=== PATIENT | female | born 1945 | race Caucasian/White ===

== ENCOUNTER 2016-11-30 01:09 | Inpatient (IN) | payer MEDICARE ==
[2016-11-30] MEDS ORDERED: NS 0.9% 1000 ML* 1,000 ML IV ONE (01:23)
[2016-11-30] MEDS ORDERED: Meclizine TAB* 12.5 MG PO ONE (01:23)
[2016-11-30 01:50] LABS: Hematocrit 42 % (35-47); Mean Corpuscular HGB Conc 34 g/dl (31-36); Mean Corpuscular Hemoglobin 33 pg (27-31); Mean Corpuscular Volume 96 fL (80-97); Mean Platelet Volume 8 um3 (7.4-10.4); Red Blood Count 4.32 10^6/ul (4.0-5.4); Red Cell Distribution Width 13 % (10.5-15); White Blood Count 13.7 10^3/ul (3.5-10.8)
[2016-11-30 01:53] LABS: Add Diff/Slide Review? Slide Review Added; Comments Flag Yes
[2016-11-30 02:03] LABS: ALT 15 U/L (7-52); AST 22 U/L (13-39); Albumin 3.8 g/dL (3.2-5.2); Alkaline Phosphatase 90 U/L (34-104); Anion Gap 4 mmol/L (2-11); BUN/Creatinine Ratio 29.1 (8-20); Blood Urea Nitrogen 30 mg/dL (6-24); C Reactive Protein 312.91 mg/L (< 5.00); CO2 Carbon Dioxide 37 mmol/L (22-32); Calcium 10.2 mg/dL (8.6-10.3); Chloride 96 mmol/L (101-111); Creatine Kinase 258 U/L (10-223); EGFR African American 67.6 (>60); EGFR Non-African American 52.5 (>60); Globulin 3.4 g/dL (2-4); Glucose 124 mg/dL (70-100); Potassium 3.6 mmol/L (3.5-5.0); Sodium 137 mmol/L (133-145); Total Protein 7.2 g/dL (6.4-8.9)
[2016-11-30 02:07] LABS: Troponin I 0.05 ng/mL (<0.04)
[2016-11-30 02:16] LABS: Acetaminophen < 15 mcg/mL
--- NOTE | 2016-11-30 03:31 | ED ---
Vinicius Miller Anna, scribed for Lily Wyatt MD on 11/30/16 at 0127 . Adult Trauma - HPI Summary HPI Summary: Patient is a 71 y/o female BIBA to [facility] after sudden onset of a fall in her apartment today. Her son saw her yesterday but was not able to reach her today so called EMS. She was found on the floor with drawers and cords on top of her. She does not remember falling. She has noticed slurred speech and has pain throughout her body. Denies weakness, acute injuries or acute back pain. No Hx CVA. Hx is significant for previous falls. - History of Current Complaint Stated Complaint: AMS Hx Obtained From: Patient, EMS Mechanism of Injury: Fall - Additional Pertinent History Primary Care Physician: WHIT - Allergy/Home Medications Allergies/Adverse Reactions: Allergies Allergy/AdvReac Type Severity Reaction Status Date / Time Bupropion [From Wellbutrin] Allergy Altered Verified 11/30/16 01:18 Mental Status Iodine Allergy KHOURY SKIN Verified 11/30/16 01:18 decongestants Allergy Intermediate hyperactivi Uncoded 11/30/16 01:18 ty anesthesia Allergy states Uncoded 11/30/16 01:18 becomes violentlyl ill with vomiting. ENVIRONMENTAL Allergy GI Upset Uncoded 11/30/16 01:18 PMH/Surg Hx/FS Hx/Imm Hx Endocrine/Hematology History: Reports: Hx Thyroid Disease - HASHIMOTOS Cardiovascular History: Reports: Hx Hypercholesterolemia, Hx Hypertension, Other Cardiovascular Problems/Disorders - LBBB- BENIGN GI History: Reports: Hx Gastroesophageal Reflux Disease, Hx Hiatal Hernia, Other GI Disorders - DIVERTICULITIS Musculoskeletal History: Reports: Hx Arthritis - BACK, HIPS, Other Musculoskeletal History - DDD, S/P CERVICAL FUSION, CERVICAL SPINAL STENOSIS Sensory History: Reports: Hx Cataracts - LILY, Hx Contacts or Glasses - GLASSES Denies: Hx Hearing Aid Opthamlomology History: Reports: Hx Cataracts - LILY, Hx Contacts or Glasses - GLASSES Psychiatric History: Reports: Hx Anxiety - R/T TMJ - Cancer History Cancer Type, Location and Year: skin ca nose Hx Chemotherapy: No Hx Radiation Therapy: No - Surgical History Surgery Procedure, Year, and Place: SPINAL FUSION, 1999, [place] 1999 RIGHT ANKLE AND FIBULA, [place]. 2001 RIGHT FIBULA SURGERY. TUBAL LIGATION 1974, [place] BILAT CATARACT 2014 [facility] [place] Hx Anesthesia Reactions: Yes - AGITATION - Family History Known Family History: Positive: Hypertension, Other - GERD - Social History Occupation: Retired Lives: Alone Alcohol Use: None Hx Substance Use: No Substance Use Type: Reports: None Hx Tobacco Use: Yes Smoking Status (MU): Heavy Every Day Tobacco Smoker Type: Cigarettes Amount Used/How Often: 3/4 PACK A DAY Length of Time of Smoking/Using Tobacco: 50 YRS Have You Smoked in the Last Year: Yes Review of Systems Constitutional: Negative Eyes: Negative ENT: Negative Cardiovascular: Negative Respiratory: Negative Gastrointestinal: Negative Genitourinary: Negative Positive: Myalgia Skin: Negative Positive: Syncope, Slurred Speech Psychological: Normal All Other Systems Reviewed And Are Negative: Yes Physical Exam Triage Information Reviewed: Yes Vital Signs On Initial Exam: Temp Pulse Resp BP Pulse Ox 98.9 F 109 20 167/48 95 11/30/16 01:10 11/30/16 01:10 11/30/16 01:10 11/30/16 01:10 11/30/16 01:10 Vital Signs Reviewed: Yes Appearance: Positive: Well-Appearing, No Pain Distress Skin: Positive: Warm, Skin Color Reflects Adequate Perfusion, Dry Eyes: Positive: EOMI, ARLEEN ENT: Positive: Pharynx normal, TMs normal Neck: Positive: Supple, Nontender Respiratory/Lung Sounds: Positive: Clear to Auscultation, Breath Sounds Present. Negative: Rales, Rhonchi, Wheezes Cardiovascular: Positive: RRR, Other - no gallops. Negative: Murmur, Rub Abdomen Description: Positive: Nontender, Soft, Other: - no rebound. Negative: Distended, Guarding Bowel Sounds: Positive: Present Musculoskeletal: Positive: Strength/ROM Intact. Negative: Edema Left, Edema Right Neurological: Positive: Normal, Sensory/Motor Intact, Alert, Oriented to Person Place, Time, CN Intact II-III - II-XII, Other - NIH Stroke Scale 0, slurred speech, Horizontal Nystagmus Psychiatric: Positive: Affect/Mood Appropriate Diagnostics - Vital Signs Vital Signs Temp Pulse Resp BP Pulse Ox 11/30/16 02:35 106 22 136/89 93 11/30/16 02:14 106 23 91 11/30/16 01:36 107 22 96 11/30/16 01:10 98.9 F 109 20 167/48 95 - Laboratory Lab Results: Lab Results 11/30/16 11/30/16 11/30/16 Range/Units 01:25 01:25 01:25 WBC 13.7 H (3.5-10.8) 10^3/ul RBC 4.32 (4.0-5.4) 10^6/ul Hgb 14.0 (12.0-16.0) g/dl Hct 42 (35-47) % MCV 96 (80-97) fL MCH 33 H (27-31) pg MCHC 34 (31-36) g/dl RDW 13 (10.5-15) % Plt Count 426 (150-450) 10^3/ul MPV 8 (7.4-10.4) um3 Neut % (Auto) 74.8 (38-83) % Lymph % (Auto) 6.8 L (25-47) % [place] % (Auto) 17.8 H (1-9) % Eos % (Auto) 0 (0-6) % Baso % (Auto) 0.6 (0-2) % Absolute Neuts (auto) 10.2 H (1.5-7.7) 10^3/ul Absolute Lymphs (auto) 0.9 L (1.0-4.8) 10^3/ul Absolute Monos (auto) 2.4 H (0-0.8) 10^3/ul Absolute Eos (auto) 0 (0-0.6) 10^3/ul Absolute Basos (auto) 0.1 (0-0.2) 10^3/ul Absolute Nucleated RBC 0 10^3/ul Nucleated RBC % 0 INR (Anticoag Therapy) 0.95 (0.89-1.11) Sodium 137 (133-145) mmol/L Potassium 3.6 (3.5-5.0) mmol/L Chloride 96 L (101-111) mmol/L Carbon Dioxide 37 H (22-32) mmol/L Anion Gap 4 (2-11) mmol/L BUN 30 H (6-24) mg/dL Creatinine 1.03 H (0.51-0.95) mg/dL Est GFR ( Amer) 67.6 (>60) Est GFR (Non-Af Amer) 52.5 (>60) BUN/Creatinine Ratio 29.1 H (8-20) Glucose 124 H (70-100) mg/dL Lactic Acid (0.5-2.0) mmol/L Calcium 10.2 (8.6-10.3) mg/dL Total Bilirubin 0.60 (0.2-1.0) mg/dL AST 22 (13-39) U/L ALT 15 (7-52) U/L Alkaline Phosphatase 90 (34-104) U/L Total Creatine Kinase 258 H (10-223) U/L Troponin I 0.05 H* (<0.04) ng/mL C-Reactive Protein 312.91 H (< 5.00) mg/L Total Protein 7.2 (6.4-8.9) g/dL Albumin 3.8 (3.2-5.2) g/dL Globulin 3.4 (2-4) g/dL Albumin/Globulin Ratio 1.1 (1-3) Acetaminophen < 15 mcg/mL 11/30/16 Range/Units 01:25 WBC (3.5-10.8) 10^3/ul RBC (4.0-5.4) 10^6/ul Hgb (12.0-16.0) g/dl Hct (35-47) % MCV (80-97) fL MCH (27-31) pg MCHC (31-36) g/dl RDW (10.5-15) % Plt Count (150-450) 10^3/ul MPV (7.4-10.4) um3 Neut % (Auto) (38-83) % Lymph % (Auto) (25-47) % [place] % (Auto) (1-9) % Eos % (Auto) (0-6) % Baso % (Auto) (0-2) % Absolute Neuts (auto) (1.5-7.7) 10^3/ul Absolute Lymphs (auto) (1.0-4.8) 10^3/ul Absolute Monos (auto) (0-0.8) 10^3/ul Absolute Eos (auto) (0-0.6) 10^3/ul Absolute Basos (auto) (0-0.2) 10^3/ul Absolute Nucleated RBC 10^3/ul Nucleated RBC % INR (Anticoag Therapy) (0.89-1.11) Sodium (133-145) mmol/L Potassium (3.5-5.0) mmol/L Chloride (101-111) mmol/L Carbon Dioxide (22-32) mmol/L Anion Gap (2-11) mmol/L BUN (6-24) mg/dL Creatinine (0.51-0.95) mg/dL Est GFR ( Amer) (>60) Est GFR (Non-Af Amer) (>60) BUN/Creatinine Ratio (8-20) Glucose (70-100) mg/dL Lactic Acid 1.3 (0.5-2.0) mmol/L Calcium (8.6-10.3) mg/dL Total Bilirubin (0.2-1.0) mg/dL AST (13-39) U/L ALT (7-52) U/L Alkaline Phosphatase (34-104) U/L Total Creatine Kinase (10-223) U/L Troponin I (<0.04) ng/mL C-Reactive Protein (< 5.00) mg/L Total Protein (6.4-8.9) g/dL Albumin (3.2-5.2) g/dL Globulin (2-4) g/dL Albumin/Globulin Ratio (1-3) Acetaminophen mcg/mL Result Diagrams: 11/30/16 01:25 11/30/16 01:25 Lab Statement: Any lab studies that have been ordered have been reviewed, and results considered in the medical decision making process. - Radiology CXR Xray Interpretation: No Acute Changes Radiology Interpretation Completed By: ED Physician - CT Head CT CT Interpretation: No Acute Changes CT Interpretation Completed By: Radiologist C-Spine CT CT Interpretation: No Acute Changes CT Interpretation Completed By: Radiologist - Impression: No acute fracture identified. Slight anterolisthesis of C3 on C4 likely chronic. Post fusion changes of C4-C6. - EKG 1:01 Cardiac Rate: Tachycardia - 107 bpm EKG Rhythm: Sinus Tachycardia EKG Interpretation: LBBB, unchanged from 11/09/2016 Adult Trauma Course/Dx - Course Course Of Treatment: 71 yo female with recent falls after ambien use. Comes in today after being found down on the ground when son couldn't get a hold of her. On exam she has lateral nystagmus and slurred speech but her nih scale is negative (except for the slurred speech)labs are good except for a wbc and elevated crp (we are awaiting a urine ) ct head and neck are negative. pt was unable to lift herself in bed due to weakness. Pt is to be seen and admitted by Dr. Pete - Diagnoses Provider Diagnoses: Fall, Altered mental status - Physician Notifications Discussed Care Of Patient With: Dr. Pete (hospitalist) at 3:15. Agrees to admit patient. Discharge - Discharge Plan Condition: Stable Disposition: ADMITTED TO [facility] Referrals: Avtar Swenson MD [Primary Care Provider] - NIH Scale - NIH Scale Level of Consciousness: Alert/Keenly Responsive Ask Patient the Month and His/Her Age: Both Correct Ask Pt to Open/Close Eyes and Sulfate Drier Machine Operator/Release Non-Paretic Hand: Both Correctly Visual Field Testing: No Visual Loss Facial Paresis-Pt to Smile & Close Eyes or Grimace Symmetry: Normal/Symmetrical Motor Function - Right Arm: No Drift-Holds 10 Seconds Motor Function - Left Arm: No Drift-Holds 10 Seconds Motor Function - Right Leg: No Drift-Holds 10 Seconds Motor Function - Left Leg: No Drift-Holds 10 Seconds Limb Ataxia-Must be out of Proportion to Weakness Present: Absent Sensory (Use Pinprick to Test Arms/Legs/Trunk/Face): Normal Best Language (Describe Picture, Name Items): No Aphasia Dysarthria (Read Several Words): Slurs Some Words Extinction and Inattention: No Abnormality The documentation as recorded by the Vinicius mcdonald Anna accurately reflects the service I personally performed and the decisions made by me, Lily Wyatt MD.
[2016-11-30 04:15] LABS: Urine Bacteria Absent (Absent); Urine Bilirubin Negative (Negative); Urine Glucose Negative (Negative); Urine Nitrite Negative (Negative)
[2016-11-30 04:33] LABS: Benzodiazepine Urine Screen None Detected (None Detect)
[2016-11-30] MEDS: Heparin VIAL(*) 5000 UNITS/ML VIAL (FIVE THOUSAND) SUBCUT SCH ×3 (05:51→22:04)
[2016-11-30] MEDS: NS 0.9% 1000 ML* 1,000 ML IV SCH ×2 (05:52→16:34)
--- NOTE | 2016-11-30 07:53 | RAD ---
Indication: Loss of consciousness, vertigo. CT of the brain with and without IV contrast. Ventricular structures are midline. No midline shift is noted. The extraction spaces are unremarkable. Motion artifact degrades the images. There is no evidence of intracranial mass or hemorrhage. Periventricular lucency is present consistent with chronic ischemic White change. The bony calvaria including mastoid air cells and paranasal sinuses are otherwise unremarkable. Overall no changes noted since 10/25/2016. IMPRESSION: No intracranial mass or hemorrhage is noted. Periventricular lucency consistent with chronic ischemic White matter change is noted.
--- NOTE | 2016-11-30 07:58 | RAD ---
Indication: Fall, shortness of breath. Single view of the chest is reviewed. No mediastinal shift is noted. Heart is of normal size and configuration. Lung cobb demonstrate no pleural fluid, pneumonia or pneumothorax. Comparison is made with previous exams dated 10/27/2016. IMPRESSION: No active cardiopulmonary disease is identified.
--- NOTE | 2016-11-30 09:08 | RAD ---
Indication: Neck injury. Vertigo and loss of consciousness. CT of the cervical spine was obtained in the axial plane. Sagittal and coronal reconstructed images were obtained. The skull base demonstrates no evidence of fracture. Mastoid air cells are unremarkable. The C1 ring is intact with no evidence of fracture. At C2-3, no disc protrusion is noted. No central or foraminal stenosis is noted. At C3-4, there is grade 1 spondylolisthesis likely due to facet arthropathy. There has been fusion of C4-5 and C5-6. This may contribute to the anterolisthesis. Spinal canal appears to be intact. No fracture is noted. At C4-5, there is fusion noted. No fracture is noted. No central or foraminal stenosis is noted. At C5-6, there is fusion. No central or foraminal stenosis is noted. Bone graft appears in place. At C6-7, degenerative disc disease with spondylytic ridge flattens the thecal sac. No foraminal stenosis is noted. At C7-T1, the disc space appears unremarkable. IMPRESSION: No fracture of the cervical spine is noted. Grade 1 spondylolisthesis of C3 on 4 likely secondary to fusion of C4 through C6. Degenerative disc disease at C6-7 is noted.
--- NOTE | 2016-11-30 09:49 | HP ---
HISTORY AND PHYSICAL: DATE OF ADMISSION: 11/30/16 CHIEF COMPLAINT: Altered mental status. HISTORY OF PRESENT ILLNESS: The patient is a 70-year-old woman who was discharged from [facility] late October and presents back after apparently being dizzy and falling and being found on the floor by her nephew. Unfortunately, nephew is not available for any history and the patient is quite confused. For example when asked about her falling and being on the floor initially she said she did, but then said she was not even there. She admits she is slurred in her speech, but cannot give me much more information. She denies any pain, shortness of breath, or any other symptoms. However, she does appear quite disoriented. PAST MEDICAL HISTORY: Significant for basal cell carcinoma, left bundle branch block, hiatal hernia, hypertension, GERD, hypothyroidism, Ángel's arthritis , Sjogren's, tobacco abuse, lung nodule, and left lower lobe emphysema, T12 compression fracture, pleural effusion, and she also fell at home prior to her last visit to the ER, which was thought to be secondary to medications. PAST SURGICAL HISTORY: Includes a cervical fusion December 1999 in [place] , right ankle and fibula fracture July 2002, bilateral cataract surgery. MEDICATIONS: Her medications currently are unknown, we are trying to get them from the PCP. It is unclear if anymore changes were made after the last time of discharge. ALLERGIES: She has an allergy/adverse reaction to WELLBUTRIN causes altered mental status, IODINE burned skin, DECONGESTANTS, hyperactivity. FAMILY HISTORY: Father with a history of melanoma; mother CVA. SOCIAL HISTORY: Smoking a pack of cigarettes a day for the past 50 years. Occasional alcohol use. Denies recreational drug use. Lives alone. It is her nephew, Brenden Mccollum, is her healthcare proxy. His cellphone is [phone]. REVIEW OF SYSTEMS: Unable to obtain because of patient's confusion. PHYSICAL EXAMINATION GENERAL: A pleasant woman lying in bed, in no acute distress. VITAL SIGNS: Temperature 98.2 degrees, heart rate 101 beats per minute, respiratory rate 19 breaths per minute, pulse ox 98%, blood pressure 136/89. HEENT: Normocephalic, atraumatic. Pupils are equal, round and reactive to light. Moist mucous membranes. NECK: Supple. No JVD, bruits, palpable thyroid or lymphadenopathy. CHEST: Clear to auscultation and percussion bilaterally. CARDIOVASCULAR: S1, S2 appreciated. ABDOMEN: Positive bowel sounds in all 4 quadrants . Soft, nontender, and nondistended. EXTREMITIES: No cyanosis, clubbing, or edema. +2 peripheral pulses bilaterally. NEUROLOGIC: Alert and oriented x1. Moves all extremities. 5/5 motor strength bilaterally but she does have some slurred speech. SKIN: No distinct rashes or abnormalities. LABORATORY DATA: White count is 13.7, hemoglobin 14.0, hematocrit 42, platelets 426. Sodium 137, potassium 3.6, chloride 96, CO2 37, BUN 30, creatinine 1.03, glucose 124, troponin 0.05. CRP 312.91. INR is 0.95. Urinalysis only has +3 rbc's. Toxicology is positive for opiates and cannabinoids. Her brain CT is pending. Preliminary shows no acute intracranial mass or hemorrhage. Cervical spine CT is also pending,No evidence of fracture. Chest x-ray shows no acute infiltrates. EKG shows sinus tachycardia with left bundle branch block pattern. ASSESSMENT AND PLAN: 1. Altered mental status. I think it is most likely secondary to medications. She does have opiates on board. There is a question of history of alcohol use, although I do not have an alcohol level at this point. We will admit her, do neurological checks q.4. I will get an MRI of her brain, I will get an echocardiogram as well. I will consider neuro consult if she does not clear up. At this point, I do not see any evidence of infectious process, although I am concerned about her CRP is so high for unexplained reason. 2. Hypertension. Right now, it appears to be borderline control, but we do not have a list of her medications. We will await that. 3. Hypothyroidism. We will also start on Synthroid once we get the proper dosage. 4. Leukocytosis. She had an elevated white count last time. Again that was an unclear etiology as well. 5. DVT prophylaxis. Heparin subcu. 6. The patient is a full code. TIME SPENT: Over 75 minutes was spent on this H and P and more than 40 minutes was spent in direct [id number] contact with the patient in evaluation, physical exam, counseling, and coordination of care. CC: Dr. Swenson* [id number]/[facility] #: [id number] [facility]
--- NOTE | 2016-11-30 10:12 | PN ---
Subjective Date of Service: 11/30/16 Interval History: patient was evaluated at the bedside found to be obtunded and very confused. She was given narcan 0.2 mg at the bedside and the patient awoke within 1 minute and was A+O x3. She reports she started having hallucinations last week, her nephew reports he saw her 4 days ago and she seemed "doped up" and reported she was "seeing things". Her son who lives in [facility] stayed with her over the weekend (I was not able to reach him as he is currently traveling to [place]). The patient was able to tell me her son was visiting and left tuesday. The pt reports at her baseline she has "lots of back pain" and feels that she cannot live without the pain medication. She reports she takes it 3-4 times a day. Currently she is not in pain. She denies any recent upper resp illness, fever or chills. reports she had loose stool yesterday and per nursing staff had loose stool today. Denies abd pain, CP or SOB. Denies vision changes Objective Active Medications: Heparin Sodium (Porcine) (Heparin Vial(*)) 5,000 units SUBCUT Q8HR [facility] Last Admin: 11/30/16 05:51 Dose: 5,000 units Sodium Chloride (Ns 0.9% 1000 Ml*) 1,000 mls @ 125 mls/hr IV PER RATE [facility] Last Admin: 11/30/16 05:52 Dose: 125 mls/hr Vital Signs 11/30/16 11/30/16 11/30/16 05:00 06:11 06:12 Temperature 98.2 F Pulse Rate 102 101 Respiratory 20 20 20 Rate Blood Pressure 146/69 146/72 (mmHg) O2 Sat by Pulse 93 92 Oximetry 11/30/16 11/30/16 07:27 08:00 Temperature 100.4 F Pulse Rate 106 Respiratory 16 16 Rate Blood Pressure 146/66 (mmHg) O2 Sat by Pulse 80 Oximetry Oxygen Devices in Use Now: Nasal Cannula Appearance: A+O x3 in NAD Eyes: No Scleral Icterus, PERRLA Ears/Nose/Mouth/Throat: NL Teeth, Lips, Gums, Mucous Membranes Moist Neck: NL Appearance and Movements; NL JVP Respiratory: Symmetrical Chest Expansion and Respiratory Effort, Clear to Auscultation Cardiovascular: NL Sounds; No Murmurs; No JVD, RRR, No Edema Abdominal: NL Sounds; No Tenderness; No Distention Lymphatic: No Cervical Adenopathy Extremities: No Edema Skin: No Rash or Ulcers, No Nodules or Sclerosis Neurological: Alert and Oriented x 3, NL Sensation, NL Muscle Strength and Tone , - - no pronator drift, EOMs intact. full ROM in all Ext. Lines/Tubes/Other Access: Clean, Dry and Intact Peripheral IV Result Diagrams: 11/30/16 01:25 11/30/16 01:25 Additional Lab and Data: Lab Results 11/30/16 11/30/16 11/30/16 Range/Units 01:25 01:25 01:25 WBC 13.7 H (3.5-10.8) 10^3/ul RBC 4.32 (4.0-5.4) 10^6/ul Hgb 14.0 (12.0-16.0) g/dl Hct 42 (35-47) % MCV 96 (80-97) fL MCH 33 H (27-31) pg MCHC 34 (31-36) g/dl RDW 13 (10.5-15) % Plt Count 426 (150-450) 10^3/ul MPV 8 (7.4-10.4) um3 Neut % (Auto) 74.8 (38-83) % Lymph % (Auto) 6.8 L (25-47) % [place] % (Auto) 17.8 H (1-9) % Eos % (Auto) 0 (0-6) % Baso % (Auto) 0.6 (0-2) % Absolute Neuts (auto) 10.2 H (1.5-7.7) 10^3/ul Absolute Lymphs (auto) 0.9 L (1.0-4.8) 10^3/ul Absolute Monos (auto) 2.4 H (0-0.8) 10^3/ul Absolute Eos (auto) 0 (0-0.6) 10^3/ul Absolute Basos (auto) 0.1 (0-0.2) 10^3/ul Absolute Nucleated RBC 0 10^3/ul Nucleated RBC % 0 INR (Anticoag Therapy) 0.95 (0.89-1.11) Sodium 137 (133-145) mmol/L Potassium 3.6 (3.5-5.0) mmol/L Chloride 96 L (101-111) mmol/L Carbon Dioxide 37 H (22-32) mmol/L Anion Gap 4 (2-11) mmol/L BUN 30 H (6-24) mg/dL Creatinine 1.03 H (0.51-0.95) mg/dL Est GFR ( Amer) 67.6 (>60) Est GFR (Non-Af Amer) 52.5 (>60) BUN/Creatinine Ratio 29.1 H (8-20) Glucose 124 H (70-100) mg/dL Lactic Acid (0.5-2.0) mmol/L Calcium 10.2 (8.6-10.3) mg/dL Total Bilirubin 0.60 (0.2-1.0) mg/dL AST 22 (13-39) U/L ALT 15 (7-52) U/L Alkaline Phosphatase 90 (34-104) U/L Total Creatine Kinase 258 H (10-223) U/L Troponin I 0.05 H* (<0.04) ng/mL C-Reactive Protein 312.91 H (< 5.00) mg/L Total Protein 7.2 (6.4-8.9) g/dL Albumin 3.8 (3.2-5.2) g/dL Globulin 3.4 (2-4) g/dL Albumin/Globulin Ratio 1.1 (1-3) Acetaminophen < 15 mcg/mL 11/30/16 Range/Units 01:25 WBC (3.5-10.8) 10^3/ul RBC (4.0-5.4) 10^6/ul Hgb (12.0-16.0) g/dl Hct (35-47) % MCV (80-97) fL MCH (27-31) pg MCHC (31-36) g/dl RDW (10.5-15) % Plt Count (150-450) 10^3/ul MPV (7.4-10.4) um3 Neut % (Auto) (38-83) % Lymph % (Auto) (25-47) % [place] % (Auto) (1-9) % Eos % (Auto) (0-6) % Baso % (Auto) (0-2) % Absolute Neuts (auto) (1.5-7.7) 10^3/ul Absolute Lymphs (auto) (1.0-4.8) 10^3/ul Absolute Monos (auto) (0-0.8) 10^3/ul Absolute Eos (auto) (0-0.6) 10^3/ul Absolute Basos (auto) (0-0.2) 10^3/ul Absolute Nucleated RBC 10^3/ul Nucleated RBC % INR (Anticoag Therapy) (0.89-1.11) Sodium (133-145) mmol/L Potassium (3.5-5.0) mmol/L Chloride (101-111) mmol/L Carbon Dioxide (22-32) mmol/L Anion Gap (2-11) mmol/L BUN (6-24) mg/dL Creatinine (0.51-0.95) mg/dL Est GFR ( Amer) (>60) Est GFR (Non-Af Amer) (>60) BUN/Creatinine Ratio (8-20) Glucose (70-100) mg/dL Lactic Acid 1.3 (0.5-2.0) mmol/L Calcium (8.6-10.3) mg/dL Total Bilirubin (0.2-1.0) mg/dL AST (13-39) U/L ALT (7-52) U/L Alkaline Phosphatase (34-104) U/L Total Creatine Kinase (10-223) U/L Troponin I (<0.04) ng/mL C-Reactive Protein (< 5.00) mg/L Total Protein (6.4-8.9) g/dL Albumin (3.2-5.2) g/dL Globulin (2-4) g/dL Albumin/Globulin Ratio (1-3) Acetaminophen mcg/mL Assess/Plan/Problems-Billing Assessment: Ms. Willoughby is a 71 yo female with a PMH of LLLB, HTN, hypothyroidism , tobacco abuse who was hospitalized at [facility] 10/25-10/30/16 for syncopal episode and T12 compression fx where she was DC'd to [facility] for rehab. Patient now returning after being found down at home on 11/29 - Patient Problems (1) Altered mental status Comment: - suspect narcotic/polypharmacy overdose, now A+O x3 after given narcan 0.2 mg. it is of concern that the pt is on Ambien, gabapentin, flexeril and norco. - CT brain negative. ammonia normal. CRP 312? no obvious signs of infection. Recheck labs in am, continue to monitor. - PT/OT (2) HTN (hypertension) Comment: Normotensive at this time. continue home medications losartan and cardizem (3) Rhabdomyolysis Comment: - Last seen 1 days prior to being found. - mildly elevated CPK. Hold statin. - continue IVFs - recheck in am (4) Tobacco abuse Comment: - nicotine replacement - smoking cessation (5) Hypothyroid Comment: check TSH, continue synthroid (6) DVT prophylaxis Comment: HSQ (7) Full code status Status and Disposition: inpatient with Altered mental status thought to be secondary to polypharmacy opioid overdose.
[2016-11-30] MEDS: cefTRIAXone VIAL(*) 1,000 MG in NS 0.9% 50 ML* 50 ML IVPB SCH (12:22)
[2016-11-30 13:17] LABS: FIO2 4
[2016-11-30 13:20] LABS: PCO2 Arterial 44 mmHg (35-45)
[2016-11-30] MEDS ORDERED: Naloxone* 0.4 MG/ML 1 ML VIAL IV PUSH ONE (13:24)
[2016-11-30] MEDS ORDERED: Naloxone* 0.4 MG/ML 1 ML VIAL ONE (13:29)
--- NOTE | 2016-11-30 16:14 | ECHO ---
Patient: MARK DEL TORO Rec#: [id number] : 1945 Date: 11/30/2016 Age: 71y Height: 167 cm / 65.7 in Weight: 72 kg / 158.7 lbs Sex: F BSA: 1.81 Room#: 436 Admit Date#: 11/30/2016 Type: Inpatient Referring: Indra Pete MD Reading: Felipe Watters MD Piano Refinisher: Ramy Melgar RDCS Transthoracic Echocardiogram Indication: Syncope BP: 146/72 HR: 94 Rhythm: A-Fib Findings History: HLD,HTN,LBBB,GERD Technical Comments: The study is technically difficult. The study is technically limited due to patient body habitus. The study is technically limited due to the patient's history of COPD. The study is technically limited due to the patient's smoking history. Left Ventricle: The left ventricle is not well visualized. The left ventricular chamber size is normal. There is mildly decreased left ventricular systolic function. The estimated ejection fraction is 45-50%. There is a left ventricular septal wall motion abnormality observed, possibly due to the presence of a left bundle branch block. The assessment of diastolic function is non-diagnostic. Left Atrium: The left atrium is not well visualized. The left atrial chamber size is normal. Right Ventricle: The right ventricular chamber size and systolic function are within normal limits. The right ventricular cavity size is normal. Right Atrium: The right atrium is not well visualized. The right atrial cavity size is normal. Aortic Valve: The aortic valve structure is not well visualized. There is no evidence of aortic regurgitation. There is no evidence of aortic stenosis. Mitral Valve: The mitral valve structure is not well visualized. The mitral valve leaflets are mildly thickened. There is no evidence of mitral regurgitation. There is no evidence of mitral stenosis. Tricuspid Valve: The tricuspid valve structure is not well visualized. There is no evidence of tricuspid valve regurgitation. Pulmonic Valve: The pulmonic valve structure is not well visualized. Pericardium: There is no pericardial effusion. Aorta: The aortic arch is not well visualized. There is no dilation of the aortic root. Pulmonary Artery: The main pulmonary artery is not well visualized. Venous: The inferior vena cava appears normal. There is a greater than 50% respiratory change in the inferior vena cava dimension. Conclusions The study is technically difficult. The images are not of an acceptable quality for reliable interpretation. Limited comments can be made. No accurate valve assessment is possible. In limited views the is some segmental wall motion abnormality involving the upper interventricular septum and anterior wall which could be due to a conduction abnormality. Measurements Name Value Normal Range RVIDd (AP) 2D 2.4 cm (0.9 - 2.6) RVDdMajor (2D) 2.8 cm (2.2 - 4.4) RAd ISD 4CH 3.6 cm (3.4 - 4.9) RA (A4C)W 3.2 cm (2.9 - 4.6) IVSd (2D) 1.1 cm (0.6 - 1) LVPWd (2D) 1.2 cm (0.6 - 1) LVIDd (2D) 4.4 cm (3.6 - 5.4) LVIDs (2D) 3.2 cm - Aortic Annulus 1.9 cm (1.4 - 2.6) Ao root diameter (2D) 24 cm (2.1 - 3.5) Ascending Ao 2.4 cm (2.1 - 3.4) LA dimension (AP) 2D 2.9 cm (2.3 - 3.8) LAd ISD 4CH 5.1 cm (2.9 - 5.3) LA ISD 4CH W 2.9 cm (2.5 - 4.5) Name Value Normal Range LA ESV SP 4CH (A/L) 36 ml - LA ESV SP 2CH (A/L) 31 ml - LA ESV BP (A/L) 37 ml - LA ESV BP (A/L) index 20.18 ml/m2 - LA ESV SP 4CH (MOD) 32 ml - LA ESV SP 2CH (MOD) 27 ml - Name Value Normal Range MV E-wave Vmax 1.14 m/sec - MV deceleration time 95 msec - MV A-wave Vmax 1.16 m/sec - MV E:A ratio 0.98 ratio - Name Value Normal Range LVOT Vmax 0.71 m/sec - Name Value Normal Range IVC diameter 0.92 cm - Name Value Normal Range PV Vmax 0.8 m/sec -
[2016-11-30 17:12] LABS: TSH (Thyroid Stimulating Horm) 1.18 mcIU/mL (0.34-5.60)
[2016-11-30] MEDS: Cholecalciferol TAB* 1000 UNITS PO SCH (18:31)
[2016-11-30] MEDS: Atorvastatin* 20 MG TAB PO SCH (18:31)
[2016-11-30] MEDS ORDERED: NS 0.9% 1000 ML* 1,000 ML IV SCH (19:14)
[2016-11-30] MEDS ORDERED: HYDROcodone/ACETAMIN 5-325 MG* 1 TAB PO PRN (19:14)
[2016-11-30] MEDS: celeCOXIB CAP* 100 MG PO SCH (20:02)
[2016-11-30] MEDS: Lidocaine Patch REMOVE* 1 NOTE MISC PATCH OFF SCH (21:10)
[2016-11-30] MEDS: Docusate CAP* 100 MG PO SCH (21:10)
--- NOTE | 2016-11-30 22:10 | RAD ---
HISTORY: Altered mental status COMPARISONS: CT of the brain dated 11/30/16 TECHNIQUE: The following sequences were obtained of the head: Sagittal T1-weighted images, axial T2-weighted images, axial FLAIR images, axial susceptibility weighted images, axial T1-weighted images. Additionally, axial diffusion-weighted images were obtained with calculated apparent diffusion coefficients.. FINDINGS: HEMORRHAGE/INFARCT: There is no hemorrhage or acute infarct. MASSES/SHIFT: There is no mass or shift. EXTRA-AXIAL SPACES/MENINGES: There are no extra-axial fluid collections. SULCI AND VENTRICLES: There are mild symmetric involutional changes of the ventricles and sulci. CEREBRUM: There are diffuse periventricular and subcortical white matter T2 bright foci. More confluent foci are seen at the right greater than left basal ganglia. There is no corresponding finding on the DWI imaging. This appearance is most consistent with chronic microvascular disease. The oliver-white matter differentiation is otherwise adequately maintained. BRAINSTEM: There are no focal parenchymal abnormalities. CEREBELLUM: There are no focal parenchymal abnormalities. The cerebellar tonsils are normal in size and position. SELLA: The sella is normal. PINEAL: The pineal region is clear. CP ANGLE/TEMPORAL BONES: The labyrinthine structures are grossly normal. VESSELS: Normal flow-voids are noted within the visualized vertebral vasculature. DIFFUSION ABNORMALITIES: There are no diffusion abnormalities. PARANASAL SINUSES/MASTOIDS: The paranasal sinuses are clear. ORBITS: The orbits are unremarkable. BONES AND SOFT TISSUE: No bone or soft tissue abnormalities are noted. IMPRESSION: 1. NO MRI EVIDENCE OF ACUTE TERRITORIAL INFARCTION. 2. FINDINGS ARE MOST CONSISTENT WITH CHRONIC MICROVASCULAR DISEASE AND RIGHT GREATER THAN LEFT CHRONIC LACUNAR INFARCTIONS. DEMYELINATING DISEASE COULD HAVE THIS APPEARANCE BUT IS CONSIDERED LESS LIKELY.
[2016-12-01 05:45] LABS: Hematocrit 35 % (35-47); Hemoglobin 11.6 g/dl (12.0-16.0); Mean Corpuscular HGB Conc 33 g/dl (31-36); Mean Corpuscular Hemoglobin 32 pg (27-31); Mean Corpuscular Volume 96 fL (80-97); Mean Platelet Volume 8 um3 (7.4-10.4); Red Blood Count 3.66 10^6/ul (4.0-5.4); Red Cell Distribution Width 13 % (10.5-15); White Blood Count 11.6 10^3/ul (3.5-10.8)
[2016-12-01 05:53] LABS: Add Diff/Slide Review? Slide Review Added; Comments Flag Yes
[2016-12-01] MEDS: Heparin VIAL(*) 5000 UNITS/ML VIAL (FIVE THOUSAND) SUBCUT SCH ×3 (06:04→22:07)
[2016-12-01] MEDS: Levothyroxine TAB* 25 MCG TAB PO SCH (06:04)
[2016-12-01 06:05] LABS: BUN/Creatinine Ratio 21.2 (8-20); C Reactive Protein 151.73 mg/L (< 5.00); Calcium 7.7 mg/dL (8.6-10.3); EGFR African American 112.9 (>60); EGFR Non-African American 87.8 (>60); Potassium 2.8 mmol/L (3.5-5.0)
[2016-12-01] MEDS: Docusate CAP* 100 MG PO SCH (07:40)
[2016-12-01] MEDS: Famotidine TAB* 20 MG PO SCH (08:58)
[2016-12-01] MEDS: Losartan TAB* 25 MG PO SCH (08:59)
[2016-12-01] MEDS: Diltiazem CD CAP* 240 MG PO SCH (08:59)
[2016-12-01] MEDS: Lidocaine PATCH 5%* 1 PATCH TRANSDERM SCH (08:59)
[2016-12-01] MEDS: Sertraline* 100 MG TAB PO SCH (08:59)
[2016-12-01] MEDS: celeCOXIB CAP* 100 MG PO SCH ×2 (08:59→20:20)
[2016-12-01] MEDS ORDERED: Potassium Chlor TAB* 20 MEQ TAB.ER PO ONE ×3 (09:09→15:00)
[2016-12-01 09:26] LABS: Magnesium 2.1 mg/dL (1.9-2.7)
[2016-12-01] MEDS ORDERED: KCL 20 MEQ/100 ML IVPREMIX* 20 MEQ/100 ML BAG IV SCH (10:00)
--- NOTE | 2016-12-01 10:33 | RAD ---
INDICATION: Hypoxia. COMPARISON: Comparison is made with a prior study from [facility] 2017. TECHNIQUE: AP and lateral views of the chest were obtained. FINDINGS: The heart is within normal limits in size. Mediastinal and hilar contours appear within normal limits. The lungs are slightly hyperinflated and clear. No pleural effusion is seen. IMPRESSION: NO EVIDENCE FOR ACTIVE CARDIOPULMONARY DISEASE.
--- NOTE | 2016-12-01 11:30 | PN ---
Subjective Date of Service: 12/01/16 Interval History: . patient reports she was confused this morning not knowing where she was but now states she feels much clearer. Per son he confirms she is "almost back to her baseline". Patient doesnt remember the events at her house and doesnt remember coming to the hospital. Today she denies fever or chills. no cough, SOB or CP. No abdominal pain, no nausea. she does report decreased appetite. she reports diarrhea, she reports this weekend she took " a lot of laxative" due to constipation and stated having loose stools on tuesday. Denies back pain this morning. Objective Active Medications: Acetaminophen/Hydrocodone Bitart ([place] 5-325 Tab*) 1 tab PO Q6H PRN PRN Reason: PAIN SCALE 6-10 Atorvastatin Calcium (Lipitor*) 20 mg PO QPM [facility] Last Admin: 11/30/16 18:31 Dose: 20 mg Celecoxib (Celebrex Cap*) 100 mg PO BID [facility] Last Admin: 12/01/16 08:59 Dose: 100 mg Cholecalciferol (Vitamin D Tab*) 1,000 units PO QPM [facility] Last Admin: 11/30/16 18:31 Dose: 1,000 units Diltiazem HCl (Cardizem Cd Cap*) 240 mg PO QAM [facility] Last Admin: 12/01/16 08:59 Dose: 240 mg Famotidine (Pepcid Tab*) 40 mg PO DAILY [facility] Last Admin: 12/01/16 08:58 Dose: 40 mg Heparin Sodium (Porcine) (Heparin Vial(*)) 5,000 units SUBCUT Q8HR [facility] Last Admin: 12/01/16 06:04 Dose: 5,000 units Ceftriaxone Sodium 1,000 mg/ (Sodium Chloride) 50 mls @ 200 mls/hr IVPB Q24H [facility] Last Admin: 11/30/16 12:22 Dose: 200 mls/hr Levothyroxine Sodium (Synthroid Tab*) 37.5 mcg PO 0600 [facility] Last Admin: 12/01/16 06:04 Dose: 37.5 mcg Lidocaine (Lidoderm 5% Patch*) 1 patch TRANSDERM DAILY [facility] Last Admin: 12/01/16 08:59 Dose: 1 patch Losartan Potassium (Cozaar Tab*) 50 mg PO DAILY [facility] Last Admin: 12/01/16 08:59 Dose: 50 mg Pharmacy Profile Note (Lidocaine Patch Remove*) 1 note PATCH OFF 2100 [facility] Last Admin: 11/30/16 21:10 Dose: Not Given Potassium Chloride (Klor Con Er Tab*) 20 meq PO ONCE ONE Stop: 12/01/16 15:01 Sertraline HCl (Zoloft*) 100 mg PO DAILY [facility] Last Admin: 12/01/16 08:59 Dose: 100 mg Vital Signs 11/30/16 11/30/16 11/30/16 11:48 15:28 16:00 Temperature 100.2 F 97.2 F Pulse Rate 89 90 Respiratory 18 17 Rate Blood Pressure 110/63 134/68 (mmHg) O2 Sat by Pulse 97 97 97 Oximetry 11/30/16 11/30/16 11/30/16 19:46 20:00 23:34 Temperature 98.3 F 99.0 F Pulse Rate 99 94 Respiratory 18 16 16 Rate Blood Pressure 136/65 137/58 (mmHg) O2 Sat by Pulse 100 94 Oximetry 12/01/16 12/01/16 12/01/16 03:50 04:31 07:39 Temperature 98.5 F 100.5 F Pulse Rate 86 85 Respiratory 16 16 Rate Blood Pressure 140/60 140/54 (mmHg) O2 Sat by Pulse 90 92 94 Oximetry 12/01/16 12/01/16 07:45 11:10 Temperature 99.0 F Pulse Rate 96 Respiratory 16 16 Rate Blood Pressure 147/64 (mmHg) O2 Sat by Pulse 94 94 Oximetry Oxygen Devices in Use Now: None Appearance: 70 yo female sitting up in bed in NAD A+Ox3. Eyes: No Scleral Icterus, PERRLA Ears/Nose/Mouth/Throat: NL Teeth, Lips, Gums, Clear Oropharnyx, Mucous Membranes Moist Neck: NL Appearance and Movements; NL JVP Respiratory: Symmetrical Chest Expansion and Respiratory Effort, Clear to Auscultation Cardiovascular: NL Sounds; No Murmurs; No JVD, RRR, No Edema Abdominal: NL Sounds; No Tenderness; No Distention Lymphatic: No Cervical Adenopathy Extremities: No Edema, No Clubbing, Cyanosis Skin: No Rash or Ulcers, No Nodules or Sclerosis Neurological: Alert and Oriented x 3, NL Sensation, NL Muscle Strength and Tone Lines/Tubes/Other Access: Clean, Dry and Intact Peripheral IV Nutrition: Taking PO's Result Diagrams: 12/01/16 05:16 12/01/16 05:16 Additional Lab and Data: Lab Results 11/30/16 11/30/16 11/30/16 Range/Units 01:25 01:25 01:25 WBC 13.7 H (3.5-10.8) 10^3/ul RBC 4.32 (4.0-5.4) 10^6/ul Hgb 14.0 (12.0-16.0) g/dl Hct 42 (35-47) % MCV 96 (80-97) fL MCH 33 H (27-31) pg MCHC 34 (31-36) g/dl RDW 13 (10.5-15) % Plt Count 426 (150-450) 10^3/ul MPV 8 (7.4-10.4) um3 Neut % (Auto) 74.8 (38-83) % Lymph % (Auto) 6.8 L (25-47) % [place] % (Auto) 17.8 H (1-9) % Eos % (Auto) 0 (0-6) % Baso % (Auto) 0.6 (0-2) % Absolute Neuts (auto) 10.2 H (1.5-7.7) 10^3/ul Absolute Lymphs (auto) 0.9 L (1.0-4.8) 10^3/ul Absolute Monos (auto) 2.4 H (0-0.8) 10^3/ul Absolute Eos (auto) 0 (0-0.6) 10^3/ul Absolute Basos (auto) 0.1 (0-0.2) 10^3/ul Absolute Nucleated RBC 0 10^3/ul Nucleated RBC % 0 INR (Anticoag Therapy) 0.95 (0.89-1.11) Sodium 137 (133-145) mmol/L Potassium 3.6 (3.5-5.0) mmol/L Chloride 96 L (101-111) mmol/L Carbon Dioxide 37 H (22-32) mmol/L Anion Gap 4 (2-11) mmol/L BUN 30 H (6-24) mg/dL Creatinine 1.03 H (0.51-0.95) mg/dL Est GFR ( Amer) 67.6 (>60) Est GFR (Non-Af Amer) 52.5 (>60) BUN/Creatinine Ratio 29.1 H (8-20) Glucose 124 H (70-100) mg/dL Lactic Acid (0.5-2.0) mmol/L Calcium 10.2 (8.6-10.3) mg/dL Total Bilirubin 0.60 (0.2-1.0) mg/dL AST 22 (13-39) U/L ALT 15 (7-52) U/L Alkaline Phosphatase 90 (34-104) U/L Total Creatine Kinase 258 H (10-223) U/L Troponin I 0.05 H* (<0.04) ng/mL C-Reactive Protein 312.91 H (< 5.00) mg/L Total Protein 7.2 (6.4-8.9) g/dL Albumin 3.8 (3.2-5.2) g/dL Globulin 3.4 (2-4) g/dL Albumin/Globulin Ratio 1.1 (1-3) Acetaminophen < 15 mcg/mL 11/30/16 Range/Units 01:25 WBC (3.5-10.8) 10^3/ul RBC (4.0-5.4) 10^6/ul Hgb (12.0-16.0) g/dl Hct (35-47) % MCV (80-97) fL MCH (27-31) pg MCHC (31-36) g/dl RDW (10.5-15) % Plt Count (150-450) 10^3/ul MPV (7.4-10.4) um3 Neut % (Auto) (38-83) % Lymph % (Auto) (25-47) % [place] % (Auto) (1-9) % Eos % (Auto) (0-6) % Baso % (Auto) (0-2) % Absolute Neuts (auto) (1.5-7.7) 10^3/ul Absolute Lymphs (auto) (1.0-4.8) 10^3/ul Absolute Monos (auto) (0-0.8) 10^3/ul Absolute Eos (auto) (0-0.6) 10^3/ul Absolute Basos (auto) (0-0.2) 10^3/ul Absolute Nucleated RBC 10^3/ul Nucleated RBC % INR (Anticoag Therapy) (0.89-1.11) Sodium (133-145) mmol/L Potassium (3.5-5.0) mmol/L Chloride (101-111) mmol/L Carbon Dioxide (22-32) mmol/L Anion Gap (2-11) mmol/L BUN (6-24) mg/dL Creatinine (0.51-0.95) mg/dL Est GFR ( Amer) (>60) Est GFR (Non-Af Amer) (>60) BUN/Creatinine Ratio (8-20) Glucose (70-100) mg/dL Lactic Acid 1.3 (0.5-2.0) mmol/L Calcium (8.6-10.3) mg/dL Total Bilirubin (0.2-1.0) mg/dL AST (13-39) U/L ALT (7-52) U/L Alkaline Phosphatase (34-104) U/L Total Creatine Kinase (10-223) U/L Troponin I (<0.04) ng/mL C-Reactive Protein (< 5.00) mg/L Total Protein (6.4-8.9) g/dL Albumin (3.2-5.2) g/dL Globulin (2-4) g/dL Albumin/Globulin Ratio (1-3) Acetaminophen mcg/mL Assess/Plan/Problems-Billing Assessment: Ms. Willoughby is a 71 yo female with a PMH of LLLB, HTN, hypothyroidism , tobacco abuse who was hospitalized at [facility] 10/25-10/30/16 for syncopal episode and T12 compression fx where she was DC'd to [facility] for rehab. Patient now returning after being found down at home on 11/29 - Patient Problems (1) Altered mental status Comment: - suspect narcotic/polypharmacy overdose, was given narcan 0.2 mg yesterday with good effect. A+Ox3 since yesterday but is still noted to be confused with intermittent confusion suspected to be delirium. it is of concern that the pt is on Ambien, gabapentin, flexeril and norco. I suggest we DC her ambien, per patient she is no longer taking flexeril, son plans to bring in all her home medications today. - CT brain and MRI negative. Reviewed the MRI with Dr. Berry, neurologist, (side -consult) who states there is no acute infarct and only showing chronic lacunar infarctions. Dr. Berry does not think she has demyelinating disease. ammonia normal. CRP down 150, no obvious signs of infection. Recheck labs in am, continue to monitor. - PT/OT (2) HTN (hypertension) Comment: Normotensive at this time. continue home medications losartan and cardizem (3) Rhabdomyolysis Comment: - resolved (4) Tobacco abuse Comment: - nicotine replacement - smoking cessation (5) Hypothyroid Comment: TSH WNLs, continue synthroid (6) DVT prophylaxis Comment: HSQ (7) Full code status Status and Disposition: inpatient with Altered mental status thought to be secondary to polypharmacy opioid overdose.
[2016-12-01] MEDS: cefTRIAXone VIAL(*) 1,000 MG in NS 0.9% 50 ML* 50 ML IVPB SCH (12:28)
[2016-12-01] MEDS ORDERED: Al Hydrox/Mg Hydrox/Simet LIQ* 30 ML UDC PO ONE (13:47)
[2016-12-01] MEDS ORDERED: Lidocaine 2% VISCOUS* 15 ML UDC PO ONE (13:47)
[2016-12-01] MEDS ORDERED: Omeprazole CAP* 20 MG PO ONE (15:46)
[2016-12-01] MEDS: Atorvastatin* 20 MG TAB PO SCH (18:34)
[2016-12-01] MEDS: Cholecalciferol TAB* 1000 UNITS PO SCH (18:34)
[2016-12-01] MEDS: Lidocaine Patch REMOVE* 1 NOTE MISC PATCH OFF SCH (20:19)
[2016-12-02 06:22] LABS: Hematocrit 37 % (35-47); Hemoglobin 12.7 g/dl (12.0-16.0); Mean Corpuscular HGB Conc 34 g/dl (31-36); Mean Corpuscular Hemoglobin 33 pg (27-31); Mean Corpuscular Volume 94 fL (80-97); Mean Platelet Volume 8 um3 (7.4-10.4); Red Blood Count 3.92 10^6/ul (4.0-5.4); Red Cell Distribution Width 13 % (10.5-15); White Blood Count 14.1 10^3/ul (3.5-10.8)
[2016-12-02] MEDS: Levothyroxine TAB* 25 MCG TAB PO SCH (06:23)
[2016-12-02] MEDS: Heparin VIAL(*) 5000 UNITS/ML VIAL (FIVE THOUSAND) SUBCUT SCH ×3 (06:25→22:33)
[2016-12-02 06:30] LABS: Add Diff/Slide Review? Slide Review Added; Comments Flag Yes
[2016-12-02 06:48] LABS: BUN/Creatinine Ratio 9.4 (8-20); C Reactive Protein 79.88 mg/L (< 5.00); Calcium 8.4 mg/dL (8.6-10.3); EGFR African American 145.4 (>60); EGFR Non-African American 113.1 (>60); Potassium 2.9 mmol/L (3.5-5.0)
[2016-12-02] MEDS: Ascorbic Acid TAB* 500 MG PO SCH (09:23)
[2016-12-02] MEDS: Losartan TAB* 25 MG PO SCH (09:23)
[2016-12-02] MEDS: Lidocaine PATCH 5%* 1 PATCH TRANSDERM SCH (09:23)
[2016-12-02] MEDS: Famotidine TAB* 20 MG PO SCH (09:24)
[2016-12-02] MEDS: Sertraline* 100 MG TAB PO SCH (09:24)
[2016-12-02] MEDS: Cyanocobalamin TAB* 500 MCG PO SCH (09:24)
[2016-12-02] MEDS: Diltiazem CD CAP* 240 MG PO SCH (09:24)
[2016-12-02] MEDS: celeCOXIB CAP* 100 MG PO SCH ×2 (09:24→22:31)
[2016-12-02] MEDS ORDERED: Potassium Chlor TAB* 20 MEQ TAB.ER PO ONE ×2 (12:57→17:00)
[2016-12-02] MEDS ORDERED: KCL 20 MEQ/100 ML IVPREMIX* 20 MEQ/100 ML BAG IV SCH (13:00)
[2016-12-02 13:22] LABS: Magnesium 1.5 mg/dL (1.9-2.7)
[2016-12-02] MEDS: KCL 20 MEQ/100 ML IVPREMIX* 20 MEQ/100 ML BAG IV SCH ×2 (13:43→17:20)
--- NOTE | 2016-12-02 16:05 | PN ---
Subjective Date of Service: 12/02/16 Interval History: patient reports she feels much better today and almost feels that she could go home but is having "very loose stools every hour". Pt reports she feels that her diarrhea has worsened today. No blood noted in stools. Mild nausea, no vomiting. No abdominal pain. Little appetite. No fevers or chills. Denies any more confusion. Reports she has no back pain off the narcotics. Reports overall she feels much better and reports she feels stable ambulating with walker. Denies numbness, tingling or weakness. No difficulty urinating. Biggest c/o is diarrhea, otherwise she feels that she could go home. Objective Active Medications: Acetaminophen/Hydrocodone Bitart ([place] 5-325 Tab*) 1 tab PO Q6H PRN PRN Reason: PAIN SCALE 6-10 Ascorbic Acid (Vitamin C Tab*) 1,000 mg PO DAILY [facility] Last Admin: 12/02/16 09:23 Dose: 1,000 mg Atorvastatin Calcium (Lipitor*) 20 mg PO QPM [facility] Last Admin: 12/01/16 18:34 Dose: 20 mg Celecoxib (Celebrex Cap*) 100 mg PO BID [facility] Last Admin: 12/02/16 09:24 Dose: 100 mg Cholecalciferol (Vitamin D Tab*) 1,000 units PO QPM [facility] Last Admin: 12/01/16 18:34 Dose: 1,000 units Cyanocobalamin (Vitamin B12 Tab*) 500 mcg PO DAILY [facility] Last Admin: 12/02/16 09:24 Dose: 500 mcg Diltiazem HCl (Cardizem Cd Cap*) 240 mg PO QAM [facility] Last Admin: 12/02/16 09:24 Dose: 240 mg Famotidine (Pepcid Tab*) 40 mg PO DAILY [facility] Last Admin: 12/02/16 09:24 Dose: 40 mg Heparin Sodium (Porcine) (Heparin Vial(*)) 5,000 units SUBCUT Q8HR [facility] Last Admin: 12/02/16 13:43 Dose: 5,000 units Potassium Chloride (Potassium Chloride 20 Meq/100 Ml Ivpremix*) 20 meq in 100 mls @ 50 mls/hr IV Q2H [facility] Stop: 12/02/16 16:59 Last Admin: 12/02/16 13:43 Dose: 50 mls/hr Levothyroxine Sodium (Synthroid Tab*) 37.5 mcg PO 0600 [facility] Last Admin: 12/02/16 06:23 Dose: 37.5 mcg Lidocaine (Lidoderm 5% Patch*) 1 patch TRANSDERM DAILY [facility] Last Admin: 12/02/16 09:23 Dose: 1 patch Losartan Potassium (Cozaar Tab*) 50 mg PO DAILY [facility] Last Admin: 12/02/16 09:23 Dose: 50 mg Pharmacy Profile Note (Lidocaine Patch Remove*) 1 note PATCH OFF 2100 [facility] Last Admin: 12/01/16 20:19 Dose: 1 note Potassium Chloride (Klor Con Er Tab*) 20 meq PO ONCE ONE Stop: 12/02/16 17:01 Sertraline HCl (Zoloft*) 100 mg PO DAILY [facility] Last Admin: 12/02/16 09:24 Dose: 100 mg Vital Signs 12/01/16 12/01/16 12/01/16 16:00 19:41 20:00 Temperature 97.8 F Pulse Rate 84 Respiratory 18 16 Rate Blood Pressure 170/67 (mmHg) O2 Sat by Pulse 93 92 Oximetry 12/02/16 12/02/16 12/02/16 00:00 03:40 08:00 Temperature 98.8 F 98.7 F Pulse Rate 96 87 Respiratory 20 20 18 Rate Blood Pressure 151/73 151/77 (mmHg) O2 Sat by Pulse 90 95 Oximetry 12/02/16 12/02/16 08:02 11:59 Temperature 99.2 F 97.3 F Pulse Rate 87 86 Respiratory 16 16 Rate Blood Pressure 177/82 162/76 (mmHg) O2 Sat by Pulse 97 96 Oximetry Oxygen Devices in Use Now: None Appearance: 71 yo female laying in bed A+O x3 in NAD, appropriate Eyes: No Scleral Icterus, PERRLA Ears/Nose/Mouth/Throat: NL Teeth, Lips, Gums, Mucous Membranes Moist Neck: NL Appearance and Movements; NL JVP Respiratory: Symmetrical Chest Expansion and Respiratory Effort, Clear to Auscultation Cardiovascular: NL Sounds; No Murmurs; No JVD, RRR, No Edema Abdominal: NL Sounds; No Tenderness; No Distention Extremities: No Edema, No Clubbing, Cyanosis Skin: No Rash or Ulcers, No Nodules or Sclerosis Neurological: Alert and Oriented x 3, NL Sensation, NL Muscle Strength and Tone Lines/Tubes/Other Access: Clean, Dry and Intact Peripheral IV Nutrition: Taking PO's Result Diagrams: 12/02/16 05:33 12/02/16 05:33 Additional Lab and Data: Lab Results 11/30/16 11/30/16 11/30/16 Range/Units 01:25 01:25 01:25 WBC 13.7 H (3.5-10.8) 10^3/ul RBC 4.32 (4.0-5.4) 10^6/ul Hgb 14.0 (12.0-16.0) g/dl Hct 42 (35-47) % MCV 96 (80-97) fL MCH 33 H (27-31) pg MCHC 34 (31-36) g/dl RDW 13 (10.5-15) % Plt Count 426 (150-450) 10^3/ul MPV 8 (7.4-10.4) um3 Neut % (Auto) 74.8 (38-83) % Lymph % (Auto) 6.8 L (25-47) % [place] % (Auto) 17.8 H (1-9) % Eos % (Auto) 0 (0-6) % Baso % (Auto) 0.6 (0-2) % Absolute Neuts (auto) 10.2 H (1.5-7.7) 10^3/ul Absolute Lymphs (auto) 0.9 L (1.0-4.8) 10^3/ul Absolute Monos (auto) 2.4 H (0-0.8) 10^3/ul Absolute Eos (auto) 0 (0-0.6) 10^3/ul Absolute Basos (auto) 0.1 (0-0.2) 10^3/ul Absolute Nucleated RBC 0 10^3/ul Nucleated RBC % 0 INR (Anticoag Therapy) 0.95 (0.89-1.11) Sodium 137 (133-145) mmol/L Potassium 3.6 (3.5-5.0) mmol/L Chloride 96 L (101-111) mmol/L Carbon Dioxide 37 H (22-32) mmol/L Anion Gap 4 (2-11) mmol/L BUN 30 H (6-24) mg/dL Creatinine 1.03 H (0.51-0.95) mg/dL Est GFR ( Amer) 67.6 (>60) Est GFR (Non-Af Amer) 52.5 (>60) BUN/Creatinine Ratio 29.1 H (8-20) Glucose 124 H (70-100) mg/dL Lactic Acid (0.5-2.0) mmol/L Calcium 10.2 (8.6-10.3) mg/dL Total Bilirubin 0.60 (0.2-1.0) mg/dL AST 22 (13-39) U/L ALT 15 (7-52) U/L Alkaline Phosphatase 90 (34-104) U/L Total Creatine Kinase 258 H (10-223) U/L Troponin I 0.05 H* (<0.04) ng/mL C-Reactive Protein 312.91 H (< 5.00) mg/L Total Protein 7.2 (6.4-8.9) g/dL Albumin 3.8 (3.2-5.2) g/dL Globulin 3.4 (2-4) g/dL Albumin/Globulin Ratio 1.1 (1-3) Acetaminophen < 15 mcg/mL 11/30/16 Range/Units 01:25 WBC (3.5-10.8) 10^3/ul RBC (4.0-5.4) 10^6/ul Hgb (12.0-16.0) g/dl Hct (35-47) % MCV (80-97) fL MCH (27-31) pg MCHC (31-36) g/dl RDW (10.5-15) % Plt Count (150-450) 10^3/ul MPV (7.4-10.4) um3 Neut % (Auto) (38-83) % Lymph % (Auto) (25-47) % [place] % (Auto) (1-9) % Eos % (Auto) (0-6) % Baso % (Auto) (0-2) % Absolute Neuts (auto) (1.5-7.7) 10^3/ul Absolute Lymphs (auto) (1.0-4.8) 10^3/ul Absolute Monos (auto) (0-0.8) 10^3/ul Absolute Eos (auto) (0-0.6) 10^3/ul Absolute Basos (auto) (0-0.2) 10^3/ul Absolute Nucleated RBC 10^3/ul Nucleated RBC % INR (Anticoag Therapy) (0.89-1.11) Sodium (133-145) mmol/L Potassium (3.5-5.0) mmol/L Chloride (101-111) mmol/L Carbon Dioxide (22-32) mmol/L Anion Gap (2-11) mmol/L BUN (6-24) mg/dL Creatinine (0.51-0.95) mg/dL Est GFR ( Amer) (>60) Est GFR (Non-Af Amer) (>60) BUN/Creatinine Ratio (8-20) Glucose (70-100) mg/dL Lactic Acid 1.3 (0.5-2.0) mmol/L Calcium (8.6-10.3) mg/dL Total Bilirubin (0.2-1.0) mg/dL AST (13-39) U/L ALT (7-52) U/L Alkaline Phosphatase (34-104) U/L Total Creatine Kinase (10-223) U/L Troponin I (<0.04) ng/mL C-Reactive Protein (< 5.00) mg/L Total Protein (6.4-8.9) g/dL Albumin (3.2-5.2) g/dL Globulin (2-4) g/dL Albumin/Globulin Ratio (1-3) Acetaminophen mcg/mL Microbiology and Other Data: Microbiology 12/02/16 00:17 Legionella Urinary Antigen - Final Urine Negative Legionella Streptococcus pneumoniae Ag Screen - Final Negative S. pneumo Antigen Assess/Plan/Problems-Billing Assessment: Ms. Willoughby is a 71 yo female with a PMH of LLLB, HTN, hypothyroidism , tobacco abuse who was hospitalized at [facility] 10/25-10/30/16 for syncopal episode and T12 compression fx where she was DC'd to [facility] for rehab. Patient now returning after being found down at home on 11/29 - Patient Problems (1) Altered mental status Comment: - suspect narcotic/polypharmacy overdose, was given narcan 0.2 mg with good effect on 11/30. A+Ox3 since - Did have some Delirium which has seemed to have resolved. it is of concern that the pt is on Ambien, Trazodone, gabapentin, flexeril and norco. Pt currently not in any back pain from recent T12 fx and is refusing norco, gabapentin as well as trazodone and ambien for sleeping. - CT brain and MRI negative. Reviewed the MRI with Dr. Berry, neurologist, (side -consult) who states there is no acute infarct and only showing chronic lacunar infarctions. Dr. Berry does not think she has demyelinating disease. ammonia normal. CRP down trendiing, no obvious signs of infection. Recheck labs in am - PT/OT (2) Diarrhea Comment: - pt reports she was constipated 4-5 days ago and took a laxative, the next day she has had loose stools since, worse today. No abdominal pain or vomiting but reports nausea/decrease appetite. - send stool studies/cx (3) HTN (hypertension) Comment: continue home medications losartan and cardizem (4) Rhabdomyolysis Comment: - resolved (5) Tobacco abuse Comment: - nicotine replacement - smoking cessation (6) Hypothyroid Comment: TSH WNLs, continue synthroid (7) DVT prophylaxis Comment: HSQ (8) Full code status Status and Disposition: inpatient with Altered mental status thought to be secondary to polypharmacy opioid overdose.
[2016-12-02] MEDS ORDERED: Magnesium Sulfate IV* 3 GM in NS 0.9% 100 ML* 100 ML IVPB ONE (16:06)
[2016-12-02] MEDS: Cholecalciferol TAB* 1000 UNITS PO SCH (17:19)
[2016-12-02] MEDS: NS 0.9% 1000 ML* 1,000 ML IV SCH (17:20)
[2016-12-02] MEDS: Atorvastatin* 20 MG TAB PO SCH (17:20)
[2016-12-02] MEDS ORDERED: Melatonin (NF) ** ENTER STRENGTH IN LABEL DIRECTIONS PO SCH (21:00)
[2016-12-02] MEDS: Lactobacillus Acidophilu (GG)* 1 CAP CAP PO SCH (22:31)
[2016-12-02] MEDS: Lidocaine Patch REMOVE* 1 NOTE MISC PATCH OFF SCH (22:32)
[2016-12-02] MEDS ORDERED: Magnesium Sulfate 3 GM IV IVPB ONE ×2 (23:00)
[2016-12-03] MEDS: Heparin VIAL(*) 5000 UNITS/ML VIAL (FIVE THOUSAND) SUBCUT SCH ×2 (05:33→13:35)
[2016-12-03] MEDS: Levothyroxine TAB* 25 MCG TAB PO SCH (05:34)
[2016-12-03] MEDS: NS 0.9% 1000 ML* 1,000 ML IV SCH (05:37)
[2016-12-03 06:38] LABS: Hematocrit 37 % (35-47); Hemoglobin 12.7 g/dl (12.0-16.0); Mean Corpuscular HGB Conc 34 g/dl (31-36); Mean Corpuscular Hemoglobin 32 pg (27-31); Mean Corpuscular Volume 93 fL (80-97); Mean Platelet Volume 8 um3 (7.4-10.4); Red Blood Count 3.98 10^6/ul (4.0-5.4); Red Cell Distribution Width 13 % (10.5-15); White Blood Count 15.5 10^3/ul (3.5-10.8)
[2016-12-03 06:42] LABS: Add Diff/Slide Review? Slide Review Added; Comments Flag Yes
[2016-12-03 06:48] LABS: BUN/Creatinine Ratio 5.8 (8-20); Calcium 8.3 mg/dL (8.6-10.3); EGFR African American 148.7 (>60); EGFR Non-African American 115.6 (>60)
[2016-12-03 07:44] LABS: Eosinophils % 2 % (0-6); Immature Granulocytes 5 % (0-9); Metamyelocytes % 3 % (0-2); Myelocytes % 2 % (0-1); Neutrophil % 65 % (38-83)
[2016-12-03 07:45] LABS: Hypochromasia 1+
[2016-12-03 07:51] VITALS: BP 152/78
[2016-12-03] MEDS: Diltiazem CD CAP* 240 MG PO SCH (09:18)
[2016-12-03] MEDS: Sertraline* 100 MG TAB PO SCH (09:18)
[2016-12-03] MEDS: celeCOXIB CAP* 100 MG PO SCH (09:18)
[2016-12-03] MEDS: Famotidine TAB* 20 MG PO SCH (09:19)
[2016-12-03] MEDS: Lactobacillus Acidophilu (GG)* 1 CAP CAP PO SCH (09:19)
[2016-12-03] MEDS: Losartan TAB* 25 MG PO SCH (09:19)
[2016-12-03] MEDS: Cyanocobalamin TAB* 500 MCG PO SCH (09:20)
[2016-12-03] MEDS: Lidocaine PATCH 5%* 1 PATCH TRANSDERM SCH (09:20)
[2016-12-03] MEDS: Ascorbic Acid TAB* 500 MG PO SCH (09:20)
[2016-12-03 12:59] LABS: Magnesium 1.7 mg/dL (1.9-2.7)
[2016-12-03] MEDS ORDERED: Potassium Chlor TAB* 20 MEQ TAB.ER PO ONE (13:03)
[2016-12-03] MEDS ORDERED: Magnesium Sulfate 2 GM IV* 2 GM/50 ML BAG IVPB ONE (13:05)
--- NOTE | 2016-12-03 13:08 | DCNOTE ---
Subjective Date of Service: 12/03/16 Interval History: patient reports she feels that she is at her baseline except she has "very mild diarrhea much better than yesterday". She would like to go home. Denies any abdominal pain, tolerating PO well, no nausea. No fevers or chills. Patient denies back pain and reports she was having no pain. She wants to stop hr narcotics and at this time hold her Gabapentin. She would like to continue her trazadone as she has difficulty sleeping. Objective Active Medications: Acetaminophen/Hydrocodone Bitart ([place] 5-325 Tab*) 1 tab PO Q6H PRN PRN Reason: PAIN SCALE 6-10 Ascorbic Acid (Vitamin C Tab*) 1,000 mg PO DAILY [facility] Last Admin: 12/03/16 09:20 Dose: 1,000 mg Atorvastatin Calcium (Lipitor*) 20 mg PO QPM [facility] Last Admin: 12/02/16 17:20 Dose: 20 mg Celecoxib (Celebrex Cap*) 100 mg PO BID [facility] Last Admin: 12/03/16 09:18 Dose: 100 mg Cholecalciferol (Vitamin D Tab*) 1,000 units PO QPM [facility] Last Admin: 12/02/16 17:19 Dose: 1,000 units Cyanocobalamin (Vitamin B12 Tab*) 500 mcg PO DAILY [facility] Last Admin: 12/03/16 09:20 Dose: 500 mcg Diltiazem HCl (Cardizem Cd Cap*) 240 mg PO QAM [facility] Last Admin: 12/03/16 09:18 Dose: 240 mg Famotidine (Pepcid Tab*) 40 mg PO DAILY [facility] Last Admin: 12/03/16 09:19 Dose: 40 mg Heparin Sodium (Porcine) (Heparin Vial(*)) 5,000 units SUBCUT Q8HR [facility] Last Admin: 12/03/16 05:33 Dose: 5,000 units Sodium Chloride (Ns 0.9% 1000 Ml*) 1,000 mls @ 100 mls/hr IV PER RATE [facility] Last Admin: 12/03/16 05:37 Dose: 100 mls/hr Magnesium Sulfate (Magnesium Sulfate 2 Gm Iv*) 2 gm in 50 mls @ 50 mls/hr IVPB ONCE ONE Stop: 12/03/16 14:04 Lactobacillus Rhamnosus (Culturelle*) 1 cap PO BID [facility] Last Admin: 12/03/16 09:19 Dose: 1 cap Levothyroxine Sodium (Synthroid Tab*) 37.5 mcg PO 0600 [facility] Last Admin: 12/03/16 05:34 Dose: 37.5 mcg Lidocaine (Lidoderm 5% Patch*) 1 patch TRANSDERM DAILY [facility] Last Admin: 12/03/16 09:20 Dose: Not Given Losartan Potassium (Cozaar Tab*) 50 mg PO DAILY [facility] Last Admin: 12/03/16 09:19 Dose: 50 mg Melatonin (Melatonin (Nf)) 1 tab PO BEDTIME [facility] Last Admin: 12/02/16 22:32 Dose: Not Given Pharmacy Profile Note (Lidocaine Patch Remove*) 1 note PATCH OFF 2100 [facility] Last Admin: 12/02/16 22:32 Dose: Not Given Sertraline HCl (Zoloft*) 100 mg PO DAILY [facility] Last Admin: 12/03/16 09:18 Dose: 100 mg Vital Signs 12/02/16 12/02/16 12/02/16 15:40 17:28 19:32 Temperature 98.5 F Pulse Rate 89 Respiratory 18 18 Rate Blood Pressure 156/79 (mmHg) O2 Sat by Pulse 97 95 Oximetry 12/02/16 12/03/16 12/03/16 23:50 00:00 03:16 Temperature 98.8 F 97.9 F Pulse Rate 89 86 Respiratory 20 20 Rate Blood Pressure 145/77 153/77 (mmHg) O2 Sat by Pulse 96 95 95 Oximetry 12/03/16 12/03/16 12/03/16 03:37 07:35 07:45 Temperature 97.6 F 98.8 F Pulse Rate 85 87 Respiratory 20 16 16 Rate Blood Pressure 157/73 152/78 (mmHg) O2 Sat by Pulse 95 96 Oximetry Oxygen Devices in Use Now: None Appearance: 71 yo female A+Ox3 sitting up in bed in NAD Eyes: No Scleral Icterus, PERRLA Ears/Nose/Mouth/Throat: NL Teeth, Lips, Gums, Mucous Membranes Moist Neck: NL Appearance and Movements; NL JVP Respiratory: Symmetrical Chest Expansion and Respiratory Effort, Clear to Auscultation Result Diagrams: 12/03/16 06:24 12/03/16 06:24 Additional Lab and Data: Lab Results 11/30/16 11/30/16 11/30/16 Range/Units 01:25 01:25 01:25 WBC 13.7 H (3.5-10.8) 10^3/ul RBC 4.32 (4.0-5.4) 10^6/ul Hgb 14.0 (12.0-16.0) g/dl Hct 42 (35-47) % MCV 96 (80-97) fL MCH 33 H (27-31) pg MCHC 34 (31-36) g/dl RDW 13 (10.5-15) % Plt Count 426 (150-450) 10^3/ul MPV 8 (7.4-10.4) um3 Neut % (Auto) 74.8 (38-83) % Lymph % (Auto) 6.8 L (25-47) % [place] % (Auto) 17.8 H (1-9) % Eos % (Auto) 0 (0-6) % Baso % (Auto) 0.6 (0-2) % Absolute Neuts (auto) 10.2 H (1.5-7.7) 10^3/ul Absolute Lymphs (auto) 0.9 L (1.0-4.8) 10^3/ul Absolute Monos (auto) 2.4 H (0-0.8) 10^3/ul Absolute Eos (auto) 0 (0-0.6) 10^3/ul Absolute Basos (auto) 0.1 (0-0.2) 10^3/ul Absolute Nucleated RBC 0 10^3/ul Nucleated RBC % 0 INR (Anticoag Therapy) 0.95 (0.89-1.11) Sodium 137 (133-145) mmol/L Potassium 3.6 (3.5-5.0) mmol/L Chloride 96 L (101-111) mmol/L Carbon Dioxide 37 H (22-32) mmol/L Anion Gap 4 (2-11) mmol/L BUN 30 H (6-24) mg/dL Creatinine 1.03 H (0.51-0.95) mg/dL Est GFR ( Amer) 67.6 (>60) Est GFR (Non-Af Amer) 52.5 (>60) BUN/Creatinine Ratio 29.1 H (8-20) Glucose 124 H (70-100) mg/dL Lactic Acid (0.5-2.0) mmol/L Calcium 10.2 (8.6-10.3) mg/dL Total Bilirubin 0.60 (0.2-1.0) mg/dL AST 22 (13-39) U/L ALT 15 (7-52) U/L Alkaline Phosphatase 90 (34-104) U/L Total Creatine Kinase 258 H (10-223) U/L Troponin I 0.05 H* (<0.04) ng/mL C-Reactive Protein 312.91 H (< 5.00) mg/L Total Protein 7.2 (6.4-8.9) g/dL Albumin 3.8 (3.2-5.2) g/dL Globulin 3.4 (2-4) g/dL Albumin/Globulin Ratio 1.1 (1-3) Acetaminophen < 15 mcg/mL 11/30/16 Range/Units 01:25 WBC (3.5-10.8) 10^3/ul RBC (4.0-5.4) 10^6/ul Hgb (12.0-16.0) g/dl Hct (35-47) % MCV (80-97) fL MCH (27-31) pg MCHC (31-36) g/dl RDW (10.5-15) % Plt Count (150-450) 10^3/ul MPV (7.4-10.4) um3 Neut % (Auto) (38-83) % Lymph % (Auto) (25-47) % [place] % (Auto) (1-9) % Eos % (Auto) (0-6) % Baso % (Auto) (0-2) % Absolute Neuts (auto) (1.5-7.7) 10^3/ul Absolute Lymphs (auto) (1.0-4.8) 10^3/ul Absolute Monos (auto) (0-0.8) 10^3/ul Absolute Eos (auto) (0-0.6) 10^3/ul Absolute Basos (auto) (0-0.2) 10^3/ul Absolute Nucleated RBC 10^3/ul Nucleated RBC % INR (Anticoag Therapy) (0.89-1.11) Sodium (133-145) mmol/L Potassium (3.5-5.0) mmol/L Chloride (101-111) mmol/L Carbon Dioxide (22-32) mmol/L Anion Gap (2-11) mmol/L BUN (6-24) mg/dL Creatinine (0.51-0.95) mg/dL Est GFR ( Amer) (>60) Est GFR (Non-Af Amer) (>60) BUN/Creatinine Ratio (8-20) Glucose (70-100) mg/dL Lactic Acid 1.3 (0.5-2.0) mmol/L Calcium (8.6-10.3) mg/dL Total Bilirubin (0.2-1.0) mg/dL AST (13-39) U/L ALT (7-52) U/L Alkaline Phosphatase (34-104) U/L Total Creatine Kinase (10-223) U/L Troponin I (<0.04) ng/mL C-Reactive Protein (< 5.00) mg/L Total Protein (6.4-8.9) g/dL Albumin (3.2-5.2) g/dL Globulin (2-4) g/dL Albumin/Globulin Ratio (1-3) Acetaminophen mcg/mL Microbiology and Other Data: Microbiology 12/02/16 00:17 Legionella Urinary Antigen - Final Urine Negative Legionella Streptococcus pneumoniae Ag Screen - Final Negative S. pneumo Antigen Assess/Plan/Problems-Billing Assessment: Ms. Willoughby is a 71 yo female with a PMH of LLLB, HTN, hypothyroidism , tobacco abuse who was hospitalized at [facility] 10/25-10/30/16 for syncopal episode and T12 compression fx where she was DC'd to [facility] for rehab. Patient now returning after being found down at home on 11/29 - Patient Problems (1) Altered mental status Comment: - suspect narcotic/polypharmacy overdose, was given narcan 0.2 mg with good effect on 11/30. A+Ox3 since - Did have some Delirium which has resolved. it is of concern that the pt is on Ambien, Trazodone, gabapentin, flexeril and norco. Pt currently not in any back pain from recent T12 fx and is refusing norco, gabapentin. - CT brain and MRI negative. Reviewed the MRI with Dr. Berry, neurologist, (side -consult) who states there is no acute infarct and only showing chronic lacunar infarctions. Dr. Berry does not think she has demyelinating disease. ammonia normal. CRP down trendiing, no obvious signs of infection. Plan to continue celebrex for back pain only, and trazadone at night for insomnia. (2) Diarrhea Comment: - almost resolved. pt reports she was constipated 4-5 days ago and took a laxative, the next day she has had loose stools since, worse today. No abdominal pain, N/V. No imaging warrented -stool negative for occult blood (3) Leukocytosis Comment: - suspect reactive stress respone. no obvious signs of infection. (4) HTN (hypertension) Comment: continue home medications losartan and cardizem (5) Rhabdomyolysis Comment: - resolved (6) Tobacco abuse Comment: - pt reports she has quit (7) Hypothyroid Comment: TSH WNLs, continue synthroid (8) DVT prophylaxis Comment: HSQ (9) Full code status Status and Disposition: inpatient with Altered mental status thought to be secondary to polypharmacy opioid overdose. Stable for DC to home today
--- NOTE | 2016-12-04 06:44 | DS ---
DISCHARGE SUMMARY: DATE OF ADMISSION: 11/30/16 DATE OF DISCHARGE: 12/03/16 ATTENDING PHYSICIAN: Dr. Rhodes *(report dictated by Azul Felix, CARINE). PRIMARY CARE PROVIDER: Dr. Swenson. DISCHARGE DIAGNOSES: 1. Opiate overdose/polypharmacy. 2. Diarrhea. 3. Delirium. 4. Rhabdomyolysis. 5. Electrolyte abnormalities. 6. Mild rhabdomyolysis. SECONDARY DIAGNOSES: 1. History of tobacco abuse. 2. Recent T12 fracture. 3. Compression fracture. 4. History of basal cell carcinoma. 5. Left bundle branch block. 6. Hiatal hernia. 7. Hypertension. 8. GERD. 9. Hypothyroidism. 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 11. Sjogren's. 12. History of a lung nodule. 13. Left lower lobe emphysema. HISTORY OF PRESENT ILLNESS AND HOSPITAL COURSE: Please see history and physical by Dr. Pete for full admission details, but in summary, this is a 71- year-old female who had a hospitalization last month at [facility] where she had a fall and suffered a T12 fracture. She then was transferred to [facility] where she underwent subacute rehab and has been home a couple of weeks. The patient presented to the emergency department on 11/30/16 with altered mental status. Her son called the police and they broke into her apartment and she was found on the floor quite confused and lethargic, and was brought to the emergency department for further evaluation. She was known to the hospitalist service. On admission, she was noted to have a mild leukocytosis of 13.7, a troponin of 0.05, total creatinine kinase of 258, and a creatinine of 1.03. She underwent a brain CT which was negative for intracranial mass or acute infarct. She underwent a cervical spine CT, which showed no fracture. The patient was given Narcan 0.2 mg and she responded well, awaking and less lethargic. It appears that her lethargy and altered mental status was from opiate overdose/polypharmacy. The patient is noted to take multiple sedating medications, especially new medications in the last month that have been added on since her T12 compression fracture. She is known to take trazodone and/or Ambien at night as well as gabapentin, [place], and possibly Flexeril. The patient had good effect to the Narcan. However, she did continue to have intermittent confusion and delirium for approximately a day. The patient denied any back pain throughout her hospitalization and was quite surprised that her back pain has seemed to resolve. She does remember last week she noticed that she has not been having as much pain; however, she continued to take her pain medications as she was anticipating being in a lot of pain. Per her son, who stayed with her for several days, 1 day prior to her being found, he reported that she noted she was having some hallucinations but otherwise seemed well. She had no signs of infection. The patient was seen by Physical Therapy. She has been doing well without pain, ambulating with a walker, and occasionally independently by herself. It was felt she could go home safely with her walker and home physical therapy. In regards to the patient's diarrhea, the patient reported that she was constipated 1 day prior to coming to the hospital and took a laxative. The next day, she had a large loose bowel movement and then was hospitalized and continued to have loose stools. I suspect that initially her diarrhea was from the laxatives and then possibly from detoxing from the narcotics as the patient did refuse to have any narcotics throughout her hospitalization as she "wanted to be off all of them" and was not having any back pain. The patient's diarrhea greatly improved last night and today she reports that she continues to have small amounts of diarrhea, but very little and feels like it is resolving. She did have to have her electrolytes replaced multiple times throughout hospitalization and has been sent home on magnesium and potassium supplementation with plan to check labs next week. In regards to the patient's elevated troponins, this was thought to be secondary to demand ischemia. She had no EKG 7changes. The patient did undergo a brain MRI, which read "no MR evidence of acute territorial infarction. " Findings are most consistent with chronic microvascular disease and right greater than left chronic infarcts. Demyelinating disease can have this appearance, but is considered less likely." I contacted the neurologist, Dr. Berry, who reviewed the patient's MRI imaging, who believes this just to be chronic changes. The patient had negative blood cultures. Her stool cultures are pending at the time of dictation. The patient is noted throughout hospitalization to have a leukocytosis. However, looking back at her previous hospitalizations, it appears she has mild stress response and again I have a low suspicion for infection. She has remained afebrile throughout her hospitalization with one noted low-grade fever of 100.5 in the beginning of her hospitalization. Today on discharge, the patient is alert and oriented x3. She has no back pain. She was ambulating well independently with her walker. Her diarrhea has almost resolved and she is stable for discharge home. In regards to the patient's elevated troponins, this was found to be secondary to demand ischemia. She had no EKG changes. DISCHARGE MEDICATIONS: 1. Trazodone 50 mg p.o. bedtime p.r.n. 2. Celebrex 100 mg p.o. b.i.d. 3. Zoloft 100 mg p.o. daily. 4. Protonix 40 mg p.o. daily. 5. Cozaar 50 mg p.o. daily. 6. Lidocaine patch 1 patch transderm daily. 7. Synthroid 1.25 tabs p.o. q.a.m. 8. Hydrochlorothiazide 25 mg p.o. q.a.m. 9. Gabapentin 600 mg p.o. t.i.d. 10. Flaxseed oil 1300 mg p.o. daily. 11. Pepcid 40 mg p.o. daily. 12. Cardizem 240 mg p.o. q.a.m. 13. Vitamin B12 500 mcg p.o. daily. 14. Cod liver oil one cap p.o. daily. 15. Vitamin D 1000 units p.o. q.p.m. 16. Flonase 200 mg nares daily. 17. Lipitor 20 mg p.o. q.p.m. 18. Vitamin C 1000 mg p.o. daily. 19. Potassium chloride 20 mEq p.o. b.i.d. 20. Melatonin 1 tab p.o. at bedtime. 21. Magnesium oxide 400 mg p.o. daily. 22. Probiotic 1 cap p.o. b.i.d. DISCHARGE PLAN: 1. The patient is to be discharged to home. Her sister plans on staying with her for at least a week. 2. Follow up with Dr. Swenson, 12/07/16 at 9:25 p.m. The patient was going to discuss with Dr. Swenson about possibly cutting down or discontinuing her gabapentin. I suggested to the patient that she could stop her gabapentin at this time; however, she wants to discuss it with her primary. Check BMP next week with the results to primary care provider. TIME SPENT: Approximately 60 minutes were spent on this discharge. AZUL FELIX NP CC: Dr. Swenson* [id number]/CPS #: [id number] DONY
== END 2016-12-03 15:44 | disposition home health service (06) | DRG 918 ==
LOC: ED 01:09 → MEDTELE 04:52
PROVIDERS: ADMIT Internal Medicine; ATTEND Hospitalist
DX: T40.601A Poisoning by unspecified narcotics, accidental (unintentional), initial encounter (principal); M62.82 Rhabdomyolysis; I24.8 Other forms of acute ischemic heart disease; J43.9 Emphysema, unspecified; M35.00 Sjogren syndrome, unspecified; I44.7 Left bundle-branch block, unspecified; Z91.81 History of falling; Z88.8 Allergy status to other drugs, medicaments and biological substances; Z91.048 Other nonmedicinal substance allergy status; E06.3 Autoimmune thyroiditis; E78.00 Pure hypercholesterolemia, unspecified; I10 Essential (primary) hypertension; K21.9 Gastro-esophageal reflux disease without esophagitis; Z98.1 Arthrodesis status; M13.852 Other specified arthritis, left hip; M13.851 Other specified arthritis, right hip; Z98.42 Cataract extraction status, left eye; Z98.41 Cataract extraction status, right eye; F41.9 Anxiety disorder, unspecified; Z98.51 Tubal ligation status; F17.210 Nicotine dependence, cigarettes, uncomplicated; Z85.828 Personal history of other malignant neoplasm of skin; E03.9 Hypothyroidism, unspecified; Z80.8 Family history of malignant neoplasm of other organs or systems; Z82.3 Family history of stroke; D72.829 Elevated white blood cell count, unspecified; Z86.73 Personal history of transient ischemic attack (TIA), and cerebral infarction without residual deficits; R19.7 Diarrhea, unspecified; R41.0 Disorientation, unspecified; Z87.81 Personal history of (healed) traumatic fracture; K44.9 Diaphragmatic hernia without obstruction or gangrene; T50.905A Adverse effect of unspecified drugs, medicaments and biological substances, initial encounter; F43.9 Reaction to severe stress, unspecified
CPT/HCPCS: 36415; 36600; 70450; 70551; 71010; 71020; 72125; 80048; 80053; 80307; 80329; 81003; 81015; 82140; 82272; 82550; 82803; 83605; 83735; 84145; 84443; 84484; 85025; 85610; 86140; 87040; 87045; 87046; 87449; 87899; 93005; 93306; 94760; 99406; A9270-GY; G0480; J0696; J1644; J2310; J3475; J3480

== ENCOUNTER 2017-06-16 16:49 | Emergency (ER) | payer MEDICARE ==
[2017-06-16 17:11] VITALS: BP 113/60
--- NOTE | 2017-06-16 17:20 | UC ---
Daljit Miller Rebecca, scribed for Susan Rhodes MD on 06/16/17 at 1718 . Dizzy HPI HPI Summary: Pt is a 71 y/o F with complex med hx including htn, sjorgens syndrome, chronic pain, hld, and tobacco use who presents to [facility] c/o dizziness and generalized weakness. Sx began today upon waking up. Pt reports has been feeling dizzy and has been banging into avila, holding on to furniture for balance. Pt states she fell today while getting into car - landed on sacrum - no strike head, no loc, no injury. Pt denies ROSAS, vision changes, cp, sob, abd pain. Denies n/v. No fevers, chills, rash. Pt states scheduled to have an MRI brain tomorrow as she has been having hallucinations. Pt states she came to lab this evening for blood work - when she revealed how she felt today they recommended and she agreed to come to urgent care for further evaluation. Additionally c/o worsening edema in bilateral lower leg. Pt sister states edema has progressed this week. No prior similar episodes of symptoms. Is not on blood thinners though she was previously taking ASA. Reports an adverse reaction to Vicodin. Originally presented today to have blood work done as she has an Brain MRI scheduled for tomorrow to evaluate hallucinations. No PMHx [place], stroke (mother). FHx stroke (mother). SHx 1 PPD. Pt's medicaitons reviewed at this visit - History Of Current Complaint Chief Complaint: UCDizziness Stated Complaint: DIZZY,SWOLLEN ANKLES,FALL-TAILBONE INJ Time Seen by Provider: 06/16/17 17:04 Hx Obtained From: Patient Onset/Duration: Sudden Onset, Still Present Pain Intensity: 2 Pain Scale Used: 0-10 Numeric Character: Weak, Dizzy Aggravating Factor(s): Nothing Alleviating Factor(s): Nothing Associated Signs And Symptoms: Negative: Nausea, Chest Pain, SOB - Risk Factors Cardiac Risk Factors: Hypertension, Smoking, Elevated Lipids, Family History CVA Risk Factor: Hypertension, Smoking - Allergies/Home Medications Allergies/Adverse Reactions: Allergies Allergy/AdvReac Type Severity Reaction Status Date / Time Acetaminophen [From Vicodin] Allergy Nausea Verified 04/14/17 15:35 Bupropion [From Wellbutrin] Allergy Altered Verified 04/14/17 15:34 Mental Status Hydrocodone [From Vicodin] Allergy Nausea Verified 04/14/17 15:35 Iodine Allergy KHOURY SKIN Verified 04/14/17 15:34 decongestants Allergy Intermediate hyperactivi Uncoded 04/14/17 15:34 ty anesthesia Allergy states Uncoded 04/14/17 15:34 becomes violentlyl ill with vomiting. ENVIRONMENTAL Allergy GI Upset Uncoded 04/14/17 15:34 PMH/Surg Hx/FS Hx/Imm Hx - Additional Past Medical History Additional PMH: Hx compression fractures. No PMHx [place] and stroke. Previously Healthy: No Endocrine History: Hypothyroidism Cardiovascular History: Hypertension Respiratory History: COPD GI/ History: Gastroesophageal Reflux - Surgical History Surgical History: Yes Surgery Procedure, Year, and Place: CSP FUSED 1998 [place]. RIGHT LEG SURGERY HARDWARE REMOVED 1999 [place]. cataracts - Family History Known Family History: Positive: Hypertension, Other - GERD, stroke (mother) - Social History Occupation: Retired Alcohol Use: None Substance Use Type: Marijuana Smoking Status (MU): Heavy Every Day Tobacco Smoker Type: Cigarettes Amount Used/How Often: 3/4 PACK A DAY Length of Time of Smoking/Using Tobacco: 50 YRS Have You Smoked in the Last Year: Yes Household Exposure Type: Cigarettes - Immunization History Most Recent Influenza Vaccination: fall 2015 Most Recent Tetanus Shot: unknown Most Recent Pneumonia Vaccination: 2013 Review of Systems Constitutional: Negative Skin: Negative Eyes: Negative ENT: Negative Respiratory: Negative Cardiovascular: Negative Gastrointestinal: Negative Genitourinary: Negative Motor: Negative Neurovascular: Negative Musculoskeletal: Edema, Other: - Tailbone pain secondary to recent fall Neurological: Weakness - generalized, Other - Dizziness Psychological: Negative All Other Systems Reviewed And Are Negative: Yes Physical Exam Triage Information Reviewed: Yes Appearance: Well-Appearing, No Pain Distress, Well-Nourished Vital Signs: Initial Vital Signs Temp 98.7 F 06/16/17 17:01 Pulse 84 06/16/17 17:01 Resp 18 06/16/17 17:01 BP 113/60 06/16/17 17:01 Pulse Ox 96 06/16/17 17:01 Vital Signs Reviewed: Yes Eye Exam: Normal Eyes: Positive: Conjunctiva Clear, Other: - no nystagmus No photophobia ARLEEN, EOM intact and ful ENT Exam: Normal ENT: Positive: Hearing grossly normal, Pharynx normal, TMs normal Dental Exam: Normal Neck exam: Normal Neck: Positive: Supple, Nontender, No Lymphadenopathy Respiratory Exam: Normal Respiratory: Positive: Chest non-tender, Lungs clear, Normal breath sounds, No respiratory distress, No accessory muscle use Cardiovascular Exam: Normal Cardiovascular: Positive: RRR, No Murmur, Pulses Normal, Other: - 2+ bilateral LE edema Abdominal Exam: Normal Abdomen Description: Positive: Nontender, No Organomegaly, Soft Bowel Sounds: Positive: Present Musculoskeletal Exam: Normal Musculoskeletal: Positive: Strength Intact, ROM Intact Neurological Exam: Normal Neurological: Positive: Alert, Muscle Tone Normal, Fatigued, Other: - CN 2- 12 intact - no nystagmus + SLE b/l No dysarthria, no word finiding difficulty Psychological Exam: Normal Skin Exam: Normal Diagnostics - EKG Cardiac Rate: NL - 86 bpm Cardiac Rhythm: LBBB: Old - No acute changes from 11/2016 Ectopy: None Dizzy Course/Dx - Course Course Of Treatment: Pt presents with reports of balance difficulty, dizziness, and imbalance with walking since waking this morning. Pt denies any pain except sacral pain s/p fall. Pt scheduled for MRI tomorrow second to recent hallucinations. Recommend pt to ED for further evaluation - likely to include radiologic imaging, labs. Pt's EKG without acute changes fm 11/30/16. pt and sister comfortable and in agreement with plan. will transfer by EMS. place IV. check BG - Differential Dx/Diagnosis Provider Diagnoses: dizziness, fall, unsteady gait Discharge - Discharge Plan Condition: Good Disposition: TRANS HIGHER LVL OF CARE FAC Referrals: Nikolas NARAYAN,Jennifer Perry [Primary Care Provider] - The documentation as recorded by the Daljit mcdonald Rebecca accurately reflects the service I personally performed and the decisions made by Carmelo giraldo Laura, MD.
== END 2017-06-16 18:03 | disposition short-term general hospital (02) ==
LOC: UCEAST 16:49
DX: R42 Dizziness and giddiness (principal); R26.9 Unspecified abnormalities of gait and mobility; F17.210 Nicotine dependence, cigarettes, uncomplicated; I10 Essential (primary) hypertension; M35.00 Sjogren syndrome, unspecified; G89.29 Other chronic pain; W19.XXXA Unspecified fall, initial encounter; Y92.9 Unspecified place or not applicable; E78.5 Hyperlipidemia, unspecified; J44.9 Chronic obstructive pulmonary disease, unspecified; K21.9 Gastro-esophageal reflux disease without esophagitis; I44.7 Left bundle-branch block, unspecified
CPT/HCPCS: 93005; 99213; G0463

== ENCOUNTER 2017-06-16 18:17 | Emergency (ER) | payer MEDICARE ==
--- NOTE | 2017-06-16 20:07 | RAD ---
INDICATION: Dizziness COMPARISON: Chest x-ray December 01, 2016; MRI lumbar spine April 20, 2017 TECHNIQUE: PA and lateral dual-energy views were obtained. FINDINGS: Bones/Soft Tissues: There are no acute bony findings. There is a chronic T12 compression deformity with resultant focal kyphosis Cardiomediastinal: The cardiomediastinal silhouette is normal. Lungs: There are no infiltrates. There is mild hyperinflation and mild chronic interstitial change. The findings are stable. Pleura: There are no pleural effusions. Other: None IMPRESSION: NO ACTIVE DISEASE.
--- NOTE | 2017-06-16 20:14 | RAD ---
INDICATION: Dizziness COMPARISON: CT brain November 30, 2016 TECHNIQUE: Noncontrast axial source images were acquired from the skull base to the vertex. FINDINGS: Ventricles/sulci: There is age-related cortical atrophy with compensatory dilatation of the CSF spaces. Brain parenchyma: There is periventricular and subcortical white matter change compatible with chronic ischemia. Intracranial hemorrhage:None. Extra-axial spaces: There are no abnormal extra axial fluid collections or evidence of extra-axial mass. Calvarium: There is no calvarial fracture or other calvarial abnormality. Scalp: There is no evidence of scalp or extracalvarial soft tissue abnormality. Paranasal sinuses/mastoid: The paranasal sinuses and mastoid air cells are clear. Other: None. IMPRESSION: CORTICAL ATROPHY WITH CHRONIC MICROVASCULAR ISCHEMIC CHANGES. NO ACUTE FINDINGS.
[2017-06-16 20:36] LABS: Hematocrit 41 % (35-47); Hemoglobin 13.7 g/dl (12.0-16.0); Mean Corpuscular HGB Conc 33 g/dl (31-36); Mean Corpuscular Hemoglobin 32 pg (27-31); Mean Corpuscular Volume 97 fL (80-97); Mean Platelet Volume 8 um3 (7.4-10.4); Red Blood Count 4.25 10^6/ul (4.0-5.4); Red Cell Distribution Width 13 % (10.5-15); White Blood Count 12.3 10^3/ul (3.5-10.8)
--- NOTE | 2017-06-16 20:56 | ED ---
Karlene Miller Alfonso, scribed for Wicho Hussein MD on 06/16/17 at 1938 . Complex/Multi-Sys Presentation - HPI Summary HPI Summary: This patient is a 71 year old F BIBA to [facility] from [facility] accompanied by sister with a chief complaint of unsteady gait since a few months ago. She falls over to both sides and having to hold onto avila. The CC is worse today and episodes that last a few hours. Symptoms aggravated by standing and alleviated by nothing. Pt reports calf swelling. She reports MRI scheduled for tomorrow for vivid hallucinations. - History Of Current Complaint Chief Complaint: EDGeneral Time Seen by Provider: 06/16/17 19:28 Hx Obtained From: Patient Onset/Duration: Lasting Weeks - Months, Worse Since Timing: Intermittent, Lasting:, Hours - a few Severity Currently: Moderate Severity Initially: Moderate Aggravating Factor(s): Standing. Alleviating Factor(s): Nothing. Associated Signs And Symptoms: Positive: Other - Positive calf swelling and hallucinations - Allergies/Home Medications Allergies/Adverse Reactions: Allergies Allergy/AdvReac Type Severity Reaction Status Date / Time Acetaminophen [From Vicodin] Allergy Nausea Verified 06/16/17 18:36 Bupropion [From Wellbutrin] Allergy Altered Verified 06/16/17 18:36 Mental Status Hydrocodone [From Vicodin] Allergy Nausea Verified 06/16/17 18:36 Iodine Allergy KHOURY SKIN Verified 06/16/17 18:36 decongestants Allergy Intermediate hyperactivi Uncoded 06/16/17 18:36 ty anesthesia Allergy states Uncoded 06/16/17 18:36 becomes violentlyl ill with vomiting. ENVIRONMENTAL Allergy GI Upset Uncoded 06/16/17 18:36 PMH/Surg Hx/FS Hx/Imm Hx Endocrine/Hematology History: Denies: Hx Diabetes, Hx Thyroid Disease Cardiovascular History: Reports: Hx Hypercholesterolemia, Hx Hypertension, Other Cardiovascular Problems/Disorders - LBBB- BENIGN Denies: Hx Pacemaker/ICD Respiratory History: Denies: Hx Asthma, Hx Chronic Obstructive Pulmonary Disease (COPD) GI History: Reports: Hx Gastroesophageal Reflux Disease, Hx Hiatal Hernia, Other GI Disorders - DIVERTICULITIS Denies: Hx Ulcer History: Denies: Hx Renal Disease Musculoskeletal History: Reports: Hx Arthritis - BACK, HIPS, Other Musculoskeletal History - DDD, S/P CERVICAL FUSION, CERVICAL SPINAL STENOSIS Sensory History: Reports: Hx Cataracts - LILY, Hx Contacts or Glasses - GLASSES Denies: Hx Hearing Aid Opthamlomology History: Reports: Hx Cataracts - LILY, Hx Contacts or Glasses - GLASSES Psychiatric History: Reports: Hx Anxiety - R/T TMJ Denies: Hx Panic Disorder - Cancer History Cancer Type, Location and Year: SKIN CARCINOMA Hx Chemotherapy: No Hx Radiation Therapy: No - Surgical History Surgery Procedure, Year, and Place: CSP FUSED 1998 [place]. RIGHT LEG SURGERY HARDWARE REMOVED 1999 [place]. cataracts Hx Anesthesia Reactions: Yes - AGITATION Infectious Disease History: No Infectious Disease History: Denies: Hx Clostridium Difficile, Hx Hepatitis, Hx Human Immunodeficiency Virus (HIV), Hx of Known/Suspected MRSA, Hx Known/Suspected VRE, Hx Known/ Suspected VRSA, History Other Infectious Disease, Traveled Outside the in Last 30 Days - Family History Known Family History: Positive: Hypertension, Other - GERD, stroke (mother) - Social History Alcohol Use: None Hx Substance Use: No Substance Use Type: Reports: Marijuana Hx Tobacco Use: Yes Smoking Status (MU): Heavy Every Day Tobacco Smoker Type: Cigarettes Amount Used/How Often: 3/4 PACK A DAY Length of Time of Smoking/Using Tobacco: 50 YRS Have You Smoked in the Last Year: Yes Review of Systems Negative: Fever Positive: Edema - Positive calf swelling, Other - Positive unsteady gait Neurological: Other - hallucinations All Other Systems Reviewed And Are Negative: Yes Physical Exam Triage Information Reviewed: Yes Vital Signs On Initial Exam: Initial Vitals Temp Pulse Resp BP Pulse Ox 97.8 F 81 20 145/74 95 06/16/17 18:24 06/16/17 18:24 06/16/17 18:24 06/16/17 18:24 06/16/17 18:24 Vital Signs Reviewed: Yes Appearance: Positive: Well-Appearing, No Pain Distress Skin: Positive: Warm Head/Face: Positive: Normal Head/Face Inspection Eyes: Positive: EOMI, ARLEEN ENT: Positive: Hearing grossly normal Neck: Positive: Supple Respiratory/Lung Sounds: Positive: Breath Sounds Present Cardiovascular: Positive: RRR Abdomen Description: Positive: Nontender, Soft Bowel Sounds: Positive: Present Musculoskeletal: Positive: Strength/ROM Intact Neurological: Positive: Sensory/Motor Intact, Alert, Oriented to Person Place, Time, Normal Gait Psychiatric: Positive: Affect/Mood Appropriate Diagnostics - Vital Signs Vital Signs Temp Pulse Resp BP Pulse Ox 06/16/17 18:57 81 8 93 06/16/17 18:30 97.8 F 82 18 140/70 95 06/16/17 18:24 97.8 F 81 20 145/74 95 - Laboratory Lab Results: Lab Results 06/16/17 Range/Units 20:30 WBC 12.3 H (3.5-10.8) 10^3/ul RBC 4.25 (4.0-5.4) 10^6/ul Hgb 13.7 (12.0-16.0) g/dl Hct 41 (35-47) % MCV 97 (80-97) fL MCH 32 H (27-31) pg MCHC 33 (31-36) g/dl RDW 13 (10.5-15) % Plt Count 465 H (150-450) 10^3/ul MPV 8 (7.4-10.4) um3 Neut % (Auto) 87.5 H (38-83) % Lymph % (Auto) 8.5 L (25-47) % Tift % (Auto) 3.7 (1-9) % Eos % (Auto) 0 (0-6) % Baso % (Auto) 0.3 (0-2) % Absolute Neuts (auto) 10.7 H (1.5-7.7) 10^3/ul Absolute Lymphs (auto) 1.0 (1.0-4.8) 10^3/ul Absolute Monos (auto) 0.5 (0-0.8) 10^3/ul Absolute Eos (auto) 0 (0-0.6) 10^3/ul Absolute Basos (auto) 0 (0-0.2) 10^3/ul Absolute Nucleated RBC 0 10^3/ul Nucleated RBC % 0 Result Diagrams: 06/16/17 20:30 06/16/17 20:30 Lab Statement: Any lab studies that have been ordered have been reviewed, and results considered in the medical decision making process. - Radiology CXR Radiology Interpretation Completed By: Radiologist - No active disease - CT brain CT Interpretation Completed By: Radiologist - CORTICAL ATROPHY WITH CHRONIC MICROVASCULAR ISCHEMIC CHANGES. NO ACUTE FINDINGS. - EKG 2107 Cardiac Rate: NL - BPM 86 EKG Rhythm: Sinus Rhythm EKG Interpretation: LBBB Re-Evaluation - Re-Evaluation First Eval Change: Improved - pt non focal has mri scheduled for tomorrow, will d/c f/u pcp Complex Multi-Symp Course/Dx Assessment/Plan: 71 year old F BIBA to [facility] from [facility] accompanied by sister with a chief complaint of unsteady gait since a few months ago. She falls over to both sides and having to hold onto avila. The CC is worse today and episodes that last a few hours. Symptoms aggravated by standing and alleviated by nothing. Pt reports calf swelling. She reports MRI scheduled for tomorrow for vivid hallucinations. CXR reveals no active disease. CT brain reveals CORTICAL ATROPHY WITH CHRONIC MICROVASCULAR ISCHEMIC CHANGES. NO ACUTE FINDINGS. EKG reveals LBBB and NSR. Patient will be discharged with follow up from PCP. Pt is agreeable with this plan. - Diagnoses Provider Diagnoses: Dizziness Discharge - Discharge Plan Condition: Stable Disposition: HOME Patient Education Materials: Dizziness (ED) Referrals: Nikolas NARAYAN,Jennifer Perry [Primary Care Provider] - 3 Days The documentation as recorded by the Karlene mcdonald Alfonso accurately reflects the service I personally performed and the decisions made by me, Wicho Hussein MD.
[2017-06-16 20:57] LABS: Urine Bacteria 1+ (Absent); Urine Bilirubin Negative (Negative); Urine Glucose Negative (Negative); Urine Nitrite Negative (Negative)
[2017-06-16 21:01] LABS: BUN/Creatinine Ratio 17.7 (8-20); Calcium 9.4 mg/dL (8.6-10.3); EGFR African American 44.8 (>60); EGFR Non-African American 34.8 (>60); Globulin 3.4 g/dL (2-4); Magnesium 1.8 mg/dL (1.9-2.7); Total Bilirubin 0.3 mg/dL (0.2-1.0); Total Protein 7.4 g/dL (6.4-8.9)
[2017-06-16] MEDS ORDERED: Albuterol/Ipratropium NEB.SOL* Albuterol 2.5 MG/Ipratropium 0.5 MG 3 ML INH ONE (21:15)
[2017-06-16 22:33] VITALS: BP 116/51
== END 2017-06-16 22:33 | disposition home or self-care (01) ==
LOC: ED 18:17
DX: R42 Dizziness and giddiness (principal); R60.9 Edema, unspecified; F17.210 Nicotine dependence, cigarettes, uncomplicated
CPT/HCPCS: 36415; 70450; 71020; 80053; 81003; 81015; 83605; 83735; 85025; 87086; 93005; 94640; 99284; A9270-GY

== ENCOUNTER 2017-06-23 10:44 | Inpatient (IN) | payer MEDICARE ==
[2017-06-23] MEDS ORDERED: Ibuprofen TAB* 600 MG PO ONE (11:16)
[2017-06-23] MEDS ORDERED: NS 0.9% 1000 ML* 1,000 ML IV SCH (11:30)
--- NOTE | 2017-06-23 11:54 | RAD ---
INDICATION: Weakness COMPARISON: June 16, 2017 TECHNIQUE: An AP portable view obtained at 1130 hours is submitted. FINDINGS: Bones/Soft Tissues: There are no acute bony findings. Cardiomediastinal: The cardiomediastinal silhouette is normal. Lungs: There are no infiltrates. Pleura: There are no pleural effusions. Other: None IMPRESSION: NO ACTIVE DISEASE.
--- NOTE | 2017-06-23 12:56 | RAD ---
INDICATION: Fall. Right hip pain. COMPARISON: CT pelvis October 25, 2016 TECHNIQUE: Noncontrast axial scans the pelvis were obtained with coronal and sagittal reconstructions FINDINGS: There are no acute osseous findings. Hips articulate normally. The superficial soft tissue elements about the pelvis and hips are unremarkable. Evaluation the intraperitoneal structures reveals moderate diverticula of the sigmoid colon. There is a 4.5 cm cystic structure left adnexa most consistent with ovarian cyst. This measures 11 Hounsfield units. The appearance unchanged. There is no free fluid or adenopathy within the visualized pelvis IMPRESSION: NO ACUTE BONY FINDINGS. NO INTERVAL CHANGES.
--- NOTE | 2017-06-23 12:57 | RAD ---
Indication: Low back pain. CT of the lumbar spine was obtained in the axial plane. Sagittal and coronal reconstructed images were obtained. There is vertebral plana of the T12 vertebra. This appears to have progressed since previous exam of October 25, 2016. There is mild retropulsion of the fracture fragments with narrowing of the canal to approximately 6.6 mm. Vacuum disc phenomenon is noted. The remainder of the vertebral bodies demonstrates no fracture. At L2-L3 broad-based protrusion flattens the thecal sac. No foraminal stenosis is noted. At L3-L4 and L4-L5 broad-based protrusion is noted. Nerve root sleeves cysts are noted at S1-S2 level. IMPRESSION: Progressive fracture of the T12 vertebra with vertebral plana. Further canal compromise is noted with the AP dimension of the canal measuring 6 mm. Nerve root sleeve cysts are noted at the S1 and S2 levels.
[2017-06-23 14:02] LABS: Hematocrit 46 % (35-47); Mean Corpuscular HGB Conc 33 g/dl (31-36); Mean Corpuscular Hemoglobin 32 pg (27-31); Mean Corpuscular Volume 96 fL (80-97); Mean Platelet Volume 8 um3 (7.4-10.4); Red Blood Count 4.73 10^6/ul (4.0-5.4); Red Cell Distribution Width 14 % (10.5-15)
[2017-06-23 14:11] LABS: ALT 14 U/L (7-52); AST 13 U/L (13-39); Albumin 3.5 g/dL (3.2-5.2); Alkaline Phosphatase 81 U/L (34-104); Anion Gap 8 mmol/L (2-11); BUN/Creatinine Ratio 29.2 (8-20); Blood Urea Nitrogen 21 mg/dL (6-24); C Reactive Protein 59.25 mg/L (< 5.00); CO2 Carbon Dioxide 32 mmol/L (22-32); Calcium 9.7 mg/dL (8.6-10.3); Chloride 99 mmol/L (101-111); Creatine Kinase 27 U/L (10-223); EGFR African American 102.1 (>60); EGFR Non-African American 79.4 (>60); Globulin 3.5 g/dL (2-4); Glucose 101 mg/dL (70-100); Lipase 28 U/L (11.0-82.0); Magnesium 1.7 mg/dL (1.9-2.7); Sodium 139 mmol/L (133-145)
[2017-06-23 14:14] LABS: Troponin I 0.03 ng/mL (<0.04)
[2017-06-23 14:16] LABS: B Type Natriuretic Peptide 339 pg/mL
[2017-06-23 14:32] LABS: Acetaminophen < 15 mcg/mL; Alcohol < 10 mg/dL (<10)
[2017-06-23 14:34] LABS: Ammonia 34 mol/L (16-53)
[2017-06-23] MEDS ORDERED: Potassium Chlor TAB* 20 MEQ TAB.ER PO ONE (15:09)
--- NOTE | 2017-06-23 15:22 | ED ---
Higinio Miller Angela, scribed for Isra Ahumada MD on 06/23/17 at 1130 . Adult Trauma - HPI Summary HPI Summary: 71 y/o female presents to the ED c/o worsening pain in both buttocks s/p fall x2 days. Pt reports she landed on her tailbone and it has become difficult to get up secondary to pain. Pt notes yesterday she couldn't walk yesterday and slept sitting up due to pain. She describes a "stabbing" pain. She states that her pain is alleviated with rest and aggravated with movement. Pt has not taken any pain medication. She states that in October 2016 she had a fracture on T12 , but had been doing well with pain. A couple of months ago, pt reports she has been falling more frequently but she has been off balance for 10 years now since she broke her leg in 2001. Over the past 2 weeks, pt states she has fallen 4 times and feels she is too weak to live at home by herself. Pt denies any other injuries from fall. She endorses bilateral swelling of LE for 1 week but denies numbness. Pt is not anticoagulated. She is a bit of a poor historian. Pt was last seen here in the ED on 06/16/17 for LE swelling. - History of Current Complaint Chief Complaint: EDWeakness Stated Complaint: FALL, Time Seen by Provider: 06/23/17 11:00 Hx Obtained From: Patient Mechanism of Injury: Fall Ambulatory at the Scene: Yes Loss of Consciousness: no loss of consciousness Onset/Duration: Traumatic, Worse Since - 2 days ago Onset of Pain: Days Character: Stabbing Aggravating Factor(s): Movement Alleviating Factor(s): Rest Associated Signs & Symptoms: Negative: Abdominal Pain, Numbness/Weakness - Additional Pertinent History Primary Care Physician: [id number] - Allergy/Home Medications Allergies/Adverse Reactions: Allergies Allergy/AdvReac Type Severity Reaction Status Date / Time Acetaminophen [From Vicodin] Allergy Nausea Verified 06/16/17 18:36 Bupropion [From Wellbutrin] Allergy Altered Verified 06/16/17 18:36 Mental Status Hydrocodone [From Vicodin] Allergy Nausea Verified 06/16/17 18:36 Iodine Allergy KHOURY SKIN Verified 06/16/17 18:36 decongestants Allergy Intermediate hyperactivi Uncoded 06/16/17 18:36 ty anesthesia Allergy states Uncoded 06/16/17 18:36 becomes violentlyl ill with vomiting. ENVIRONMENTAL Allergy GI Upset Uncoded 06/16/17 18:36 Home Medications: Home Medications Atorvastatin* [Lipitor*] 20 mg PO DAILY 06/23/17 [History Confirmed 06/23/17] Beclomethasone 80 MCG MDI(NF) [Qvar 80 MCG MDI(NF)] 1 puff INH BID 06/23/17 [ History Confirmed 06/23/17] Calcium Carbonate [Calcium 600] 600 mg PO TID 06/23/17 [History Confirmed ] Cholecalciferol TAB* [Vitamin D TAB*] 1,000 unit PO DAILY 06/23/17 [History Confirmed 06/23/17] Cyclosporine 0.05% OPHTH (NF) [Restasis 0.05% OPHTH] 1 drop BOTH EYES Q12HR 08/30 [History Confirmed 06/23/17] Diclofenac 1% GEL (NF) [Voltaren 1% GEL (NF)] 1 applic TOPICAL BID PRN 06/23/17 [History Confirmed 06/23/17] Diltiazem HCl Coated Beads [Cardizem LA] 240 mg PO DAILY 06/23/17 [History Confirmed 06/23/17] Epinephrine [Epipen 2-Dario] 0.3 mg IM ONCE PRN 06/23/17 [History Confirmed ] Flaxseed (Linseed) [Flaxseed Oil Maximum Stre] 1 cap PO DAILY 06/23/17 [History Confirmed 06/23/17] Fluticasone NASAL SPRAY 50MCG* [Flonase NASAL SPRAY 50MCG*] 2 spray BOTH NARES DAILY 06/23/17 [History Confirmed 06/23/17] Levothyroxine TAB* [Synthroid TAB*] 37.5 mcg PO QAM 06/23/17 [History Confirmed 06/23/17] Losartan TAB* [Cozaar TAB*] 100 mg PO DAILY 06/23/17 [History Confirmed 06/23/17 ] Melatonin (NF) [Meladox] 3 mg PO BEDTIME PRN 06/23/17 [History Confirmed ] Sertraline* [Zoloft*] 150 mg PO DAILY 06/23/17 [History Confirmed 06/23/17] PMH/Surg Hx/FS Hx/Imm Hx Endocrine/Hematology History: Denies: Hx Diabetes, Hx Thyroid Disease Cardiovascular History: Reports: Hx Hypercholesterolemia, Hx Hypertension, Other Cardiovascular Problems/Disorders - LBBB- BENIGN Denies: Hx Pacemaker/ICD Respiratory History: Denies: Hx Asthma, Hx Chronic Obstructive Pulmonary Disease (COPD) GI History: Reports: Hx Gastroesophageal Reflux Disease, Hx Hiatal Hernia, Other GI Disorders - DIVERTICULITIS Denies: Hx Ulcer History: Denies: Hx Renal Disease Musculoskeletal History: Reports: Hx Arthritis - BACK, HIPS, Other Musculoskeletal History - DDD, S/P CERVICAL FUSION, CERVICAL SPINAL STENOSIS Sensory History: Reports: Hx Cataracts - ILLY, Hx Contacts or Glasses - GLASSES Denies: Hx Hearing Aid Opthamlomology History: Reports: Hx Cataracts - LILY, Hx Contacts or Glasses - GLASSES Psychiatric History: Reports: Hx Anxiety - R/T TMJ Denies: Hx Panic Disorder - Cancer History Cancer Type, Location and Year: SKIN CARCINOMA Hx Chemotherapy: No Hx Radiation Therapy: No - Surgical History Surgery Procedure, Year, and Place: CSP FUSED 1998 [place]. RIGHT LEG SURGERY HARDWARE REMOVED 1999 [place]. cataracts Hx Anesthesia Reactions: Yes - AGITATION Infectious Disease History: Denies: Hx Clostridium Difficile, Hx Hepatitis, Hx Human Immunodeficiency Virus (HIV), Hx of Known/Suspected MRSA, Hx Known/Suspected VRE, Hx Known/ Suspected VRSA, History Other Infectious Disease - Family History Known Family History: Positive: Hypertension, Other - GERD, stroke (mother) - Social History Alcohol Use: None Hx Substance Use: No Substance Use Type: Reports: Marijuana Hx Tobacco Use: Yes Smoking Status (MU): Heavy Every Day Tobacco Smoker Type: Cigarettes Amount Used/How Often: 3/4 PACK A DAY Length of Time of Smoking/Using Tobacco: 50 YRS Have You Smoked in the Last Year: Yes Review of Systems Positive: Other - Buttocks pain. Positive: Weakness. Negative: Numbness All Other Systems Reviewed And Are Negative: Yes Physical Exam - Summary Physical Exam Summary: General: well-appearing, mild dementia, a bit of a poor historian Skin: warm, color reflects adequate perfusion, dry Head: normal Eyes: EOMI, ARLEEN ENT: normal Neck: supple, nontender Respiratory: CTA, breath sounds present Cardiovascular: RRR Abdomen: soft, nontender Bowel: present Musculoskeletal: strength/ROM intact. Tender to palpation on R side.. Pedal edema bilaterally. LE: normal plantar flexion and dorsal flexion bilaterally. Pt has effort against gravity to raise legs but decreased ROM secondary to pain. Neurological: normal, sensory/motor intact, A&O x3. No neurologic deficits found on exam. Psychological: affect/mood appropriate Triage Information Reviewed: Yes Vital Signs On Initial Exam: Initial Vitals Temp Pulse Resp BP Pulse Ox 97.6 F 92 16 177/89 100 06/23/17 11:20 06/23/17 11:20 06/23/17 11:20 06/23/17 11:20 06/23/17 11:20 Vital Signs Reviewed: Yes Diagnostics - Vital Signs Vital Signs Temp Pulse Resp BP Pulse Ox 06/23/17 13:00 95 87 06/23/17 12:58 97 160/83 87 06/23/17 12:00 93 167/78 95 06/23/17 11:30 91 177/89 98 06/23/17 11:28 92 97 06/23/17 11:26 159/85 06/23/17 11:20 97.6 F 92 16 177/89 100 - Laboratory Lab Results: Lab Results 06/23/17 06/23/17 06/23/17 Range/Units 13:41 13:41 13:41 WBC 19.0 H (3.5-10.8) 10^3/ul RBC 4.73 (4.0-5.4) 10^6/ul Hgb 15.0 (12.0-16.0) g/dl Hct 46 (35-47) % MCV 96 (80-97) fL MCH 32 H (27-31) pg MCHC 33 (31-36) g/dl RDW 14 (10.5-15) % Plt Count 605 H D (150-450) 10^3/ul MPV 8 (7.4-10.4) um3 Neut % (Auto) 74.5 (38-83) % Lymph % (Auto) 14.4 L (25-47) % Fergus % (Auto) 8.9 (1-9) % Eos % (Auto) 1.7 (0-6) % Baso % (Auto) 0.5 (0-2) % Absolute Neuts (auto) 14.2 H (1.5-7.7) 10^3/ul Absolute Lymphs (auto) 2.7 (1.0-4.8) 10^3/ul Absolute Monos (auto) 1.7 H (0-0.8) 10^3/ul Absolute Eos (auto) 0.3 (0-0.6) 10^3/ul Absolute Basos (auto) 0.1 (0-0.2) 10^3/ul Absolute Nucleated RBC 0.01 10^3/ul Nucleated RBC % 0 INR (Anticoag Therapy) 0.84 L (0.89-1.11) APTT 33.5 (26.0-36.3) seconds Sodium 139 (133-145) mmol/L Potassium 3.0 L (3.5-5.0) mmol/L Chloride 99 L (101-111) mmol/L Carbon Dioxide 32 (22-32) mmol/L Anion Gap 8 (2-11) mmol/L BUN 21 (6-24) mg/dL Creatinine 0.72 (0.51-0.95) mg/dL Est GFR ( Amer) 102.1 (>60) Est GFR (Non-Af Amer) 79.4 (>60) BUN/Creatinine Ratio 29.2 H (8-20) Glucose 101 H (70-100) mg/dL Lactic Acid (0.5-2.0) mmol/L Calcium 9.7 (8.6-10.3) mg/dL Magnesium 1.7 L (1.9-2.7) mg/dL Total Bilirubin 0.50 (0.2-1.0) mg/dL AST 13 (13-39) U/L ALT 14 (7-52) U/L Alkaline Phosphatase 81 (34-104) U/L Ammonia (16-53) mol/L Total Creatine Kinase 27 (10-223) U/L CK-MB (CK-2) 1.7 (0.6-6.3) ng/mL Troponin I 0.03 (<0.04) ng/mL C-Reactive Protein 59.25 H (< 5.00) mg/L B-Natriuretic Peptide ( - 100) pg/mL Total Protein 7.0 (6.4-8.9) g/dL Albumin 3.5 (3.2-5.2) g/dL Globulin 3.5 (2-4) g/dL Albumin/Globulin Ratio 1.0 (1-3) Lipase 28 (11.0-82.0) U/L TSH 4.50 (0.34-5.60) mcIU/mL Acetaminophen < 15 mcg/mL Serum Alcohol < 10 (<10) mg/dL 06/23/17 06/23/17 Range/Units 13:41 13:41 WBC (3.5-10.8) 10^3/ul RBC (4.0-5.4) 10^6/ul Hgb (12.0-16.0) g/dl Hct (35-47) % MCV (80-97) fL MCH (27-31) pg MCHC (31-36) g/dl RDW (10.5-15) % Plt Count (150-450) 10^3/ul MPV (7.4-10.4) um3 Neut % (Auto) (38-83) % Lymph % (Auto) (25-47) % Fergus % (Auto) (1-9) % Eos % (Auto) (0-6) % Baso % (Auto) (0-2) % Absolute Neuts (auto) (1.5-7.7) 10^3/ul Absolute Lymphs (auto) (1.0-4.8) 10^3/ul Absolute Monos (auto) (0-0.8) 10^3/ul Absolute Eos (auto) (0-0.6) 10^3/ul Absolute Basos (auto) (0-0.2) 10^3/ul Absolute Nucleated RBC 10^3/ul Nucleated RBC % INR (Anticoag Therapy) (0.89-1.11) APTT (26.0-36.3) seconds Sodium (133-145) mmol/L Potassium (3.5-5.0) mmol/L Chloride (101-111) mmol/L Carbon Dioxide (22-32) mmol/L Anion Gap (2-11) mmol/L BUN (6-24) mg/dL Creatinine (0.51-0.95) mg/dL Est GFR ( Amer) (>60) Est GFR (Non-Af Amer) (>60) BUN/Creatinine Ratio (8-20) Glucose (70-100) mg/dL Lactic Acid 1.4 (0.5-2.0) mmol/L Calcium (8.6-10.3) mg/dL Magnesium (1.9-2.7) mg/dL Total Bilirubin (0.2-1.0) mg/dL AST (13-39) U/L ALT (7-52) U/L Alkaline Phosphatase (34-104) U/L Ammonia 34 (16-53) mol/L Total Creatine Kinase (10-223) U/L CK-MB (CK-2) (0.6-6.3) ng/mL Troponin I (<0.04) ng/mL C-Reactive Protein (< 5.00) mg/L B-Natriuretic Peptide 339 H ( - 100) pg/mL Total Protein (6.4-8.9) g/dL Albumin (3.2-5.2) g/dL Globulin (2-4) g/dL Albumin/Globulin Ratio (1-3) Lipase (11.0-82.0) U/L TSH (0.34-5.60) mcIU/mL Acetaminophen mcg/mL Serum Alcohol (<10) mg/dL Result Diagrams: 06/23/17 13:41 06/23/17 13:41 Lab Statement: Any lab studies that have been ordered have been reviewed, and results considered in the medical decision making process. - Radiology Chest XR Xray Interpretation: No Acute Changes - IMPRESSION: NO ACTIVE DISEASE Radiology Interpretation Completed By: Radiologist - CT CT Pelvis CT Interpretation: No Acute Changes - IMPRESSION: NO ACUTE BONY FINDINGS. NO INTERVAL CHANGES. CT Interpretation Completed By: Radiologist CT Spine Lumbar CT Interpretation: Positive (See Comments) - IMPRESSION: Progressive fracture of the T12 vertebra with vertebral plana. Further canal compromise is noted with the AP dimension of the canal measuring 6 mm. Nerve root sleeve cysts are noted at the S1 and S2 levels. CT Interpretation Completed By: Radiologist - EKG 1142 Cardiac Rate: NL - 90 bpm EKG Rhythm: Sinus Rhythm Ectopy: None EKG Interpretation: LBBB Adult Trauma Course/Dx - Course Course Of Treatment: PATIENT TOO WEAK TO CARE FOR SELF AT HOME. WBC ELEVATED. ADMIT HOSPITALIST STABLE. - Diagnoses Provider Diagnoses: Weakness, Spinal stenosis, Leukocytosis Discharge - Discharge Plan Condition: Stable Disposition: ADMITTED TO [facility] Referrals: Nikolas NARAYAN,Jennifer Perry [Primary Care Provider] - The documentation as recorded by the Higinio mcdonald Angela accurately reflects the service I personally performed and the decisions made by me, Isra Ahumada MD.
--- NOTE | 2017-06-23 15:44 | RAD ---
Indication: Right leg edema. Duplex Doppler sonography of the deep venous system of the right lower extremity deep venous system was performed. Bilaterally the common femoral veins appear patent and compressible. Right proximal greater saphenous vein, proximal deep femoral vein, femoral vein, popliteal vein, posterior tibial veins and peroneal veins appear patent and compressible. IMPRESSION: NO EVIDENCE OF DEEP VENOUS THROMBOSIS IS IDENTIFIED.
[2017-06-23] MEDS ORDERED: cefTRIAXone VIAL(*) 1,000 MG in NS 0.9% 50 ML* 50 ML IVPB SCH (16:00)
[2017-06-23] MEDS ORDERED: cefTRIAXone VIAL(*) 1,000 MG in NS 0.9% 50 ML* 50 ML IVPB ONE (16:00)
[2017-06-23] MEDS: NS 0.9% 1000 ML* 1,000 ML IV SCH (19:17)
--- NOTE | 2017-06-23 19:52 | RAD ---
INDICATION: Right-sided hip and leg pain after multiple falls the past week COMPARISON: Similar examination April 20, 2017 TECHNIQUE: Coronal product tester, sagittal T1, inversion recovery, T2, and axial T1, T2 images were acquired. FINDINGS: The spinal cord terminates at the L1/L2 level. There are no intrinsic abnormalities of the visualized cord. There is a stable compression deformity of the T12 vertebral body with retropulsion of the posterior vertebral body abutting the spinal cord. This is similar in appearance to the prior MRI. There is no subsequent abnormality in the signal of the spinal cord. There is loss of fluid signal at essentially all intervertebral disc levels except L3/L4 which partially retains a normal fluid signal. Axial view images: Less otherwise specified below there is no significant central canal stenosis or neural foraminal stenosis. T12-L1: Posterior displacement of the posterior T12 vertebral body abuts and distorts the ventral surface of the cord and causes central canal stenosis. L1-L2: There is mild broad-based disc protrusion slightly eccentric towards the right that combines with facet arthropathy to cause mild neural foraminal stenosis. L2-L3: There is broad-based disc protrusion eccentric towards the left and extending into the left neural foramen that combines with facet arthropathy to cause mild left-sided neural foraminal stenosis. L3-L4: Broad-based disc protrusion extending into the left neural foramen and combines with facet arthropathy and thickening of the ligamentum flavum to cause a very mild degree of central canal stenosis and mild bilateral neural foraminal stenosis. L4-L5: Broad-based disc protrusion eccentric into the left neural foramen combines with facet arthropathy and thickening of the ligamentum flavum to cause mild to moderate central canal stenosis mild left and moderate right neural foraminal stenosis. L5-S1: There is no significant central canal or neural foraminal stenoses. IMPRESSION: There is multilevel degenerative change as described in more detail above. There is a stable T12 compression fracture with posterior displacement of the vertebral body abutting and distorting the ventral spinal cord similar in appearance to the April 20, 2017 MRI. More inferiorly there are varying degrees of degenerative disc disease and degenerative changes causing central canal or neural foraminal stenoses most severely at L4/L5.
--- NOTE | 2017-06-23 21:08 | HP ---
CC: Dr. Swenson * ADMISSION HISTORY AND PHYSICAL: DATE OF ADMISSION: PRIMARY CARE PROVIDER: Dr. Swenson. HEALTHCARE PROXY: Her sister, Tarsha Dai. CODE STATUS: Full. SOURCES OF INFORMATION: History obtained from review of past medical records and review of outpatient records from [place], both excellent and interview with the patient and her sister, who are poor historians. CHIEF COMPLAINT: Weakness. HISTORY OF PRESENT ILLNESS: This is a 71-year-old female who sustained a fall in October 2016 with resultant T12 fracture, then performed a rehab in [facility] where she was admitted to [facility] in November of 2016 with altered mental status which was thought to be in the setting of opioids and polypharmacy. Since that time, she has had continued hallucinations and altered mental status; however, had increased, but then worsened over the last 3 to 4 weeks and precipitously worse over the last week. Additionally, over the last week, she has had 4 falls including one out of a stopped car when [place] [facility] [place]. She has had contact with Dr. Swenson's office for regular followup, last was on 06/22/17. She did present to the ED on 06/16/17 with unsteady gait for a month, but was discharged from the emergency room. She noted last week in addition to increasing falls, she has had increasing lower extremity swelling for which Dr. Swenson recommended lower extremity compression stockings, which she started to wear yesterday. This morning, she was found half on the couch and half on the floor and could not get up and was unable to be assisted by her sister, for this reason presented [place] [facility] The patient endorses increased pain in her legs for the last week, decreased energy , and decreased lower extremity strength without paresthesias. The patient noted some urinary incontinence; however, describes it as inability to get to the bathroom in time; however, also notes stool incontinence that she cannot control. In the emergency room, she is saying her pain is well controlled, however, concerned because of her decreasing strength. She denies any dysuria or urinary frequency or hesitancy. She denies diarrhea or constipation. She denies cough, shortness of breath or chest pain, nausea, vomiting. She denies any change in her appetite. Has been eating a low-salt diet for her lower extremity swelling. Please see Dr. Swenson's note in the chart received from [facility] for additional details of the patient's history from until today as well as remote history. PAST MEDICAL HISTORY: Spinal surgery in 1998; anterior cervical diskectomy, osteophytectomy, and arthrodesis at C4-C5 and C5-C6; leg surgery in 2001; bone graft, 2002; tubal ligation; D and C in 1966 and 1974; high blood pressure; Sjogren's syndrome, told she has lupus based on symptoms, however, previous sales architect notes did not indicate lupus as per Dr. Swenson's notes. Insomnia, anxiety, osteoporosis, Ángel's thyroiditis, hypercholesterolemia, TMJ basal cell skin cancer, and T12 vertebral fracture with stenosis in October 2016. HOME MEDICATIONS: 1. Cod liver oil 1 cap daily. 2. Cholecalciferol 1000 units daily. 3. Flaxseed 1 cap daily. 4. Diclofenac gel topically twice daily as needed. 5. Ascorbic acid 1000 mg daily. 6. Fluticasone nasal spray, 2 sprays both nares daily. 7. Vitamin B12 500 mcg daily. 8. Calcium carbonate 600 mg 3 times a day. 9. Hydrochlorothiazide 25 mg in the morning. 10. QVAR 1 puff twice daily. 11. Gabapentin 600 mg 3 times a day. 12. Restasis 0.05% drops, 1 drop both eyes twice daily. 13. Zoloft 150 mg daily. 14. Celebrex 100 mg twice daily. 15. Protonix 40 mg daily. 16. Lipitor 20 mg daily. 17. Levothyroxine 37.5 mg in the morning. 18. Famotidine 40 mg twice daily. 19. Diltiazem coated beads 240 mg daily. 20. Losartan 100 mg daily. 21. Epinephrine as needed for anaphylaxis. 22. Melatonin 3 mg at bedtime as needed for insomnia. ALLERGIES: To ACETAMINOPHEN, BUPROPION, HYDROCODONE, IODINE, DECONGESTANTS, ANESTHESIA, and ENVIRONMENTAL ALLERGIES. FAMILY HISTORY: Mother with asthma. Brother with MS. Father from lung cancer at age 72. SOCIAL HISTORY: About 55-ytdx-uot-year smoking history. No current alcohol. Lives alone. Sister is here visiting. REVIEW OF SYSTEMS: As per HPI, otherwise all other systems negative. PHYSICAL EXAMINATION GENERAL: She is an obese female, lying flat in bed, interactive, pleasant, in no apparent distress. VITAL SIGNS: When seen by this author, 159/85, heart rate 96, respiratory rate is 14, T-max in the emergency room was 97.6, and 98% on room air. HEENT: Oropharynx is clear. She has moist mucous membranes. Sclerae are anicteric. NECK: She has non-elevated JVD. LUNGS: Symmetric breath sounds. Trace rales in the right base. HEART: She has regular rate and rhythm. No murmurs, rubs, or gallops. ABDOMEN: Soft, nontender, nondistended. EXTREMITIES: Warm, well perfused. She has 1+ lower extremity edema in her left leg and 2 to 3+ in her right leg from her foot to 6 inches below her knee. NEUROLOGIC: Strength is unchanged from her baseline. She is alert and oriented x3. Her cranial nerves II through XII are intact. She has full range of motion, and she had 3/5 symmetric lower extremity strength, limited by pain. SKIN: Her skin indicates erythema around her cuticles in both her hands and her feet, which she cannot say is new or not. She has cool toes but warm extremities. DIAGNOSTIC STUDIES/LAB DATA: Reviewed. White blood cell count is 19,000 which is 75% neutrophil, hemoglobin of 15, and platelets are 605. INR is 0.84. Potassium is 3.0, chloride 99, BUN 21, creatinine 0.72. Lactic acid is 1.4. CRP is 59. BNP is 339. TSH is 4.5. Data reviewed: CT of her lumbar spine indicates progressive fracture of the T12 vertebra with vertebra plana compared to October 2016 with further canal compromise noted in the AP dimensions of the canal measuring 6 mm. There is nerve root sleeve cyst at S1 and S2 near the nerve root sleeves. ASSESSMENT AND PLAN: This is a 71-year-old female, past medical history as outlined above including fall, at this time complicated by T12 fracture with course complicated since that time with mental status changes including hallucinations as well as progressive weakness and increasing falls, now presenting to the hospital with increase in falls and weakness associated with lower extremity edema over the last week. 1. Leukocytosis. No evidence of active infection. Urine is still pending, though dose ceftriaxone at this time and follow white blood cell count tomorrow. Of note, her white blood cell count has been elevated in the past was noted on discharge summary, without evidence or suspicion for infection. In the setting of thrombocytosis, may consider myeloproliferative disease. If no other etiology is elucidated, can consider Hematology consult for bone marrow biopsy. Dose ceftriaxone and I will follow tomorrow. Normal saline for 2 additional liters at 150 cc/hour. 2. Weakness. CAT scan changes are compared to October 2016. Notably, MRI in April did not elucidate a reason the patient would have worsening weakness and/or fecal and urinary incontinence. At this time, because of increasing falls, particularly four additional falls in the last week as well as CT findings associated with weakness and fecal and urinary incontinence, we will repeat MRI of the spine. 3. Tobacco abuse. Nicotine replacement. 4. Hypertension. Continue all home medications. 5. Hypokalemia. Replace orally. 6. Weakness. PT/OT. 7. Right lower extremity swelling worse than left - check Doppler to rule out deep venous thrombosis. 8. DVT prophylaxis. Heparin subcu. [id number]/[facility] #: [id number] [facility]PITALMichel
[2017-06-23] MEDS: Mometasone/Formoter 200/5 MDI INH SCH (21:15)
[2017-06-23] MEDS: celeCOXIB CAP* 100 MG PO SCH (22:34)
[2017-06-23] MEDS: Famotidine TAB* 20 MG PO SCH (22:34)
[2017-06-23] MEDS: Heparin VIAL(*) 5000 UNITS/ML VIAL (FIVE THOUSAND) SUBCUT SCH (22:35)
[2017-06-23] MEDS: Gabapentin CAP(*) 300 MG PO SCH (22:35)
[2017-06-23] MEDS: CYCLOSPORINE 0.05% BOTH EYES SCH (22:37)
[2017-06-24] MEDS: NS 0.9% 1000 ML* 1,000 ML IV SCH (02:29)
[2017-06-24] MEDS: Levothyroxine TAB* 25 MCG TAB PO SCH (05:10)
[2017-06-24] MEDS: Heparin VIAL(*) 5000 UNITS/ML VIAL (FIVE THOUSAND) SUBCUT SCH ×3 (05:11→22:51)
[2017-06-24] MEDS: Mometasone/Formoter 200/5 MDI INH SCH ×2 (07:56→19:26)
[2017-06-24] MEDS: Fluticasone NASAL SPRAY 50MCG* 16 gm SPRAY BTL BOTH NARES SCH (09:47)
[2017-06-24] MEDS: Atorvastatin* 20 MG TAB PO SCH (09:48)
[2017-06-24] MEDS: Ascorbic Acid TAB* 500 MG PO SCH (09:48)
[2017-06-24] MEDS: Famotidine TAB* 20 MG PO SCH ×2 (09:48→20:05)
[2017-06-24] MEDS: Losartan TAB* 25 MG PO SCH (09:48)
[2017-06-24] MEDS: Omeprazole CAP* 20 MG PO SCH (09:48)
[2017-06-24] MEDS: Hydrochlorothiazide TAB* 25 MG PO SCH (09:49)
[2017-06-24] MEDS: Cholecalciferol TAB* 1000 UNITS PO SCH (09:49)
[2017-06-24] MEDS: Cyanocobalamin TAB* 500 MCG PO SCH (09:49)
[2017-06-24] MEDS: Diltiazem CD CAP* 240 MG PO SCH (09:49)
[2017-06-24] MEDS: Gabapentin CAP(*) 300 MG PO SCH ×3 (09:49→20:04)
[2017-06-24] MEDS: Sertraline* 100 MG TAB PO SCH (09:49)
[2017-06-24] MEDS: celeCOXIB CAP* 100 MG PO SCH ×2 (09:50→20:05)
[2017-06-24] MEDS: Nicotine PATCH 14 MG/24 HR* PATCH TRANSDERM SCH (09:53)
[2017-06-24] MEDS: CYCLOSPORINE 0.05% BOTH EYES SCH ×2 (09:54→20:07)
[2017-06-24 14:52] LABS: Urine Bilirubin Negative (Negative); Urine Glucose Negative (Negative); Urine Nitrite Negative (Negative)
--- NOTE | 2017-06-24 15:49 | PN ---
Subjective Date of Service: 06/24/17 Interval History: Pt walked "the first time in days" with a rolling walker and one tova assist. c/o : LBP, R leg weakness and R leg parenthesis x 2 weeks. Has had several falls in the past 2 months. stated that sometimes her legs "just don't move" and then she needs to pick them up with her arms to move in bed. Denies bowel or bladder incontinence Objective Active Medications: Ascorbic Acid (Vitamin C Tab*) 1,000 mg PO DAILY [facility] Last Admin: 06/24/17 09:48 Dose: 1,000 mg Atorvastatin Calcium (Lipitor*) 20 mg PO DAILY [facility] Last Admin: 06/24/17 09:48 Dose: 20 mg Celecoxib (Celebrex Cap*) 100 mg PO BID [facility] Last Admin: 06/24/17 09:50 Dose: 100 mg Cholecalciferol (Vitamin D Tab*) 1,000 units PO DAILY [facility] Last Admin: 06/24/17 09:49 Dose: 1,000 units Cyanocobalamin (Vitamin B12 Tab*) 500 mcg PO DAILY [facility] Last Admin: 06/24/17 09:49 Dose: 500 mcg Cyclosporine (Restasis 0.05% [facility]) 1 drop BOTH EYES Q12HR [facility] PRN Reason: Protocol Last Admin: 06/24/17 09:54 Dose: Not Given Diltiazem HCl (Cardizem Cd Cap*) 240 mg PO DAILY [facility] Last Admin: 06/24/17 09:49 Dose: 240 mg Famotidine (Pepcid Tab*) 40 mg PO BID [facility] Last Admin: 06/24/17 09:48 Dose: 40 mg Fluticasone Propionate (Flonase Nasal [place] 50mcg*) 2 spray BOTH NARES DAILY [facility] Last Admin: 06/24/17 09:47 Dose: 2 spray Gabapentin (Neurontin Cap(*)) 600 mg PO TID [facility] Last Admin: 06/24/17 14:27 Dose: 600 mg Heparin Sodium (Porcine) (Heparin Vial(*)) 5,000 units SUBCUT Q8HR [facility] Last Admin: 06/24/17 14:27 Dose: 5,000 units Hydrochlorothiazide (Hydrodiuril Tab*) 25 mg PO QAM [facility] Last Admin: 06/24/17 09:49 Dose: 25 mg Sodium Chloride (Ns 0.9% 1000 Ml*) 1,000 mls @ 150 mls/hr IV PER RATE [facility] Stop: 06/24/17 22:09 Last Admin: 06/24/17 02:29 Dose: 150 mls/hr Levothyroxine Sodium (Synthroid Tab*) 37.5 mcg PO DAILY@0600 [facility] Last Admin: 06/24/17 05:10 Dose: 37.5 mcg Losartan Potassium (Cozaar Tab*) 100 mg PO DAILY [facility] Last Admin: 06/24/17 09:48 Dose: 100 mg Mometasone Furoate/Formoterol Fumar (Dulera 200/5 Mdi*) 2 puff INH BID [facility] Last Admin: 06/24/17 07:56 Dose: Not Given Nicotine (Nicotine Patch 14 Mg/24 Hr*) 1 patch TRANSDERM DAILY [facility] Last Admin: 06/24/17 09:53 Dose: Not Given Omeprazole (Prilosec Cap*) 20 mg PO DAILY@0730 [facility] Last Admin: 06/24/17 09:48 Dose: 20 mg Pharmacy Profile Note (Nicotine Patch Removal Note*) 1 note PATCH OFF 2100 [facility] Sertraline HCl (Zoloft*) 150 mg PO DAILY [facility] Last Admin: 06/24/17 09:49 Dose: 150 mg Vital Signs 06/23/17 06/23/17 06/23/17 16:20 19:45 19:50 Temperature 98.0 F 97.9 F Pulse Rate 88 88 Respiratory 18 16 16 Rate Blood Pressure 120/93 149/77 (mmHg) O2 Sat by Pulse 92 90 Oximetry 06/23/17 06/23/17 06/23/17 19:56 22:35 23:31 Temperature 98.2 F Pulse Rate 95 Respiratory 16 16 16 Rate Blood Pressure 141/85 (mmHg) O2 Sat by Pulse 92 Oximetry 06/24/17 06/24/17 06/24/17 00:35 03:29 07:16 Temperature 98.3 F 99.3 F Pulse Rate 95 92 Respiratory 16 20 16 Rate Blood Pressure 162/72 141/75 (mmHg) O2 Sat by Pulse 92 94 Oximetry 06/24/17 06/24/17 06/24/17 08:00 09:49 14:27 Temperature Pulse Rate Respiratory 20 18 16 Rate Blood Pressure (mmHg) O2 Sat by Pulse Oximetry Oxygen Devices in Use Now: None Appearance: 71 yo F in nAd, AAOx3 Eyes: No Scleral Icterus, PERRLA Ears/Nose/Mouth/Throat: NL Teeth, Lips, Gums, Mucous Membranes Moist Neck: NL Appearance and Movements; NL JVP, Trachea Midline Respiratory: Symmetrical Chest Expansion and Respiratory Effort, Clear to Auscultation Cardiovascular: NL Sounds; No Murmurs; No JVD, RRR Abdominal: NL Sounds; No Tenderness; No Distention Lymphatic: No Cervical Adenopathy Extremities: No Clubbing, Cyanosis, - - +1 pitting ankle edema b/l Skin: No Rash or Ulcers, No Nodules or Sclerosis Neurological: Alert and Oriented x 3, - - R LE weakness at 4+/5 Result Diagrams: 06/23/17 13:41 06/23/17 13:41 Additional Lab and Data: Lab Results 06/23/17 06/23/17 06/23/17 Range/Units 13:41 13:41 13:41 WBC 19.0 H (3.5-10.8) 10^3/ul RBC 4.73 (4.0-5.4) 10^6/ul Hgb 15.0 (12.0-16.0) g/dl Hct 46 (35-47) % MCV 96 (80-97) fL MCH 32 H (27-31) pg MCHC 33 (31-36) g/dl RDW 14 (10.5-15) % Plt Count 605 H D (150-450) 10^3/ul MPV 8 (7.4-10.4) um3 Neut % (Auto) 74.5 (38-83) % Lymph % (Auto) 14.4 L (25-47) % Fergus % (Auto) 8.9 (1-9) % Eos % (Auto) 1.7 (0-6) % Baso % (Auto) 0.5 (0-2) % Absolute Neuts (auto) 14.2 H (1.5-7.7) 10^3/ul Absolute Lymphs (auto) 2.7 (1.0-4.8) 10^3/ul Absolute Monos (auto) 1.7 H (0-0.8) 10^3/ul Absolute Eos (auto) 0.3 (0-0.6) 10^3/ul Absolute Basos (auto) 0.1 (0-0.2) 10^3/ul Absolute Nucleated RBC 0.01 10^3/ul Nucleated RBC % 0 INR (Anticoag Therapy) 0.84 L (0.89-1.11) APTT 33.5 (26.0-36.3) seconds Sodium 139 (133-145) mmol/L Potassium 3.0 L (3.5-5.0) mmol/L Chloride 99 L (101-111) mmol/L Carbon Dioxide 32 (22-32) mmol/L Anion Gap 8 (2-11) mmol/L BUN 21 (6-24) mg/dL Creatinine 0.72 (0.51-0.95) mg/dL Est GFR ( Amer) 102.1 (>60) Est GFR (Non-Af Amer) 79.4 (>60) BUN/Creatinine Ratio 29.2 H (8-20) Glucose 101 H (70-100) mg/dL Lactic Acid (0.5-2.0) mmol/L Calcium 9.7 (8.6-10.3) mg/dL Magnesium 1.7 L (1.9-2.7) mg/dL Total Bilirubin 0.50 (0.2-1.0) mg/dL AST 13 (13-39) U/L ALT 14 (7-52) U/L Alkaline Phosphatase 81 (34-104) U/L Ammonia (16-53) mol/L Total Creatine Kinase 27 (10-223) U/L CK-MB (CK-2) 1.7 (0.6-6.3) ng/mL Troponin I 0.03 (<0.04) ng/mL C-Reactive Protein 59.25 H (< 5.00) mg/L B-Natriuretic Peptide ( - 100) pg/mL Total Protein 7.0 (6.4-8.9) g/dL Albumin 3.5 (3.2-5.2) g/dL Globulin 3.5 (2-4) g/dL Albumin/Globulin Ratio 1.0 (1-3) Lipase 28 (11.0-82.0) U/L TSH 4.50 (0.34-5.60) mcIU/mL Acetaminophen < 15 mcg/mL Serum Alcohol < 10 (<10) mg/dL 06/23/17 06/23/17 Range/Units 13:41 13:41 WBC (3.5-10.8) 10^3/ul RBC (4.0-5.4) 10^6/ul Hgb (12.0-16.0) g/dl Hct (35-47) % MCV (80-97) fL MCH (27-31) pg MCHC (31-36) g/dl RDW (10.5-15) % Plt Count (150-450) 10^3/ul MPV (7.4-10.4) um3 Neut % (Auto) (38-83) % Lymph % (Auto) (25-47) % Fergus % (Auto) (1-9) % Eos % (Auto) (0-6) % Baso % (Auto) (0-2) % Absolute Neuts (auto) (1.5-7.7) 10^3/ul Absolute Lymphs (auto) (1.0-4.8) 10^3/ul Absolute Monos (auto) (0-0.8) 10^3/ul Absolute Eos (auto) (0-0.6) 10^3/ul Absolute Basos (auto) (0-0.2) 10^3/ul Absolute Nucleated RBC 10^3/ul Nucleated RBC % INR (Anticoag Therapy) (0.89-1.11) APTT (26.0-36.3) seconds Sodium (133-145) mmol/L Potassium (3.5-5.0) mmol/L Chloride (101-111) mmol/L Carbon Dioxide (22-32) mmol/L Anion Gap (2-11) mmol/L BUN (6-24) mg/dL Creatinine (0.51-0.95) mg/dL Est GFR ( Amer) (>60) Est GFR (Non-Af Amer) (>60) BUN/Creatinine Ratio (8-20) Glucose (70-100) mg/dL Lactic Acid 1.4 (0.5-2.0) mmol/L Calcium (8.6-10.3) mg/dL Magnesium (1.9-2.7) mg/dL Total Bilirubin (0.2-1.0) mg/dL AST (13-39) U/L ALT (7-52) U/L Alkaline Phosphatase (34-104) U/L Ammonia 34 (16-53) mol/L Total Creatine Kinase (10-223) U/L CK-MB (CK-2) (0.6-6.3) ng/mL Troponin I (<0.04) ng/mL C-Reactive Protein (< 5.00) mg/L B-Natriuretic Peptide 339 H ( - 100) pg/mL Total Protein (6.4-8.9) g/dL Albumin (3.2-5.2) g/dL Globulin (2-4) g/dL Albumin/Globulin Ratio (1-3) Lipase (11.0-82.0) U/L TSH (0.34-5.60) mcIU/mL Acetaminophen mcg/mL Serum Alcohol (<10) mg/dL Assess/Plan/Problems-Billing Assessment: 71 yo F with h/o HTN, hypothyroidism, smoking presents with falls. Pt has h/o T12 compression fx in 11/2015 - Patient Problems (1) T12 compression fracture Comment: With resultant spinal stenosis, r leg weakness and paresthesis. D/w Dr. Frank (neurosurgery emergency communications dispatcher). Cont with PT/OT as tolerated, but start neurochecks Q6H, if pt develops new deficit she may need to be placed on bedrest, but for now can ambulate with assist till TLSO brace arrives. (2) Leukocytosis Comment: - suspect reactive stress respone. no obvious signs of infection. -will stop Ceftriaxone (3) Hypothyroid Comment: TSH WNLs, continue synthroid (4) HTN (hypertension) Comment: continue home medications losartan and cardizem (5) Tobacco abuse Comment: nicotine replacement tx provided (6) DVT prophylaxis Comment: HSQ
[2017-06-24] MEDS: Magnesium Oxide TAB* 400 MG PO SCH (18:07)
[2017-06-24] MEDS: Nicotine Patch Removal NOTE PATCH OFF SCH (20:07)
[2017-06-25 05:49] LABS: Hematocrit 38 % (35-47); Hemoglobin 12.7 g/dl (12.0-16.0); Mean Corpuscular HGB Conc 33 g/dl (31-36); Mean Corpuscular Hemoglobin 32 pg (27-31); Mean Corpuscular Volume 95 fL (80-97); Mean Platelet Volume 8 um3 (7.4-10.4); Red Blood Count 3.99 10^6/ul (4.0-5.4); Red Cell Distribution Width 14 % (10.5-15); White Blood Count 15.2 10^3/ul (3.5-10.8)
[2017-06-25] MEDS: Levothyroxine TAB* 25 MCG TAB PO SCH (05:50)
[2017-06-25] MEDS: Heparin VIAL(*) 5000 UNITS/ML VIAL (FIVE THOUSAND) SUBCUT SCH ×3 (05:51→22:09)
[2017-06-25 05:55] LABS: Add Diff/Slide Review? Slide Review Added; Comments Flag Yes
[2017-06-25 06:37] LABS: BUN/Creatinine Ratio 15.8 (8-20); Calcium 8.3 mg/dL (8.6-10.3); EGFR African American 95.9 (>60); EGFR Non-African American 74.6 (>60); Magnesium 1.8 mg/dL (1.9-2.7); Potassium 3.6 mmol/L (3.5-5.0)
[2017-06-25] MEDS: Mometasone/Formoter 200/5 MDI INH SCH ×2 (09:33→19:58)
[2017-06-25] MEDS: Ascorbic Acid TAB* 500 MG PO SCH (09:46)
[2017-06-25] MEDS: Hydrochlorothiazide TAB* 25 MG PO SCH (09:47)
[2017-06-25] MEDS: Cholecalciferol TAB* 1000 UNITS PO SCH (09:47)
[2017-06-25] MEDS: Gabapentin CAP(*) 300 MG PO SCH ×3 (09:48→22:06)
[2017-06-25] MEDS: Famotidine TAB* 20 MG PO SCH ×2 (09:49→22:07)
[2017-06-25] MEDS: Sertraline* 100 MG TAB PO SCH (09:50)
[2017-06-25] MEDS: Losartan TAB* 25 MG PO SCH (09:53)
[2017-06-25] MEDS: Omeprazole CAP* 20 MG PO SCH (09:54)
[2017-06-25] MEDS: Cyanocobalamin TAB* 500 MCG PO SCH (09:55)
[2017-06-25] MEDS: Diltiazem CD CAP* 240 MG PO SCH (09:55)
[2017-06-25] MEDS: celeCOXIB CAP* 100 MG PO SCH (09:56)
[2017-06-25] MEDS: Magnesium Oxide TAB* 400 MG PO SCH (09:57)
[2017-06-25] MEDS: Fluticasone NASAL SPRAY 50MCG* 16 gm SPRAY BTL BOTH NARES SCH (09:58)
[2017-06-25] MEDS: CYCLOSPORINE 0.05% BOTH EYES SCH ×2 (09:58→22:08)
[2017-06-25] MEDS: Atorvastatin* 20 MG TAB PO SCH (10:40)
[2017-06-25] MEDS: Nicotine PATCH 14 MG/24 HR* PATCH TRANSDERM SCH (11:17)
[2017-06-25] MEDS: Ibuprofen TAB* 600 MG PO PRN ×2 (11:18→22:07)
--- NOTE | 2017-06-25 14:42 | PN ---
Subjective Date of Service: 06/25/17 Interval History: pt c/o severe r leg pain this AM, now better after ibuprofen. Still has occasional paresthesias in R leg Objective Active Medications: Ascorbic Acid (Vitamin C Tab*) 1,000 mg PO DAILY [facility] Last Admin: 06/25/17 09:46 Dose: 1,000 mg Atorvastatin Calcium (Lipitor*) 20 mg PO DAILY [facility] Last Admin: 06/25/17 10:40 Dose: 20 mg Cholecalciferol (Vitamin D Tab*) 1,000 units PO DAILY [facility] Last Admin: 06/25/17 09:47 Dose: 1,000 units Cyanocobalamin (Vitamin B12 Tab*) 500 mcg PO DAILY [facility] Last Admin: 06/25/17 09:55 Dose: 500 mcg Cyclosporine (Restasis 0.05% [facility]) 1 drop BOTH EYES Q12HR [facility] PRN Reason: Protocol Last Admin: 06/25/17 09:58 Dose: 1 drop Diltiazem HCl (Cardizem Cd Cap*) 240 mg PO DAILY [facility] Last Admin: 06/25/17 09:55 Dose: 240 mg Famotidine (Pepcid Tab*) 40 mg PO BID [facility] Last Admin: 06/25/17 09:49 Dose: 40 mg Fluticasone Propionate (Flonase Nasal [place] 50mcg*) 2 spray BOTH NARES DAILY [facility] Last Admin: 06/25/17 09:58 Dose: 2 spray Gabapentin (Neurontin Cap(*)) 600 mg PO TID [facility] Last Admin: 06/25/17 09:48 Dose: 600 mg Heparin Sodium (Porcine) (Heparin Vial(*)) 5,000 units SUBCUT Q8HR [facility] Last Admin: 06/25/17 05:51 Dose: 5,000 units Hydrochlorothiazide (Hydrodiuril Tab*) 25 mg PO QAM [facility] Last Admin: 06/25/17 09:47 Dose: 25 mg Ibuprofen (Motrin Tab*) 600 mg PO Q6H PRN PRN Reason: PAIN Last Admin: 06/25/17 11:18 Dose: 600 mg Levothyroxine Sodium (Synthroid Tab*) 37.5 mcg PO DAILY@0600 [facility] Last Admin: 06/25/17 05:50 Dose: 37.5 mcg Losartan Potassium (Cozaar Tab*) 100 mg PO DAILY [facility] Last Admin: 08/12/17 09:53 Dose: 100 mg Magnesium Oxide (Magox 400 Tab*) 800 mg PO DAILY [facility] Last Admin: 06/25/17 09:57 Dose: 800 mg Mometasone Furoate/Formoterol Fumar (Dulera 200/5 Mdi*) 2 puff INH BID [facility] Last Admin: 06/25/17 09:33 Dose: Not Given Nicotine (Nicotine Patch 14 Mg/24 Hr*) 1 patch TRANSDERM DAILY [facility] Last Admin: 06/25/17 11:17 Dose: Not Given Omeprazole (Prilosec Cap*) 20 mg PO DAILY@0730 [facility] Last Admin: 06/25/17 09:54 Dose: 20 mg Pharmacy Profile Note (Nicotine Patch Removal Note*) 1 note PATCH OFF 2100 [facility] Last Admin: 06/24/17 20:07 Dose: Not Given Sertraline HCl (Zoloft*) 150 mg PO DAILY [facility] Last Admin: 06/25/17 09:50 Dose: 150 mg Vital Signs 06/24/17 06/24/17 06/24/17 15:18 19:48 20:00 Temperature 98.6 F 98.1 F Pulse Rate 97 91 Respiratory 20 20 16 Rate Blood Pressure 114/59 131/63 (mmHg) O2 Sat by Pulse 90 93 Oximetry 06/24/17 06/24/17 06/25/17 20:04 23:36 03:51 Temperature 98.3 F 98.2 F Pulse Rate 89 87 Respiratory 16 16 16 Rate Blood Pressure 128/58 144/65 (mmHg) O2 Sat by Pulse 94 92 Oximetry 06/25/17 06/25/17 06/25/17 07:53 08:00 09:48 Temperature 98.1 F Pulse Rate 95 Respiratory 20 22 22 Rate Blood Pressure 129/66 (mmHg) O2 Sat by Pulse 93 Oximetry 06/25/17 11:53 Temperature 98.1 F Pulse Rate 92 Respiratory Rate Blood Pressure 140/69 (mmHg) O2 Sat by Pulse 89 Oximetry Oxygen Devices in Use Now: None Appearance: 71 yo f in nAD, aAOx3 Eyes: No Scleral Icterus, PERRLA Ears/Nose/Mouth/Throat: NL Teeth, Lips, Gums, Mucous Membranes Moist Neck: NL Appearance and Movements; NL JVP, Trachea Midline Respiratory: Symmetrical Chest Expansion and Respiratory Effort, Clear to Auscultation Cardiovascular: NL Sounds; No Murmurs; No JVD, RRR Abdominal: NL Sounds; No Tenderness; No Distention Lymphatic: No Cervical Adenopathy Extremities: No Clubbing, Cyanosis, - - trace pedal edema b/l Skin: No Rash or Ulcers, No Nodules or Sclerosis Neurological: Alert and Oriented x 3, - - R leg at 4+/5 Result Diagrams: 06/25/17 05:07 06/25/17 05:06 Additional Lab and Data: Lab Results 06/23/17 06/23/17 06/23/17 Range/Units 13:41 13:41 13:41 WBC 19.0 H (3.5-10.8) 10^3/ul RBC 4.73 (4.0-5.4) 10^6/ul Hgb 15.0 (12.0-16.0) g/dl Hct 46 (35-47) % MCV 96 (80-97) fL MCH 32 H (27-31) pg MCHC 33 (31-36) g/dl RDW 14 (10.5-15) % Plt Count 605 H D (150-450) 10^3/ul MPV 8 (7.4-10.4) um3 Neut % (Auto) 74.5 (38-83) % Lymph % (Auto) 14.4 L (25-47) % [place] % (Auto) 8.9 (1-9) % Eos % (Auto) 1.7 (0-6) % Baso % (Auto) 0.5 (0-2) % Absolute Neuts (auto) 14.2 H (1.5-7.7) 10^3/ul Absolute Lymphs (auto) 2.7 (1.0-4.8) 10^3/ul Absolute Monos (auto) 1.7 H (0-0.8) 10^3/ul Absolute Eos (auto) 0.3 (0-0.6) 10^3/ul Absolute Basos (auto) 0.1 (0-0.2) 10^3/ul Absolute Nucleated RBC 0.01 10^3/ul Nucleated RBC % 0 INR (Anticoag Therapy) 0.84 L (0.89-1.11) APTT 33.5 (26.0-36.3) seconds Sodium 139 (133-145) mmol/L Potassium 3.0 L (3.5-5.0) mmol/L Chloride 99 L (101-111) mmol/L Carbon Dioxide 32 (22-32) mmol/L Anion Gap 8 (2-11) mmol/L BUN 21 (6-24) mg/dL Creatinine 0.72 (0.51-0.95) mg/dL Est GFR ( Amer) 102.1 (>60) Est GFR (Non-Af Amer) 79.4 (>60) BUN/Creatinine Ratio 29.2 H (8-20) Glucose 101 H (70-100) mg/dL Lactic Acid (0.5-2.0) mmol/L Calcium 9.7 (8.6-10.3) mg/dL Magnesium 1.7 L (1.9-2.7) mg/dL Total Bilirubin 0.50 (0.2-1.0) mg/dL AST 13 (13-39) U/L ALT 14 (7-52) U/L Alkaline Phosphatase 81 (34-104) U/L Ammonia (16-53) mol/L Total Creatine Kinase 27 (10-223) U/L CK-MB (CK-2) 1.7 (0.6-6.3) ng/mL Troponin I 0.03 (<0.04) ng/mL C-Reactive Protein 59.25 H (< 5.00) mg/L B-Natriuretic Peptide ( - 100) pg/mL Total Protein 7.0 (6.4-8.9) g/dL Albumin 3.5 (3.2-5.2) g/dL Globulin 3.5 (2-4) g/dL Albumin/Globulin Ratio 1.0 (1-3) Lipase 28 (11.0-82.0) U/L TSH 4.50 (0.34-5.60) mcIU/mL Acetaminophen < 15 mcg/mL Serum Alcohol < 10 (<10) mg/dL 06/23/17 06/23/17 Range/Units 13:41 13:41 WBC (3.5-10.8) 10^3/ul RBC (4.0-5.4) 10^6/ul Hgb (12.0-16.0) g/dl Hct (35-47) % MCV (80-97) fL MCH (27-31) pg MCHC (31-36) g/dl RDW (10.5-15) % Plt Count (150-450) 10^3/ul MPV (7.4-10.4) um3 Neut % (Auto) (38-83) % Lymph % (Auto) (25-47) % [place] % (Auto) (1-9) % Eos % (Auto) (0-6) % Baso % (Auto) (0-2) % Absolute Neuts (auto) (1.5-7.7) 10^3/ul Absolute Lymphs (auto) (1.0-4.8) 10^3/ul Absolute Monos (auto) (0-0.8) 10^3/ul Absolute Eos (auto) (0-0.6) 10^3/ul Absolute Basos (auto) (0-0.2) 10^3/ul Absolute Nucleated RBC 10^3/ul Nucleated RBC % INR (Anticoag Therapy) (0.89-1.11) APTT (26.0-36.3) seconds Sodium (133-145) mmol/L Potassium (3.5-5.0) mmol/L Chloride (101-111) mmol/L Carbon Dioxide (22-32) mmol/L Anion Gap (2-11) mmol/L BUN (6-24) mg/dL Creatinine (0.51-0.95) mg/dL Est GFR ( Amer) (>60) Est GFR (Non-Af Amer) (>60) BUN/Creatinine Ratio (8-20) Glucose (70-100) mg/dL Lactic Acid 1.4 (0.5-2.0) mmol/L Calcium (8.6-10.3) mg/dL Magnesium (1.9-2.7) mg/dL Total Bilirubin (0.2-1.0) mg/dL AST (13-39) U/L ALT (7-52) U/L Alkaline Phosphatase (34-104) U/L Ammonia 34 (16-53) mol/L Total Creatine Kinase (10-223) U/L CK-MB (CK-2) (0.6-6.3) ng/mL Troponin I (<0.04) ng/mL C-Reactive Protein (< 5.00) mg/L B-Natriuretic Peptide 339 H ( - 100) pg/mL Total Protein (6.4-8.9) g/dL Albumin (3.2-5.2) g/dL Globulin (2-4) g/dL Albumin/Globulin Ratio (1-3) Lipase (11.0-82.0) U/L TSH (0.34-5.60) mcIU/mL Acetaminophen mcg/mL Serum Alcohol (<10) mg/dL Assess/Plan/Problems-Billing Assessment: 71 yo F with h/o HTN, hypothyroidism, smoking presents with falls. Pt has h/o T12 compression fx in 11/2015 - Patient Problems (1) T12 compression fracture Comment: With resultant spinal stenosis, r leg weakness and paresthesis. D/w Dr. Frank (neurosurgery inside sales professional) on 06/24/17. OK with PT/OT as tolerated, but cont neurochecks Q6H, if pt develops new deficit she may need to be placed on bedrest, but for now can ambulate with assist till TLSO brace arrives(ordered) (2) Leukocytosis Comment: - suspect reactive stress respone. no obvious signs of infection. (3) Hypothyroid Comment: TSH WNLs, continue synthroid (4) HTN (hypertension) Comment: continue home medications losartan and cardizem (5) Tobacco abuse Comment: nicotine replacement tx provided (6) DVT prophylaxis Comment: HSQ Status and Disposition: inpatient. Awaiting neurosurgery consult on Tuesday
[2017-06-25] MEDS: Nicotine Patch Removal NOTE PATCH OFF SCH (22:09)
[2017-06-26] MEDS: Levothyroxine TAB* 25 MCG TAB PO SCH (06:18)
[2017-06-26] MEDS: Ibuprofen TAB* 600 MG PO PRN ×3 (06:18→19:59)
[2017-06-26] MEDS: Heparin VIAL(*) 5000 UNITS/ML VIAL (FIVE THOUSAND) SUBCUT SCH ×3 (06:19→21:50)
[2017-06-26] MEDS: Mometasone/Formoter 200/5 MDI INH SCH ×2 (07:04→19:58)
[2017-06-26] MEDS: Cyanocobalamin TAB* 500 MCG PO SCH (09:27)
[2017-06-26] MEDS: Losartan TAB* 25 MG PO SCH (09:28)
[2017-06-26] MEDS: Ascorbic Acid TAB* 500 MG PO SCH (09:28)
[2017-06-26] MEDS: Cholecalciferol TAB* 1000 UNITS PO SCH (09:28)
[2017-06-26] MEDS: Diltiazem CD CAP* 240 MG PO SCH (09:28)
[2017-06-26] MEDS: Omeprazole CAP* 20 MG PO SCH (09:28)
[2017-06-26] MEDS: Hydrochlorothiazide TAB* 25 MG PO SCH (09:28)
[2017-06-26] MEDS: Atorvastatin* 20 MG TAB PO SCH (09:29)
[2017-06-26] MEDS: Gabapentin CAP(*) 300 MG PO SCH ×3 (09:29→21:48)
[2017-06-26] MEDS: Magnesium Oxide TAB* 400 MG PO SCH (09:30)
[2017-06-26] MEDS: Famotidine TAB* 20 MG PO SCH ×2 (09:30→21:48)
[2017-06-26] MEDS: Sertraline* 100 MG TAB PO SCH (09:31)
[2017-06-26] MEDS: Nicotine PATCH 14 MG/24 HR* PATCH TRANSDERM SCH (09:38)
[2017-06-26] MEDS: CYCLOSPORINE 0.05% BOTH EYES SCH ×2 (09:38→21:48)
[2017-06-26] MEDS: Fluticasone NASAL SPRAY 50MCG* 16 gm SPRAY BTL BOTH NARES SCH (09:39)
--- NOTE | 2017-06-26 14:06 | PN ---
Subjective Date of Service: 06/26/17 Interval History: No new complaints. Still has R leg pain -worse in aM Objective Active Medications: Ascorbic Acid (Vitamin C Tab*) 1,000 mg PO DAILY [facility] Last Admin: 06/26/17 09:28 Dose: 1,000 mg Atorvastatin Calcium (Lipitor*) 20 mg PO DAILY [facility] Last Admin: 06/26/17 09:29 Dose: 20 mg Cholecalciferol (Vitamin D Tab*) 1,000 units PO DAILY [facility] Last Admin: 06/26/17 09:28 Dose: 1,000 units Cyanocobalamin (Vitamin B12 Tab*) 500 mcg PO DAILY [facility] Last Admin: 06/26/17 09:27 Dose: 500 mcg Cyclosporine (Restasis 0.05% [facility]) 1 drop BOTH EYES Q12HR [facility] PRN Reason: Protocol Last Admin: 06/26/17 09:38 Dose: 1 drop Diltiazem HCl (Cardizem Cd Cap*) 240 mg PO DAILY [facility] Last Admin: 06/26/17 09:28 Dose: 240 mg Famotidine (Pepcid Tab*) 40 mg PO BID [facility] Last Admin: 06/26/17 09:30 Dose: 40 mg Fluticasone Propionate (Flonase Nasal [place] 50mcg*) 2 spray BOTH NARES DAILY [facility] Last Admin: 06/26/17 09:39 Dose: 2 spray Gabapentin (Neurontin Cap(*)) 600 mg PO TID [facility] Last Admin: 06/26/17 13:51 Dose: 600 mg Heparin Sodium (Porcine) (Heparin Vial(*)) 5,000 units SUBCUT Q8HR [facility] Last Admin: 06/26/17 13:52 Dose: 5,000 units Hydrochlorothiazide (Hydrodiuril Tab*) 25 mg PO QAM [facility] Last Admin: 06/26/17 09:28 Dose: 25 mg Ibuprofen (Motrin Tab*) 600 mg PO Q6H PRN PRN Reason: PAIN Last Admin: 06/26/17 13:51 Dose: 600 mg Levothyroxine Sodium (Synthroid Tab*) 37.5 mcg PO DAILY@0600 [facility] Last Admin: 06/26/17 06:18 Dose: 37.5 mcg Losartan Potassium (Cozaar Tab*) 100 mg PO DAILY [facility] Last Admin: 06/26/17 09:28 Dose: 100 mg Magnesium Oxide (Magox 400 Tab*) 800 mg PO DAILY [facility] Last Admin: 06/26/17 09:30 Dose: 800 mg Mometasone Furoate/Formoterol Fumar (Dulera 200/5 Mdi*) 2 puff INH BID [facility] Last Admin: 06/26/17 07:04 Dose: Not Given Nicotine (Nicotine Patch 14 Mg/24 Hr*) 1 patch TRANSDERM DAILY [facility] Last Admin: 06/26/17 09:38 Dose: Not Given Omeprazole (Prilosec Cap*) 20 mg PO DAILY@0730 [facility] Last Admin: 06/26/17 09:28 Dose: 20 mg Pharmacy Profile Note (Nicotine Patch Removal Note*) 1 note PATCH OFF 2100 [facility] Last Admin: 06/25/17 22:09 Dose: Not Given Sertraline HCl (Zoloft*) 150 mg PO DAILY [facility] Last Admin: 06/26/17 09:31 Dose: 150 mg Vital Signs 06/25/17 06/25/17 06/25/17 14:49 16:30 16:47 Temperature 97.5 F Pulse Rate 81 Respiratory 12 18 16 Rate Blood Pressure 134/51 (mmHg) O2 Sat by Pulse 94 Oximetry 06/25/17 06/25/17 06/25/17 18:51 19:35 22:06 Temperature 97.9 F Pulse Rate 87 Respiratory 18 18 16 Rate Blood Pressure 139/67 (mmHg) O2 Sat by Pulse 91 Oximetry 06/25/17 06/26/17 06/26/17 23:50 00:06 03:46 Temperature 97.6 F 97.2 F Pulse Rate 87 83 Respiratory 18 16 20 Rate Blood Pressure 134/55 125/67 (mmHg) O2 Sat by Pulse 91 93 Oximetry 06/26/17 06/26/17 06/26/17 07:42 08:00 09:29 Temperature 98.2 F Pulse Rate 89 Respiratory 20 20 16 Rate Blood Pressure 146/67 (mmHg) O2 Sat by Pulse 94 Oximetry 06/26/17 06/26/17 11:14 13:51 Temperature 98.0 F Pulse Rate 89 Respiratory 18 18 Rate Blood Pressure 141/63 (mmHg) O2 Sat by Pulse 92 Oximetry Oxygen Devices in Use Now: None Appearance: 71 yo F in NAD, AAOx3 Eyes: No Scleral Icterus, PERRLA Ears/Nose/Mouth/Throat: NL Teeth, Lips, Gums, Mucous Membranes Moist Neck: NL Appearance and Movements; NL JVP, Trachea Midline Respiratory: Symmetrical Chest Expansion and Respiratory Effort, Clear to Auscultation Cardiovascular: NL Sounds; No Murmurs; No JVD, RRR Abdominal: NL Sounds; No Tenderness; No Distention Lymphatic: No Cervical Adenopathy Extremities: No Edema, No Clubbing, Cyanosis Skin: No Rash or Ulcers, No Nodules or Sclerosis Neurological: Alert and Oriented x 3, - - R LE at 4+/5 Result Diagrams: 06/25/17 05:07 06/25/17 05:06 Additional Lab and Data: Lab Results 06/23/17 06/23/17 06/23/17 Range/Units 13:41 13:41 13:41 WBC 19.0 H (3.5-10.8) 10^3/ul RBC 4.73 (4.0-5.4) 10^6/ul Hgb 15.0 (12.0-16.0) g/dl Hct 46 (35-47) % MCV 96 (80-97) fL MCH 32 H (27-31) pg MCHC 33 (31-36) g/dl RDW 14 (10.5-15) % Plt Count 605 H D (150-450) 10^3/ul MPV 8 (7.4-10.4) um3 Neut % (Auto) 74.5 (38-83) % Lymph % (Auto) 14.4 L (25-47) % [place] % (Auto) 8.9 (1-9) % Eos % (Auto) 1.7 (0-6) % Baso % (Auto) 0.5 (0-2) % Absolute Neuts (auto) 14.2 H (1.5-7.7) 10^3/ul Absolute Lymphs (auto) 2.7 (1.0-4.8) 10^3/ul Absolute Monos (auto) 1.7 H (0-0.8) 10^3/ul Absolute Eos (auto) 0.3 (0-0.6) 10^3/ul Absolute Basos (auto) 0.1 (0-0.2) 10^3/ul Absolute Nucleated RBC 0.01 10^3/ul Nucleated RBC % 0 INR (Anticoag Therapy) 0.84 L (0.89-1.11) APTT 33.5 (26.0-36.3) seconds Sodium 139 (133-145) mmol/L Potassium 3.0 L (3.5-5.0) mmol/L Chloride 99 L (101-111) mmol/L Carbon Dioxide 32 (22-32) mmol/L Anion Gap 8 (2-11) mmol/L BUN 21 (6-24) mg/dL Creatinine 0.72 (0.51-0.95) mg/dL Est GFR ( Amer) 102.1 (>60) Est GFR (Non-Af Amer) 79.4 (>60) BUN/Creatinine Ratio 29.2 H (8-20) Glucose 101 H (70-100) mg/dL Lactic Acid (0.5-2.0) mmol/L Calcium 9.7 (8.6-10.3) mg/dL Magnesium 1.7 L (1.9-2.7) mg/dL Total Bilirubin 0.50 (0.2-1.0) mg/dL AST 13 (13-39) U/L ALT 14 (7-52) U/L Alkaline Phosphatase 81 (34-104) U/L Ammonia (16-53) mol/L Total Creatine Kinase 27 (10-223) U/L CK-MB (CK-2) 1.7 (0.6-6.3) ng/mL Troponin I 0.03 (<0.04) ng/mL C-Reactive Protein 59.25 H (< 5.00) mg/L B-Natriuretic Peptide ( - 100) pg/mL Total Protein 7.0 (6.4-8.9) g/dL Albumin 3.5 (3.2-5.2) g/dL Globulin 3.5 (2-4) g/dL Albumin/Globulin Ratio 1.0 (1-3) Lipase 28 (11.0-82.0) U/L TSH 4.50 (0.34-5.60) mcIU/mL Acetaminophen < 15 mcg/mL Serum Alcohol < 10 (<10) mg/dL 06/23/17 06/23/17 Range/Units 13:41 13:41 WBC (3.5-10.8) 10^3/ul RBC (4.0-5.4) 10^6/ul Hgb (12.0-16.0) g/dl Hct (35-47) % MCV (80-97) fL MCH (27-31) pg MCHC (31-36) g/dl RDW (10.5-15) % Plt Count (150-450) 10^3/ul MPV (7.4-10.4) um3 Neut % (Auto) (38-83) % Lymph % (Auto) (25-47) % [place] % (Auto) (1-9) % Eos % (Auto) (0-6) % Baso % (Auto) (0-2) % Absolute Neuts (auto) (1.5-7.7) 10^3/ul Absolute Lymphs (auto) (1.0-4.8) 10^3/ul Absolute Monos (auto) (0-0.8) 10^3/ul Absolute Eos (auto) (0-0.6) 10^3/ul Absolute Basos (auto) (0-0.2) 10^3/ul Absolute Nucleated RBC 10^3/ul Nucleated RBC % INR (Anticoag Therapy) (0.89-1.11) APTT (26.0-36.3) seconds Sodium (133-145) mmol/L Potassium (3.5-5.0) mmol/L Chloride (101-111) mmol/L Carbon Dioxide (22-32) mmol/L Anion Gap (2-11) mmol/L BUN (6-24) mg/dL Creatinine (0.51-0.95) mg/dL Est GFR ( Amer) (>60) Est GFR (Non-Af Amer) (>60) BUN/Creatinine Ratio (8-20) Glucose (70-100) mg/dL Lactic Acid 1.4 (0.5-2.0) mmol/L Calcium (8.6-10.3) mg/dL Magnesium (1.9-2.7) mg/dL Total Bilirubin (0.2-1.0) mg/dL AST (13-39) U/L ALT (7-52) U/L Alkaline Phosphatase (34-104) U/L Ammonia 34 (16-53) mol/L Total Creatine Kinase (10-223) U/L CK-MB (CK-2) (0.6-6.3) ng/mL Troponin I (<0.04) ng/mL C-Reactive Protein (< 5.00) mg/L B-Natriuretic Peptide 339 H ( - 100) pg/mL Total Protein (6.4-8.9) g/dL Albumin (3.2-5.2) g/dL Globulin (2-4) g/dL Albumin/Globulin Ratio (1-3) Lipase (11.0-82.0) U/L TSH (0.34-5.60) mcIU/mL Acetaminophen mcg/mL Serum Alcohol (<10) mg/dL Assess/Plan/Problems-Billing Assessment: 71 yo F with h/o HTN, hypothyroidism, smoking presents with falls. Pt has h/o T12 compression fx in 11/2015 - Patient Problems (1) T12 compression fracture Comment: With resultant spinal stenosis, R leg weakness and paresthesis. D/w Dr. Frank (neurosurgery slot floorperson) on 06/24/17. OK with PT/OT as tolerated, but cont neurochecks Q6H, if pt develops new deficit she may need to be placed on bedrest, but for now can ambulate with assist till TLSO brace arrives(ordered) (2) Leukocytosis Comment: - suspect reactive stress respone. no obvious signs of infection. (3) Hypothyroid Comment: TSH WNLs, continue synthroid (4) HTN (hypertension) Comment: continue home medications losartan and cardizem (5) Tobacco abuse Comment: nicotine replacement tx provided (6) DVT prophylaxis Comment: HSQ Status and Disposition: inpatient. Awaiting neurosurgery consult on Tuesday
[2017-06-26] MEDS ORDERED: Loperamide CAP* 2 MG PO ONE ×2 (15:41→20:16)
[2017-06-26] MEDS: Nicotine Patch Removal NOTE PATCH OFF SCH (21:50)
[2017-06-27] MEDS: Ibuprofen TAB* 600 MG PO PRN ×4 (01:56→22:16)
[2017-06-27] MEDS: Levothyroxine TAB* 25 MCG TAB PO SCH (06:34)
[2017-06-27] MEDS: Heparin VIAL(*) 5000 UNITS/ML VIAL (FIVE THOUSAND) SUBCUT SCH ×3 (06:34→22:10)
[2017-06-27] MEDS: Mometasone/Formoter 200/5 MDI INH SCH ×2 (08:02→20:17)
[2017-06-27] MEDS: Nicotine PATCH 14 MG/24 HR* PATCH TRANSDERM SCH (08:39)
[2017-06-27] MEDS: Atorvastatin* 20 MG TAB PO SCH (08:40)
[2017-06-27] MEDS: Ascorbic Acid TAB* 500 MG PO SCH (08:40)
[2017-06-27] MEDS: Omeprazole CAP* 20 MG PO SCH (08:40)
[2017-06-27] MEDS: Losartan TAB* 25 MG PO SCH (08:41)
[2017-06-27] MEDS: Magnesium Oxide TAB* 400 MG PO SCH (08:41)
[2017-06-27] MEDS: Hydrochlorothiazide TAB* 25 MG PO SCH (08:41)
[2017-06-27] MEDS: Diltiazem CD CAP* 240 MG PO SCH (08:41)
[2017-06-27] MEDS: Gabapentin CAP(*) 300 MG PO SCH ×3 (08:41→22:08)
[2017-06-27] MEDS: Famotidine TAB* 20 MG PO SCH ×2 (08:42→22:08)
[2017-06-27] MEDS: Cholecalciferol TAB* 1000 UNITS PO SCH (08:42)
[2017-06-27] MEDS: Cyanocobalamin TAB* 500 MCG PO SCH (08:42)
[2017-06-27] MEDS: Fluticasone NASAL SPRAY 50MCG* 16 gm SPRAY BTL BOTH NARES SCH (08:43)
[2017-06-27] MEDS: Sertraline* 100 MG TAB PO SCH (08:44)
[2017-06-27] MEDS: CYCLOSPORINE 0.05% BOTH EYES SCH ×2 (08:45→22:07)
--- NOTE | 2017-06-27 17:18 | PN ---
Subjective Date of Service: 06/27/17 Interval History: Pt got her TLSO brace today. Feels well Objective Active Medications: Ascorbic Acid (Vitamin C Tab*) 1,000 mg PO DAILY [facility] Last Admin: 06/27/17 08:40 Dose: 1,000 mg Atorvastatin Calcium (Lipitor*) 20 mg PO DAILY [facility] Last Admin: 06/27/17 08:40 Dose: 20 mg Cholecalciferol (Vitamin D Tab*) 1,000 units PO DAILY [facility] Last Admin: 06/27/17 08:42 Dose: 1,000 units Cyanocobalamin (Vitamin B12 Tab*) 500 mcg PO DAILY [facility] Last Admin: 06/27/17 08:42 Dose: 500 mcg Cyclosporine (Restasis 0.05% [facility]) 1 drop BOTH EYES Q12HR [facility] PRN Reason: Protocol Last Admin: 06/27/17 08:45 Dose: 1 drop Diltiazem HCl (Cardizem Cd Cap*) 240 mg PO DAILY [facility] Last Admin: 06/27/17 08:41 Dose: 240 mg Famotidine (Pepcid Tab*) 40 mg PO BID [facility] Last Admin: 06/27/17 08:42 Dose: 40 mg Fluticasone Propionate (Flonase Nasal [place] 50mcg*) 2 spray BOTH NARES DAILY [facility] Last Admin: 06/27/17 08:43 Dose: 2 spray Gabapentin (Neurontin Cap(*)) 600 mg PO TID [facility] Last Admin: 06/27/17 14:56 Dose: 600 mg Heparin Sodium (Porcine) (Heparin Vial(*)) 5,000 units SUBCUT Q8HR [facility] Last Admin: 06/27/17 14:57 Dose: 5,000 units Hydrochlorothiazide (Hydrodiuril Tab*) 25 mg PO QAM [facility] Last Admin: 06/27/17 08:41 Dose: 25 mg Ibuprofen (Motrin Tab*) 600 mg PO Q6H PRN PRN Reason: PAIN Last Admin: 06/27/17 14:55 Dose: 600 mg Levothyroxine Sodium (Synthroid Tab*) 37.5 mcg PO DAILY@0600 [facility] Last Admin: 06/27/17 06:34 Dose: 37.5 mcg Losartan Potassium (Cozaar Tab*) 100 mg PO DAILY [facility] Last Admin: 06/27/17 08:41 Dose: 100 mg Magnesium Oxide (Magox 400 Tab*) 800 mg PO DAILY [facility] Last Admin: 06/27/17 08:41 Dose: 800 mg Mometasone Furoate/Formoterol Fumar (Dulera 200/5 Mdi*) 2 puff INH BID [facility] Last Admin: 06/27/17 08:02 Dose: Not Given Nicotine (Nicotine Patch 14 Mg/24 Hr*) 1 patch TRANSDERM DAILY [facility] Last Admin: 06/27/17 08:39 Dose: Not Given Omeprazole (Prilosec Cap*) 20 mg PO DAILY@0730 [facility] Last Admin: 06/27/17 08:40 Dose: 20 mg Pharmacy Profile Note (Nicotine Patch Removal Note*) 1 note PATCH OFF 2100 [facility] Last Admin: 06/26/17 21:50 Dose: Not Given Sertraline HCl (Zoloft*) 150 mg PO DAILY [facility] Last Admin: 06/27/17 08:44 Dose: 150 mg Vital Signs 06/26/17 06/26/17 06/26/17 18:05 19:40 20:56 Temperature 98.2 F 98.2 F Pulse Rate 95 95 Respiratory 18 19 19 Rate Blood Pressure 149/81 149/81 (mmHg) O2 Sat by Pulse 91 91 Oximetry 06/26/17 06/26/17 06/27/17 21:48 23:48 03:38 Temperature 98.3 F 98.1 F Pulse Rate 88 88 Respiratory 18 19 17 Rate Blood Pressure 129/54 149/62 (mmHg) O2 Sat by Pulse 89 86 Oximetry 06/27/17 06/27/17 06/27/17 04:49 07:37 08:41 Temperature 97.5 F Pulse Rate 83 80 Respiratory 18 14 Rate Blood Pressure 138/80 (mmHg) O2 Sat by Pulse 97 97 Oximetry 06/27/17 14:56 Temperature Pulse Rate Respiratory 16 Rate Blood Pressure (mmHg) O2 Sat by Pulse Oximetry Oxygen Devices in Use Now: None Appearance: 71 yo f in nAD, aAOx3 Eyes: No Scleral Icterus, PERRLA Ears/Nose/Mouth/Throat: NL Teeth, Lips, Gums, Mucous Membranes Moist Neck: NL Appearance and Movements; NL JVP, Trachea Midline Respiratory: Symmetrical Chest Expansion and Respiratory Effort, - - coarse breath sounds b/l Cardiovascular: NL Sounds; No Murmurs; No JVD, RRR Abdominal: NL Sounds; No Tenderness; No Distention Lymphatic: No Cervical Adenopathy Extremities: No Edema Skin: No Rash or Ulcers, No Nodules or Sclerosis Neurological: Alert and Oriented x 3, - - R LE weakness at +4/5 Result Diagrams: 06/25/17 05:07 06/25/17 05:06 Additional Lab and Data: Lab Results 06/23/17 06/23/17 06/23/17 Range/Units 13:41 13:41 13:41 WBC 19.0 H (3.5-10.8) 10^3/ul RBC 4.73 (4.0-5.4) 10^6/ul Hgb 15.0 (12.0-16.0) g/dl Hct 46 (35-47) % MCV 96 (80-97) fL MCH 32 H (27-31) pg MCHC 33 (31-36) g/dl RDW 14 (10.5-15) % Plt Count 605 H D (150-450) 10^3/ul MPV 8 (7.4-10.4) um3 Neut % (Auto) 74.5 (38-83) % Lymph % (Auto) 14.4 L (25-47) % [place] % (Auto) 8.9 (1-9) % Eos % (Auto) 1.7 (0-6) % Baso % (Auto) 0.5 (0-2) % Absolute Neuts (auto) 14.2 H (1.5-7.7) 10^3/ul Absolute Lymphs (auto) 2.7 (1.0-4.8) 10^3/ul Absolute Monos (auto) 1.7 H (0-0.8) 10^3/ul Absolute Eos (auto) 0.3 (0-0.6) 10^3/ul Absolute Basos (auto) 0.1 (0-0.2) 10^3/ul Absolute Nucleated RBC 0.01 10^3/ul Nucleated RBC % 0 INR (Anticoag Therapy) 0.84 L (0.89-1.11) APTT 33.5 (26.0-36.3) seconds Sodium 139 (133-145) mmol/L Potassium 3.0 L (3.5-5.0) mmol/L Chloride 99 L (101-111) mmol/L Carbon Dioxide 32 (22-32) mmol/L Anion Gap 8 (2-11) mmol/L BUN 21 (6-24) mg/dL Creatinine 0.72 (0.51-0.95) mg/dL Est GFR ( Amer) 102.1 (>60) Est GFR (Non-Af Amer) 79.4 (>60) BUN/Creatinine Ratio 29.2 H (8-20) Glucose 101 H (70-100) mg/dL Lactic Acid (0.5-2.0) mmol/L Calcium 9.7 (8.6-10.3) mg/dL Magnesium 1.7 L (1.9-2.7) mg/dL Total Bilirubin 0.50 (0.2-1.0) mg/dL AST 13 (13-39) U/L ALT 14 (7-52) U/L Alkaline Phosphatase 81 (34-104) U/L Ammonia (16-53) mol/L Total Creatine Kinase 27 (10-223) U/L CK-MB (CK-2) 1.7 (0.6-6.3) ng/mL Troponin I 0.03 (<0.04) ng/mL C-Reactive Protein 59.25 H (< 5.00) mg/L B-Natriuretic Peptide ( - 100) pg/mL Total Protein 7.0 (6.4-8.9) g/dL Albumin 3.5 (3.2-5.2) g/dL Globulin 3.5 (2-4) g/dL Albumin/Globulin Ratio 1.0 (1-3) Lipase 28 (11.0-82.0) U/L TSH 4.50 (0.34-5.60) mcIU/mL Acetaminophen < 15 mcg/mL Serum Alcohol < 10 (<10) mg/dL 06/23/17 06/23/17 Range/Units 13:41 13:41 WBC (3.5-10.8) 10^3/ul RBC (4.0-5.4) 10^6/ul Hgb (12.0-16.0) g/dl Hct (35-47) % MCV (80-97) fL MCH (27-31) pg MCHC (31-36) g/dl RDW (10.5-15) % Plt Count (150-450) 10^3/ul MPV (7.4-10.4) um3 Neut % (Auto) (38-83) % Lymph % (Auto) (25-47) % [place] % (Auto) (1-9) % Eos % (Auto) (0-6) % Baso % (Auto) (0-2) % Absolute Neuts (auto) (1.5-7.7) 10^3/ul Absolute Lymphs (auto) (1.0-4.8) 10^3/ul Absolute Monos (auto) (0-0.8) 10^3/ul Absolute Eos (auto) (0-0.6) 10^3/ul Absolute Basos (auto) (0-0.2) 10^3/ul Absolute Nucleated RBC 10^3/ul Nucleated RBC % INR (Anticoag Therapy) (0.89-1.11) APTT (26.0-36.3) seconds Sodium (133-145) mmol/L Potassium (3.5-5.0) mmol/L Chloride (101-111) mmol/L Carbon Dioxide (22-32) mmol/L Anion Gap (2-11) mmol/L BUN (6-24) mg/dL Creatinine (0.51-0.95) mg/dL Est GFR ( Amer) (>60) Est GFR (Non-Af Amer) (>60) BUN/Creatinine Ratio (8-20) Glucose (70-100) mg/dL Lactic Acid 1.4 (0.5-2.0) mmol/L Calcium (8.6-10.3) mg/dL Magnesium (1.9-2.7) mg/dL Total Bilirubin (0.2-1.0) mg/dL AST (13-39) U/L ALT (7-52) U/L Alkaline Phosphatase (34-104) U/L Ammonia 34 (16-53) mol/L Total Creatine Kinase (10-223) U/L CK-MB (CK-2) (0.6-6.3) ng/mL Troponin I (<0.04) ng/mL C-Reactive Protein (< 5.00) mg/L B-Natriuretic Peptide 339 H ( - 100) pg/mL Total Protein (6.4-8.9) g/dL Albumin (3.2-5.2) g/dL Globulin (2-4) g/dL Albumin/Globulin Ratio (1-3) Lipase (11.0-82.0) U/L TSH (0.34-5.60) mcIU/mL Acetaminophen mcg/mL Serum Alcohol (<10) mg/dL Assess/Plan/Problems-Billing Assessment: 71 yo F with h/o HTN, hypothyroidism, smoking presents with falls. Pt has h/o T12 compression fx in 11/2015 - Patient Problems (1) T12 compression fracture Comment: With resultant spinal stenosis, R leg weakness and paresthesis. Dr. Cantu will see pt today TLSO brace in place (2) Leukocytosis Comment: - suspect reactive stress respone. no obvious signs of infection. (3) Hypothyroid Comment: TSH WNLs, continue synthroid (4) HTN (hypertension) Comment: continue home medications losartan and cardizem (5) Tobacco abuse Comment: nicotine replacement tx provided (6) DVT prophylaxis Comment: HSQ Status and Disposition: inpatient. Awaiting neurosurgery consult
--- NOTE | 2017-06-27 18:39 | CONSULT ---
Consult Consult: Neurosurgery Consult Date of consult: 06/27/17 Date of admission: 06/23/17 Reason for consult: T12 compression fracture Referring provider: Pretty Galarza MD HPI: History obtained from the patient. This is a 71 year old female with past medical history significant for HTN, LBBB, GERD and Sjogren's who presented to the [facility] ED after experiencing several recent falls. She states that this began in October when she fell and was diagnosed with a compression fracture of T12. She was treated conservatively with physical therapy and medications through rehab at [facility]. She states that she was treated with Vicodin which caused altered mental status resulting in evaluation at [facility]. However, she continued to experience significant back pain and pain into the right side of the groin. In April, she began experiencing right lower extremity pain in the posterior thigh and down into the lower leg, sparing the foot. This pain has continued to worsen since onset. She also reports occasional numbness in the same distribution and weakness of the RLE with walking causing her to use a walker at home. The RLE pain is constant and worse with sitting. The low back pain is worse with walking and bending. She is most comfortable laying supine. She has continued to experience falls and is unable to attribute them to a specific cause whether it be weakness, dizziness, severe pain, etc. She states that sometimes her legs just give out and she falls backward. She reports urinary incontinence because she is unable to get to the restroom fast enough. She denies bowel incontinence. She denies numbness, tingling, weakness and pain in the left lower extremity. She has been treated with TLSO while admitted which she reports has been minimally effective in improving pain. Past medical history: 1. HTN 2. GERD 3. LBBB 4. Sjogren's Syndrome 5. Hypothyroidism 6. Hypercholesterolemia 7. Basal cell skin cancer Past surgical history: 1. ACD F- 1999 2. Right leg fracture repair 2001, bone graft 2002 3. Tubal ligation *She has a history of adverse reaction to general anesthesia with severe vomiting for several days post-operatively. Home medications: 1. Ascorbic Acid TAB* [Vitamin C TAB*] 1,000 mg PO DAILY 02/19/16 [History Confirmed 06/23/17] 2. Cod Liver Oil 1 cap PO DAILY 02/19/16 [History Confirmed 06/23/17] 3. Cyanocobalamin TAB* [Vitamin B12 TAB*] 500 mcg PO DAILY 02/19/16 [History Confirmed 06/23/17] 4. Hydrochlorothiazide TAB* [Hydrodiuril TAB*] 25 mg PO QAM 02/19/16 [History Confirmed 06/23/17] 5. Pantoprazole TAB (NF) [Protonix TAB (NF)] 40 mg PO DAILY 02/19/16 [History Confirmed 06/23/17] 6. celeCOXIB CAP* [Celebrex CAP*] 100 mg PO BID 02/19/16 [History Confirmed 08/30] 7. Famotidine TAB* [Pepcid 20 MG TAB*] 40 mg PO BID 10/25/16 [History Confirmed 06/23/17] 8. Gabapentin CAP(*) [Neurontin 300 CAP(*)] 600 mg PO TID cap 10/30/16 [Rx Confirmed 06/23/17] 9. Atorvastatin* [Lipitor*] 20 mg PO DAILY 06/23/17 [History Confirmed 06/23/17] 10. Beclomethasone 80 MCG MDI(NF) [Qvar 80 MCG MDI(NF)] 1 puff INH BID 06/23/17 [History Confirmed 06/23/17] 11. Calcium Carbonate [Calcium 600] 600 mg PO TID 06/23/17 [History Confirmed ] 12. Cholecalciferol TAB* [Vitamin D TAB*] 1,000 unit PO DAILY 06/23/17 [History Confirmed 06/23/17] 13. Cyclosporine 0.05% OPHTH (NF) [Restasis 0.05% OPHTH] 1 drop BOTH EYES Q12HR 06/23/17 [History Confirmed 06/23/17] 14. Diclofenac 1% GEL (NF) [Voltaren 1% GEL (NF)] 1 applic TOPICAL BID PRN 06/23 [History Confirmed 06/23/17] 15. Diltiazem HCl Coated Beads [Cardizem LA] 240 mg PO DAILY 06/23/17 [History Confirmed 06/23/17] 16. Epinephrine [Epipen 2-Dario] 0.3 mg IM ONCE PRN 06/23/17 [History Confirmed ] 17. Flaxseed (Linseed) [Flaxseed Oil Maximum Stre] 1 cap PO DAILY 06/23/17 [ History Confirmed 06/23/17] 18. Fluticasone NASAL SPRAY 50MCG* [Flonase NASAL SPRAY 50MCG*] 2 spray BOTH NARES DAILY 06/23/17 [History Confirmed 06/23/17] 19. Levothyroxine TAB* [Synthroid TAB*] 37.5 mcg PO QAM 06/23/17 [History Confirmed 06/23/17] 20. Losartan TAB* [Cozaar TAB*] 100 mg PO DAILY 06/23/17 [History Confirmed 08/30] 21. Melatonin (NF) [Meladox] 3 mg PO BEDTIME PRN 06/23/17 [History Confirmed 08/30] 22. Sertraline* [Zoloft*] 150 mg PO DAILY 06/23/17 [History Confirmed 06/23/17] Allergies: 1. Acetaminophen [From Vicodin] Allergy (Verified 06/16/17 18:36) Nausea 2. Bupropion [From Wellbutrin] Allergy (Verified 06/16/17 18:36) Altered Mental Status 3. Chlorpheniramine [From Decongest] Allergy (Verified 06/26/17 15:44) See Comment 4. Hydrocodone [From Vicodin] Allergy (Verified 06/16/17 18:36) Nausea 5. Iodine Allergy (Verified 06/16/17 18:36) KHOURY SKIN 6. Phenylpropanolamine [From Decongest] Allergy (Verified 06/26/17 15:44) See Comment 7. decongestants Allergy (Intermediate, Uncoded 06/16/17 18:36) hyperactivity 8. anesthesia Allergy (Uncoded 06/16/17 18:36) states becomes violently ill with vomiting 9. ENVIRONMENTAL Allergy (Uncoded 06/16/17 18:36) GI Upset ONIONS, GARLIC, SPICES; molds --nose runs Social history: This patient lives at home alone. She is a former smoker of 3/4- 1 ppd for 50-60 years. ROS: Complete ROS performed. Pertinent findings stated in HPI and all others negative. Physical exam: Vital Signs: Temp Pulse Resp BP Pulse Ox 98.1 F 78 18 120/64 95 06/27/17 15:29 06/27/17 15:29 06/27/17 15:29 06/27/17 15:29 06/27/17 15:29 General: Alert and oriented. No distress but laying somewhat uncomfortably supine in bed. HEENT: Head is normocephalic and atraumatic. PERRL, EOMI. Gross hearing intact. Moist mucus membranes. Neck: Supple, symmetric and nontender. CV: Radial pulses 2+ and equal. Pedal puses palpable. Lungs: Breathing is nonlabored. Lungs are clear. Abdomen: Unable to assess; TLSO in place. Neuro: Speech is clear and coherent. CN II-XII intact. Strength in bilateral upper extremities 5/5. Right hip flexor 3/5, otherwise strength in RLE 5/5. Strength in LLE 5/5. Sensation intact throughout. SLR negative bilaterally. Extremities: Edema bilaterally. Compression stockings in place. Imagin. MRI of the lumbar spine on 06/23/17 shows T12 compression fracture with posterior protrusion, stable compared to MRI on 04/20/17. Assessment: This is a 71 year old female who presented with worsening RLE pain in the presence of T12 compression fracture present since October 2016. Right hip flexor 3/5 weakness, strength otherwise intact. She has also failed to improve with conservative treatments over the past several months. Symptoms have worsened in the past 4 or more weeks now presenting with significant RLE weakness and pain. Treatment with surgery should be considered. We discussed transfer to [facility] in [place] for further evaluation and treatment by neurosurgeon Dr. Summers. This case has been discussed with Dr. Summers and Dr. Galarza. Dr. Summers is accepting her transfer to [facility] for surgical treatment. Plan: 1. Transfer to [facility] for further evaluation and treatment by Dr. Summers. 2. Continue TLSO 3. Continue pain management
[2017-06-27] MEDS: Nicotine Patch Removal NOTE PATCH OFF SCH (22:11)
[2017-06-28 04:52] LABS: Hematocrit 37 % (35-47); Hemoglobin 12.2 g/dl (12.0-16.0); Mean Corpuscular HGB Conc 33 g/dl (31-36); Mean Corpuscular Hemoglobin 31 pg (27-31); Mean Corpuscular Volume 94 fL (80-97); Mean Platelet Volume 8 um3 (7.4-10.4); Red Cell Distribution Width 13 % (10.5-15); White Blood Count 14.6 10^3/ul (3.5-10.8)
[2017-06-28 04:53] LABS: Comments Flag Yes
[2017-06-28] MEDS: Levothyroxine TAB* 25 MCG TAB PO SCH (06:22)
[2017-06-28] MEDS: Heparin VIAL(*) 5000 UNITS/ML VIAL (FIVE THOUSAND) SUBCUT SCH (06:24)
[2017-06-28] MEDS: Ibuprofen TAB* 600 MG PO PRN (06:26)
[2017-06-28] MEDS: Mometasone/Formoter 200/5 MDI INH SCH (07:52)
[2017-06-28] MEDS: Diltiazem CD CAP* 240 MG PO SCH (09:00)
[2017-06-28] MEDS: Omeprazole CAP* 20 MG PO SCH (09:00)
[2017-06-28] MEDS: Cyanocobalamin TAB* 500 MCG PO SCH (09:01)
[2017-06-28] MEDS: Losartan TAB* 25 MG PO SCH (09:01)
[2017-06-28] MEDS: Magnesium Oxide TAB* 400 MG PO SCH (09:01)
[2017-06-28] MEDS: Famotidine TAB* 20 MG PO SCH (09:01)
[2017-06-28] MEDS: Atorvastatin* 20 MG TAB PO SCH (09:01)
[2017-06-28] MEDS: Ascorbic Acid TAB* 500 MG PO SCH (09:01)
[2017-06-28] MEDS: Gabapentin CAP(*) 300 MG PO SCH (09:02)
[2017-06-28] MEDS: Cholecalciferol TAB* 1000 UNITS PO SCH (09:02)
[2017-06-28] MEDS: Hydrochlorothiazide TAB* 25 MG PO SCH (09:02)
[2017-06-28] MEDS: Nicotine PATCH 14 MG/24 HR* PATCH TRANSDERM SCH (09:03)
[2017-06-28] MEDS: Sertraline* 100 MG TAB PO SCH (09:03)
[2017-06-28] MEDS: CYCLOSPORINE 0.05% BOTH EYES SCH (09:03)
[2017-06-28] MEDS: Fluticasone NASAL SPRAY 50MCG* 16 gm SPRAY BTL BOTH NARES SCH (09:11)
[2017-06-28 10:38] VITALS: BP 131/64
--- NOTE | 2017-06-28 12:37 | TRS ---
CC: Dr. Swenson; Dr. Cantu; Dr. Glez from [facility] Neurosurgery; Dr. Summers from Neurosurgical Department at [facility]. * TRANSFER SUMMARY: DATE OF ADMISSION: 06/23/17 [address] OF [address]SF[facility] TO [facility]: 06/28/17 PRIMARY CARE PROVIDER: Dr. Swenson. DISCHARGE DIAGNOSIS: Spinal cord compression due to T12 compression fracture. SECONDARY DIAGNOSES: 1. The patient was a smoker as up to current admission. She uses oxygen on a p.r.n. basis at home. 2. History of anterior cervical diskectomy, osteophytectomy, and arthrodesis of C4- C5 and C5-C6. 3. Neck surgery in 2001, bone graft in 2002, tubal ligation, D and C in 1966 and 1974. 4. She has a history of hypertension. 5. Sjogren's syndrome. 6. History of insomnia. 7. History of anxiety. 8. Osteoporosis. 9. History of Ángel's thyroiditis. 10. History of hypercholesterolemia. 11. History of basal cell skin cancer. 12. History of T12 vertebral fracture and stenosis in October of 2016. 13. History of recent falls within the past 2 weeks prior to her current evaluation. CURRENT MEDICATIONS AT THE HOSPITAL: Include: 1. Vitamin C 1000 mg daily. 2. Lipitor 20 mg daily. 3. Vitamin D 1000 units daily. 4. Vitamin B12 500 mcg daily. 5. Cyclosporin 0.05% eye drops one drop to both eyes daily. 6. Diltiazem CD 240 mg daily. 7. Famotidine 40 mg b.i.d. 8. Fluticasone nasal spray 2 sprays both nostrils daily. 9. Gabapentin 600 mg 3 times a day. 10. Heparin 5000 units subcutaneously 3 times a day. 11. Hydrochlorothiazide 25 mg daily. 12. Ibuprofen 600 mg every 6 hours p.r.n. 13. Levothyroxine 37.5 mcg daily. 14. Losartan 100 mg daily. 15. Mag oxide 800 mg daily. 16. Dulera 200/5 two inhalations b.i.d. 17. Nicotine patch 14 mg daily. 18. Omeprazole 20 mg daily. 19. Zoloft 150 mg daily. LABORATORY DATA: Studies performed during the hospital stay include: On 06/28/17, white blood cell count of 14.6, hemoglobin 12.2, hematocrit of 37, platelets of 454. On 06/25/17, sodium 137, potassium of 3.6, chloride 102, carbon dioxide 30, BUN 12, creatinine 0.76, magnesium 1.8. Urinalysis was unremarkable on 06/24/17. INR was obtained on 06/23/17, it was 0.84. CONSULTATIONS FROM NEUROSURGERY: Dr. Cantu who saw the patient on 06/27/17. Dr. Glez from [facility] also discussed the case on 06/24/17. Lumbar spine MRI performed on 06/23/17. Impression: "There is multilevel degenerative change. There was stable T12 compression fracture with posterior displacement of the vertebral body abutting in the starting of the ventral spinal cord, similar to appearance of 04/20/17 MRI. More inferiorly, there are varying degrees of degenerative disk disease and degenerative changes causing central canal or neuroforaminal stenosis most severely at L4 and L5." Lumbar spine CT of 06/23/17. Impression: "Progressive fracture of the T12 vertebra with vertebra plana. Further canal compromise is noted with the EP dimension of the canal measuring 6 mm. Nerve root sleeve cysts are noted at the S1 and S2 levels." Pelvic CT obtained on 06/23/17. Impression: "No acute bony findings. No interval changes." Portable chest x-ray on 06/23/17. Impression: "No active disease." HOSPITALIZATION COURSE: Alejandrina Willoughby is a 71-year-old female who had suffered from T12 compression fracture in November of 2016, and she presented to the hospital on 06/23/17 for progressive weakness and falls. The patient also complained of lower back pain and right leg weakness. She was admitted to our facility and MRI of the spine was obtained on 06/23/17. On 06/24/17, the case was discussed with Dr. Glez from [facility] Neurosurgery Department , who recommended for the patient to be ambulated with neuro checks and be fitted for TLSO brace. The TLSO brace was delivered to the patient on 06/27/17. Until then, the patient was ambulating with the walker and had no further progression of neuro deficits, which included right leg weakness. She did not have bowel or urine incontinence, and otherwise her pain was tolerated with ibuprofen since she is allergic to most of the narcotics and requested not to use narcotics. Dr. Cantu's service saw the patient on 06/27/17 and recommended a consultation with Dr. Summers from [facility] in [place] for further evaluation of surgery. Dr. Summers was contacted on 06/28/17 and recommended an emergent transfer of this patient to [facility] ER for further evaluation of treatment. Dr. Summers also recommended that the patient be placed on bed rest and n.p.o. The patient is being transferred right now to [facility] for further evaluation and treatment. Please note that during the patient's hospital stay, she was noted to have leukocytosis, but no evidence of infection. The leukocytosis was thought to be reactive and had slowly decreased throughout her hospital stay. She also had venous Doppler studies obtained of right lower extremity, which showed no evidence of DVT. She did complain of bilateral lower extremity edema that had been ongoing for several months and was most likely due to venous stasis. It improved after NATHALIE stockings were provided. PHYSICAL EXAMINATION: At the time of discharge/transfer to [facility] include: Blood pressure of 131/64, heart rate of 86 and regular, respiratory rate 16, oxygen saturation 92% on room air, and temperature 98.3. General: The patient is a very pleasant 71-year-old female who is in no acute distress. Alert, awake , and oriented x3. HEENT: Head atraumatic, normocephalic. Eyes: Pupils are equal and reactive to light and accommodation. Oropharynx is clear. Mucosa moist. Neck: Supple. No JVD. No bruits bilaterally. Cardiovascular: Regular rate and rhythm. No murmur. Respiratory: Coarse breath sounds bilaterally. Abdomen: Soft, nontender. Bowel sounds are present in all 4 quadrants. Extremities: There is 1+ bilateral pitting pedal edema. Pulses are +2 bilaterally. There is no clubbing or cyanosis. Neuro evaluation, speech clear. Cranial nerves II through XII are grossly intact. Motor strength is decreased in the right leg at 4+/5. Motor strength in remaining extremities is 5/5. The patient ambulated with a rolling walker prior to be placed on bed rest. Please note this is a short summary of the patient's hospitalization. Please refer to further medical records for details. TIME SPENT: Approximately 40 minutes was spent on the patient's transfer. [id number]/[facility] #: [id number] [facility]
== END 2017-06-28 11:52 | disposition short-term general hospital (02) | DRG 552 ==
LOC: ED 10:44 → MEDTELE 15:01 → UNDODISIN 06-26 20:37 → MED 06-26 20:56
PROVIDERS: ADMIT Internal Medicine; ATTEND Internal Medicine
DX: S22.081A Stable burst fracture of T11-T12 vertebra, initial encounter for closed fracture (principal); Z99.81 Dependence on supplemental oxygen; M51.04 Intervertebral disc disorders with myelopathy, thoracic region; I44.7 Left bundle-branch block, unspecified; M35.00 Sjogren syndrome, unspecified; M48.04 Spinal stenosis, thoracic region; W18.30XA Fall on same level, unspecified, initial encounter; Y92.9 Unspecified place or not applicable; F17.210 Nicotine dependence, cigarettes, uncomplicated; I10 Essential (primary) hypertension; G47.00 Insomnia, unspecified; D72.829 Elevated white blood cell count, unspecified; F41.9 Anxiety disorder, unspecified; M81.0 Age-related osteoporosis without current pathological fracture; R20.9 Unspecified disturbances of skin sensation; E06.3 Autoimmune thyroiditis; E87.6 Hypokalemia; R60.0 Localized edema; K21.9 Gastro-esophageal reflux disease without esophagitis; M51.36 Other intervertebral disc degeneration, lumbar region; R15.9 Full incontinence of feces; Z79.899 Other long term (current) drug therapy; Z88.6 Allergy status to analgesic agent; Z88.4 Allergy status to anesthetic agent; Z88.8 Allergy status to other drugs, medicaments and biological substances; Z91.048 Other nonmedicinal substance allergy status; Z82.5 Family history of asthma and other chronic lower respiratory diseases; Z80.1 Family history of malignant neoplasm of trachea, bronchus and lung; Z82.69 Family history of other diseases of the musculoskeletal system and connective tissue; E66.9 Obesity, unspecified; Z68.27 Body mass index [BMI] 27.0-27.9, adult
CPT/HCPCS: 36415; 71010; 72131; 72148; 72192; 80048; 80053; 80320; 80329; 81003; 82140; 82550; 82553; 83605; 83690; 83735; 83880; 84443; 84484; 85025; 85610; 85730; 86140; 93005; 99406; A9270-GY; G0480; J0696; J1644; L0486

== ENCOUNTER 2018-04-01 14:43 | Inpatient (IN) | payer MEDICARE ==
[2018-04-01] MEDS ORDERED: NS 0.9% 1000 ML*IV.FLUID IV ONE (14:55)
[2018-04-01 15:52] LABS: Hematocrit 41 % (35-47); Hemoglobin 13.7 g/dl (12.0-16.0); Mean Corpuscular HGB Conc 34 g/dl (31-36); Mean Corpuscular Hemoglobin 32 pg (27-31); Mean Corpuscular Volume 96 fL (80-97); Platelet Count 463 10^3/ul (150-450); Red Blood Count 4.25 10^6/ul (4.0-5.4); Red Cell Distribution Width 16 % (10.5-15); White Blood Count 15.7 10^3/ul (3.5-10.8)
--- NOTE | 2018-04-01 15:54 | RAD ---
HISTORY: Found down, fall COMPARISONS: MRI dated October 31, 2017 TECHNIQUE: Multiple contiguous axial CT scans were obtained of the head without intravenous contrast. FINDINGS: HEMORRHAGE/INFARCT: There is no hemorrhage or acute infarct. MASSES/SHIFT: There is no mass or shift. EXTRA-AXIAL SPACES: There are no extra-axial fluid collections. SULCI AND VENTRICLES: The sulci and ventricles are normal in size and position for the patient's stated age. CEREBRUM: There is hypoattenuation of the periventricular and subcortical white matter. There is encephalomalacia of the right basal ganglia. BRAINSTEM: There are no focal parenchymal abnormalities. CEREBELLUM: There are no focal parenchymal abnormalities. VESSELS: The vessels are grossly normal. PARANASAL SINUSES: The paranasal sinuses are clear. ORBITS: The orbits are unremarkable. BONES AND SOFT TISSUE: No bone or soft tissue abnormalities are noted. OTHER: None IMPRESSION: NO ACUTE INTRACRANIAL PATHOLOGY. CHRONIC SMALL VESSEL ISCHEMIC CHANGES
--- NOTE | 2018-04-01 15:59 | RAD ---
HISTORY: Found down, fall COMPARISONS: November 30, 2016 TECHNIQUE: Multiple contiguous axial CT scans were obtained of the cervical spine without intravenous contrast, with coronal and sagittal multiplanar reformations. FINDINGS: BRAIN: The visualized brain is unremarkable CENTRAL CANAL: Evaluation of the central canal is limited on CT technique; however, there is no obvious canalicular mass or epidural hemorrhage. ALIGNMENT: There is a scoliotic curvature of the spine. VERTEBRAL BODIES: There is diffuse osteopenia. There is postsurgical change of the spine. There is multilevel anterolateral marginal osteophyte formation. There is no displaced fracture. Incidentally noted is a dysraphic defect of the posterior arch of C1. JOINTS: There is uncovertebral and facet osteoarthritis. MUSCULATURE: Unremarkable INTERVERTEBRAL DISCS: There is diffuse loss of intervertebral disc height. AXIAL IMAGES: On axial images, there is no significant osseous neural foraminal narrowing or central canal stenosis. SOFT TISSUES: The visualized soft tissues of the neck are unremarkable. The prevertebral fat stripe is preserved. OTHER: None. IMPRESSION: 1. SCOLIOSIS. 2. POST SURGICAL CHANGE. 3. DEGENERATIVE DISC DISEASE AND OSTEOARTHRITIS. 4. NO ACUTE OSSEOUS INJURY TO THE CERVICAL SPINE
[2018-04-01 16:00] LABS: INR 0.94 (0.77-1.02)
[2018-04-01 16:10] LABS: EGFR Non-African American 66.3 (>60)
--- NOTE | 2018-04-01 16:49 | RAD ---
HISTORY: Fall, right shoulder pain COMPARISONS: June 23, 2017 VIEWS: 1: frontal portable view of the chest at 4:10 PM FINDINGS: LINES AND TUBES: None. CARDIOMEDIASTINAL SILHOUETTE: The cardiomediastinal silhouette is normal for portable technique. PLEURA: The costophrenic angles are sharp. No pleural abnormalities are noted. LUNG PARENCHYMA: The lungs are clear. ABDOMEN: The upper abdomen is clear. There is no subphrenic gas. BONES AND SOFT TISSUES: There is a scoliotic curvature of the spine. There is postsurgical change to the spine. IMPRESSION: NO ACTIVE CARDIOPULMONARY DISEASE.
--- NOTE | 2018-04-01 16:50 | RAD ---
HISTORY: Fall, right shoulder pain COMPARISONS: None VIEWS: 4, Frontal internal rotation, external rotation, outlet, and axillary views of the right shoulder FINDINGS: BONE DENSITY: There is diffuse osteopenia. BONES: There is no displaced fracture. JOINTS: There is mild osteoarthritis of the right AC joint. ALIGNMENT: There is no dislocation. SOFT TISSUES: Unremarkable. OTHER FINDINGS: None. IMPRESSION: NO ACUTE OSSEOUS INJURY. IF SYMPTOMS PERSIST, RECOMMEND REPEAT IMAGING.
[2018-04-01 16:57] LABS: ABS Basophils 0 10^3/ul (0-0.2); ABS Eosinophils 0.1 10^3/ul (0-0.6); ABS Lymphocytes 1.3 10^3/ul (1.0-4.8); ABS Monocytes 1.2 10^3/ul (0-0.8); ABS Neutrophils 12.8 10^3/ul (1.5-7.7); ABS Nucleated RBC 0 10^3/ul; Eosinophil % 0.4 % (0-6); Lymphocyte % 8.7 % (25-47); Nucleated Red Blood Cells % 0
[2018-04-01] MEDS ORDERED: Potassium Chlor TAB* 20 MEQ TAB.ER PO ONE (17:24)
[2018-04-01] MEDS ORDERED: KCL 10 MEQ/50 ML IVPREMIX* 10 MEQ/50 ML BAG IV ONE ×2 (17:24→18:57)
[2018-04-01] MEDS ORDERED: cefTRIAXone(*) 1 GM in NS 0.9% 50 ML* 50 ML IVPB ONE (17:44)
[2018-04-01] MEDS ORDERED: NS 0.9% 1000 ML* 1,000 ML IV ONE (17:50)
[2018-04-01] MEDS ORDERED: Ibuprofen TAB* 400 MG PO PRN (18:48)
[2018-04-01 18:52] LABS: Urine Appearance Clear; Urine Blood Negative (Negative); Urine Color Yellow; Urine Ketones 2+ (Negative); Urine Protein 2+(100 mg/dL) (Negative); Urine Specific Gravity 1.024 (1.010-1.030); Urine Urobilinogen Positive (Negative)
[2018-04-01] MEDS ORDERED: fentaNYL PATCH 25 MCG/HR TRANSDERM SCH (19:00)
[2018-04-01] MEDS ORDERED: Albuterol 2.5 MG/3 ML NEB.SOL* (0.083%) INH PRN (19:05)
[2018-04-01] MEDS ORDERED: cefTRIAXone(*) 1 GM ADVAN/BAG ONE (19:07)
[2018-04-01] MEDS: Diltiazem CD CAP* 240 MG PO SCH (20:57)
[2018-04-01] MEDS: Gabapentin CAP(*) 300 MG PO SCH (20:57)
[2018-04-01] MEDS: Famotidine TAB* 20 MG PO SCH (20:57)
[2018-04-01] MEDS: Heparin VIAL(*) 5000 UNITS/ML VIAL (FIVE THOUSAND) SUBCUT SCH (20:59)
--- NOTE | 2018-04-01 22:03 | HP ---
AMENDED REPORT NOW INCLUDES COSIGNER DESIGNATION - ESIGNED BEFORE ADJUSTMENTS ADMISSION HISTORY AND PHYSICAL: DATE OF ADMISSION: 04/01/18 ATTENDING PHYSICIAN: Dr. Pretty Galarza.* (DICTATED BY JAREK CHAPARRO NP) PRIMARY CARE PHYSICIAN: Dr. Swenson. MEDICAL HEALTHCARE PROXY: In the record, it is her sister, Tarsha Dai; however , it is her son who is at the bedside giving information today. CODE STATUS: The patient is a full code. HISTORY OF PRESENT ILLNESS: Most of the information was obtained from the patient's son at the bedside. Per the report, the patient's son had seen the patient in her usual state of health approximately 7 days ago. He does care for her doing her food shopping, cleaning the house etc. About once a week he does come to visit. He has left her last week with no acute distress or issues before he walked out of the house. The patient also has visiting nurse services. However, the patient's son states he was not able to get in touch with his mother during the week, went to the house today and found her on the floor. The food that he had left for her last week was still unpacked. There were no dishes in the sink. So, it is assumed that she has been on the floor for at least 6 days. The patient was very lethargic and difficult to arouse and was delirious and altered. Emergency services were called. The patient was brought into the emergency department for prompt evaluation. The patient was found to be in poor condition covered in her own urine and excrement. She has got pressure wounds on the back of her head around the C6-C7 area and also at the sacrum. The patient was obviously dehydrated and again delirious. The patient received imaging in the emergency department, was rehydrated. Labs and urinalysis were obtained and hospitalist services were called for admission consultation. PAST MEDICAL HISTORY: Significant for cervical spinal issues, spinal degeneration, scoliosis, Sjogren's syndrome, insomnia, anxiety, hypertension, Ángel's thyroiditis, hyperlipidemia, basal cell carcinoma, T12 vertebral fracture, history of atrial fibrillation. PAST SURGICAL HISTORY: Significant for multiple spine surgeries, 3 in the past year and a half, all to the lumbar spine. She does have a cage noted on her x- ray. She had an ACDF in the past. Osteophytectomy, arthrodesis at C4 to C5 and C5 to C6. Bone graft in 2002, tubal ligation. MEDICATIONS: At home include: 1. Cod liver oil 1 tablet daily. 2. Hydrochlorothiazide 25 mg daily. 3. Melatonin 3 mg at bedtime as needed. 4. Pantoprazole 40 mg daily. 5. Atorvastatin 20 mg daily. 6. Famotidine 40 mg 2 times a day. 7. Fentanyl patch 75 mcg. 8. Cyclosporin 1 drop both eyes each day. 9. Celebrex 100 mg 2 times a day. 10. Prednisone 30 mg daily. 11. Gabapentin 600 mg 3 times a day. 12. Diltiazem 240 mg. FAMILY HISTORY: Significant for mother with asthma and brother with MS and father with lung cancer. SOCIAL HISTORY: The patient is a former smoker per the records and per her son , she has 60-gqro-jfwv history. Does not drink any alcohol. Lives by herself in [place]. REVIEW OF SYSTEMS: The patient is awake. She is alert. She is confused. She is talking about being at a wedding that she is speaking at a wedding. She is having some wincing with pain, although she is not able to articulate where her pain is. She denies any shortness of breath. No chest pain. No abdominal pain. She does feel some indigestion like symptoms. She feels a little bit of reflux as she describes it, but otherwise no nausea or vomiting. No urinary complaints, musculoskeletal complaints. She has diffuse pain throughout the spine, throughout the lower extremities and the back of the head. Neurologic: She has no complaints. Does not complain of any diplopia. No dizziness and no fatigue. Generally, overall the patient did state she feels overall tired. PHYSICAL EXAMINATION GENERAL: The patient is alert. VITAL SIGNS: Currently, blood pressure 170/94; heart rate 96 and atrial fibrillation; respiratory rate 19; O2 saturation between 90 and 93%, now on 2 L up to 95%; temperature is 98.9. HEENT: The patient is PERRLA with nonicteric sclerae. She does have no traumatic wounds, however, she does have pressure wounds to the skin on the back of the head, so I would state that her facial and anterior portion of her head is atraumatic; however, the back of the head is showing some pressure wounds with significant amount of exudate. Appears to be purulent and somewhat serosanguineous. NECK: Supple anteriorly with no JVD noted. No carotid bruit auscultated. Posteriorly around the C6, C7 area, she does have a stage 2 decubitus ulcer with some surrounding erythema and does not appear to be exudative in nature. CHEST: No apparent wounds or damage to the skin on the anterior chest or the posterior upper thoracic region. LUNGS: Clear bilaterally at the apices with no wheezing, rhonchi, or rales. Slightly diminished at the bases. CARDIOVASCULAR: She has an S1, S2 present. Rate is irregular, again atrial fibrillation on telemetry right now, but she does not appear to be in rapid ventricular response. ABDOMEN: Soft, nontender, and nondistended. I do not appreciate any organomegaly. She does have positive bowel sounds in all 4 quadrants. : Deferred. Again, sacral decub noted posteriorly stage 2 to 3 in two different areas. Does not appear to have much drainage from the sacral region. MUSCULOSKELETAL: There is no clubbing, no cyanosis, and no edema of the lower extremities. She does have +2 distal pulses intact. She has 1 small skin tear on the left great toe that appears to be scabbed over with no exudate or erythema noted. NEUROLOGIC: She is confused. She is alert to person and place and not to time. She is able to tell me her date and who the people in the room are; however, she keeps speaking of weddings and being in [place] and things of that nature. Her delirium is persisting, but it does seem to be improving from when she was first admitted. LABORATORY DATA: WBC is 15.7, RBC is 4.25, hemoglobin 13.7, hematocrit 41, platelets 463, neutrophils 83.1, lymphocytes 8.7, mono 7.6. Sodium 145, potassium 3.1, chloride 102, CO2 28, BUN 23, creatinine 0.84, GFR 66.3, glucose 107, lactic acid 0.7, calcium 9.3. Bilirubin 0.80, AST 28, ALT 20, alk phos 61. Creatinine kinase 457. First troponin is 0.05. Total protein 7.7, albumin 4.1, globulin 3.6. Urinalysis is pending. INR 0.94. APTT is 33.7. IMAGING RESULTS: Chest x-ray shows no active cardiopulmonary disease. CAT scan of the brain shows no acute intracranial pathology, but some chronic small vessel ischemic changes. There is some encephalomalacia of the right basal ganglia also noted on the CAT scan. X-ray of the right shoulder shows no acute osseous injury and cervical spine CT shows scoliosis, postsurgical changes, degenerative disk disease and osteoarthritis. No acute osseous injury on the cervical spine. So, there are no fractures noted in the C-spine. IMPRESSION: This is a 72-year-old female patient who does have some difficulty with gait and ambulation who has just recently undergone many surgeries of the lower spine for which she was in [place] and rehab and then had been returned to home, found minimally responsive on the floor by family members and delirious at that time. These events have been unwitnessed, so we are unsure of the mechanism of her injury. PLAN: The patient has been admitted to medical service. DIAGNOSES: 1. Nonwitnessed fall. The patient has received aggressive fluid hydration in the ER. She is on her third liter of fluid now. The patient will be placed on maintenance fluid after. 2. Pressure wounds to the head and sacrum. I placed consult for wound care clinic. Also, had discussion with Alice Vargas NP of the wound care service, who has recommended silver alginate and repositioning q.2 hours, which will be very important. She must be lateral decubitus at all time to take any pressure off the back of the head and also for sacral wounds. These were all should be measured and monitored on a daily basis. 3. For her hypertension, we will place her back on her home meds as well as her Cardizem which will also help with her BP. 4. Atrial fibrillation. She is currently in AFib. We do not know if this is chronic AFib or if is paroxysmal; however, given her dehydration and prolonged downtime, I am not surprised that she is in AFib right now. She does not have a fever. We will give her one dose of her Cardizem 240mg at this time and continue to monitor for rapid ventricular response. She will remain on telemetry. 5. Leukocytosis, white count is 15.7. At this point, we will be looking at the urine for a source. We will give her ceftriaxone and continue to monitor both blood and urine cultures. 6. For hypokalemia, this seems to be [id number]. She did have hypokalemia at the end of last year. She has received oral potassium and one rider. We will give her an additional rider and then add 20 mEq to her maintenance fluids. 7. For her spine disease and general pain, she was on a higher dose fentanyl patch of 75 mcg; however, I feel given her current debility and delusional behavior, we will put a smaller patch on of 25 mcg to help offset her pain, but not to confuse her. I also do not want her to go through any kind of withdrawal symptoms by not having narcotics that she has been maintained on. 8. Low pulse ox. The patient I think has some remote history of chronic obstructive pulmonary disease. She is not on medications. She can have albuterol q.4 hours as needed and also supplemental oxygen to keep her saturations greater than 88%. She will have physical therapy, occupational evaluations when stable. 9. For DVT prophylaxis, we will give her heparin subcu. She is currently a full code. Again, this has been discussed with family. Also , of significance, her family is interested in the patient going to [place]. They had been working on this plan. When the patient was sent back to [facility] after her last surgery and rehab at [facility], they did not feel she was safe going back to [facility] and they were trying to get her admitted to [place]. We will work very closely with case management and try to get her to [place] at discharge and will probably need some sort of rehab in between. The rest of the patient's course will be determined by further diagnostics, laboratories and any other input from other providers as warranted during this admission. TIME SPENT: I spent an excess of 60 minutes on this admission examining the patient, discussing care with family, interpretation of results, and studying the chart and her previous history. JAREK CHAPARRO, CARINE [id number]/CPS #: [id number] MTDMichel
[2018-04-01] MEDS: Nystatin TOP POWDER* 15 GM BTL TOPICAL SCH (22:50)
[2018-04-02 06:14] LABS: ABS Basophils 0.1 10^3/ul (0-0.2); ABS Eosinophils 0.3 10^3/ul (0-0.6); ABS Lymphocytes 1.8 10^3/ul (1.0-4.8); ABS Monocytes 1.1 10^3/ul (0-0.8); ABS Neutrophils 8.2 10^3/ul (1.5-7.7); ABS Nucleated RBC 0 10^3/ul; Eosinophil % 2.4 % (0-6); Hematocrit 34 % (35-47); Hemoglobin 11.4 g/dl (12.0-16.0); Lymphocyte % 15.7 % (25-47); Mean Corpuscular HGB Conc 33 g/dl (31-36); Mean Corpuscular Hemoglobin 32 pg (27-31); Mean Corpuscular Volume 96 fL (80-97); Mean Platelet Volume 8.6 um3 (7.4-10.4); Nucleated Red Blood Cells % 0; Platelet Count 383 10^3/ul (150-450); Red Blood Count 3.55 10^6/ul (4.0-5.4); Red Cell Distribution Width 17 % (10.5-15); White Blood Count 11.4 10^3/ul (3.5-10.8)
[2018-04-02] MEDS: Heparin VIAL(*) 5000 UNITS/ML VIAL (FIVE THOUSAND) SUBCUT SCH ×3 (06:18→21:56)
[2018-04-02 06:32] LABS: EGFR Non-African American 83.2 (>60)
[2018-04-02] MEDS: fentaNYL Patch Check Q Shift 1 NOTE SCH ×2 (07:21→19:27)
[2018-04-02] MEDS: NS 0.9% w/ 20 Meq KCL 1000 ML* 1,000 ML IV SCH (08:07)
[2018-04-02] MEDS: Hydrochlorothiazide TAB* 25 MG PO SCH (08:08)
[2018-04-02] MEDS: Gabapentin CAP(*) 300 MG PO SCH ×3 (08:08→19:47)
[2018-04-02] MEDS: Omeprazole CAP* 20 MG PO SCH (08:09)
[2018-04-02] MEDS: Diltiazem CD CAP* 240 MG PO SCH (08:09)
[2018-04-02] MEDS: Atorvastatin* 20 MG TAB PO SCH (08:09)
[2018-04-02] MEDS: Famotidine TAB* 20 MG PO SCH ×2 (08:09→19:48)
[2018-04-02] MEDS ORDERED: KCL 10 MEQ/50 ML IVPREMIX* 10 MEQ/50 ML BAG IV ONE (08:48)
--- NOTE | 2018-04-02 09:00 | PN ---
Subjective Date of Service: 04/02/18 Interval History: Mrs. Willoughby is doing much better today. She complaints of occasional mild headaches, but no dizziness, blurred vision, nausea, vomiting, chest pain or SOB. Has finished her entire breakfast, feels thirsty, encouraged to increase PO intake. Has not voided since admission, but denies suprapubic fullness or pain. Has not ambulated yet. No fever or chills. She expressed her desire to go to [facility] upon discharge, would not consider other facilities because "[facility] food is edible". She has no other complaints today. Son, Som, came and visit later this afternoon. I had a long discussion with him regarding plans of care. Family History: Unchanged from Admission Social History: Unchanged from Admission Past Medical History: Unchanged from Admission Objective Active Medications: Albuterol (Ventolin 2.5 Mg/3 Ml Neb.Joyce*) 2.5 mg INH Q4H PRN PRN Reason: SOB/WHEEZING Atorvastatin Calcium (Lipitor*) 20 mg PO DAILY [facility] Last Admin: 04/02/18 08:09 Dose: 20 mg Diltiazem HCl (Cardizem Cd Cap*) 240 mg PO DAILY [facility] Last Admin: 04/02/18 08:09 Dose: 240 mg Famotidine (Pepcid Tab*) 40 mg PO BID [facility] Last Admin: 04/02/18 08:09 Dose: 40 mg Fentanyl (Duragesic Patch 25 Mcg/Hr*) 25 mcg TRANSDERM Q72H [facility] Last Admin: 04/01/18 20:52 Dose: 25 mcg Gabapentin (Neurontin Cap(*)) 600 mg PO TID [facility] Last Admin: 04/02/18 08:08 Dose: 600 mg Heparin Sodium (Porcine) (Heparin Vial(*)) 5,000 units SUBCUT Q8HR [facility] Last Admin: 04/02/18 06:18 Dose: 5,000 units Hydrochlorothiazide (Hydrodiuril Tab*) 25 mg PO QAM [facility] Last Admin: 04/02/18 08:08 Dose: 25 mg Potassium Chloride/Sodium Chloride (Ns 0.9% W/ 20 Meq Kcl 1000 Ml*) 1,000 mls @ 50 mls/hr IV PER RATE [facility] Last Admin: 04/02/18 08:07 Dose: 50 mls/hr Potassium Chloride (Potassium Chloride 10 Meq/50 Ml Ivpremix*) 10 meq in 50 mls @ 50 mls/hr IV ONCE ONE Stop: 04/02/18 09:47 Ibuprofen (Motrin Tab*) 400 mg PO Q6H PRN PRN Reason: fever/headache/pain Nystatin (Nystatin Top Powder*) 1 applic TOPICAL BID [facility] Last Admin: 04/01/18 22:50 Dose: 1 applic Omeprazole (Prilosec Cap*) 20 mg PO DAILY@0730 [facility] Last Admin: 04/02/18 08:09 Dose: 20 mg Pharmacy Profile Note (Fentanyl Patch Check Q Shift) 1 note N/A 0700,1900 [facility] Last Admin: 04/02/18 07:21 Dose: 1 note Potassium Chloride (Klor Con Er Tab*) 20 meq PO DAILY [facility] Vital Signs - 8 hr 04/02/18 04/02/18 04/02/18 03:58 07:46 08:08 Temperature 99.4 F 97.4 F Pulse Rate 77 71 Respiratory 16 16 18 Rate Blood Pressure 116/53 123/56 (mmHg) O2 Sat by Pulse 99 94 Oximetry Oxygen Devices in Use Now: Nasal Cannula Appearance: Appears comfortable in her bed, finshed eating breakfast, in NAD Eyes: No Scleral Icterus, PERRLA Ears/Nose/Mouth/Throat: Clear Oropharnyx, Mucous Membranes Moist Neck: Trachea Midline, - - Neck with some stiffness to side movements, but no tenderness with passive motions. No c-spine tenderness. Occiput with a superficial pressure ulcer covered with eschar. Minimal tenderness and mild surrounding erythema. No bleeding or discharge. A small abrasion noted to posterior neck, covered with duederm dressing. Respiratory: Symmetrical Chest Expansion and Respiratory Effort, Clear to Auscultation Cardiovascular: NL Sounds; No Murmurs; No JVD, RRR Abdominal: NL Sounds; No Tenderness; No Distention Extremities: No Edema, No Clubbing, Cyanosis Skin: No Rash or Ulcers Neurological: Alert and Oriented x 3, NL Sensation, NL Muscle Strength and Tone Nutrition: Taking PO's Result Diagrams: 04/02/18 05:38 04/02/18 05:38 Additional Lab and Data: Total Creatinine Kinase 457 Microbiology and Other Data: RUN DATE: 04/02/18 [facility] LAB LIVE PAGE 1 RUN TIME: [address] [place] [id number] Specimen Inquiry Name: MARK WILLOUGHBY : [address]: Tahir Rodriguez MD Acct: [id number] Unit: [id number] AGE: 72 Location: [place] [address] Re04/01/18 SEX: F Status: ADM IN SPEC: [id number] JOSE: 04/01/[address]: Uriel Higginbotham MD REQ: [id number] RECD: 04/01/18 _ STATUS: COMP OTHR DR: Jennifer Connor [facility] SOURCE: URINE SPDESC: ORDERED: Urine Culture Procedure Result Reported Site Urine Culture Final 04/02/18- 1606 ML No Growth (<1,000 CFU/mL) * ML - Main Lab . Blood cultures, no growth on day 1 Diagnostic Imaging: Patient Name: MARK WILLOUGHBY Medical Record#: [id number] Ordering Physician: Alec LARSON Acct.#: [id number] : 1945 Age: 72 Sex: F Location: [address] [place] [address] MEDICAL/TELEMETRY Exam Date: 04/02/18 1447 ADM Status: ADM IN Order Information: SP LUMBAR AP/LAT 2-3 VIEWS Accession Number: [id number] CPT: 06500 HISTORY: Unwitnessed fall, altered mental status COMPARISONS: CT dated June 23, 2017 IMPRESSION: 1. STATUS POST SPINAL FUSION. 2. OSTEOPENIA. 3. DEGENERATIVE DISC DISEASE AND OSTEOARTHRITIS. 4. 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 THERE IS NO OSSEOUS RETROPULSION. 5. SCOLIOSIS. <Electronically signed by Avtar Hay MD in OV> 04/02/18 1534 Dictated By: Avtar Hay MD Dictated Date/Time: 04/02/18 153 Transcribed Date/Time: 04/02/18 1532 Copy to: Patient Name: MARK WILLOUGHBY Medical Record#: [id number] Ordering Physician: Uriel Higginbotham MD Acct.#: [id number] : 1945 Age: 72 Sex: F Location: EMERGENCY DEPARTMENT Exam Date: 04/01/18 1514 ADM Status: REG ER Order Information: CT SPINE CERVICAL W/O Accession Number: [id number] CPT: 98438 HISTORY: Found down, fall COMPARISONS: November 30, 2016 TECHNIQUE: Multiple contiguous axial CT scans were obtained of the cervical spine without intravenous contrast, with coronal and sagittal multiplanar reformations. IMPRESSION: 1. SCOLIOSIS. 2. POST SURGICAL CHANGE. 3. DEGENERATIVE DISC DISEASE AND OSTEOARTHRITIS. 4. NO ACUTE OSSEOUS INJURY TO THE CERVICAL SPINE <Electronically signed by Avtar Hay MD in OV> 04/01/18 155 Dictated By: Avtar Hay MD Dictated Date/Time: 04/01/18 155 Transcribed Date/Time: 04/01/18 1551 Copy to: Patient Name: MARK WILLOUGHBY Medical Record#: [id number] Ordering Physician: Uriel Higginbotham MD Acct.#: [id number] : 1945 Age: 72 Sex: F Location: EMERGENCY DEPARTMENT Exam Date: 04/01/18 1458 ADM Status: REG ER Order Information: CT BRAIN WO Accession Number: [id number] CPT: 14152 HISTORY: Found down, fall COMPARISONS: MRI dated October 31, 2017 TECHNIQUE: Multiple contiguous axial CT scans were obtained of the head without intravenous contrast. IMPRESSION: NO ACUTE INTRACRANIAL PATHOLOGY. CHRONIC SMALL VESSEL ISCHEMIC CHANGES <Electronically signed by Avtar Hay MD in OV> 04/01/18 155 Dictated By: Avtar Hay MD Dictated Date/Time: 04/01/18 155 Transcribed Date/Time: 04/01/18 1550 Copy to: EKG Data: EKG INTERPRETATION ECG Report Patient Name MARK WILLOUGHBY Birthdate 1945 Sex F Order Number [id number] Date of ECG 04/01/2018 15:12:06 Interpretation Atrial fibrillation.V-rate 97-100, irreg A-activity Left bundle branch block.QRSd>120, broad/notched R - ABNORMAL ECG - ECG NEEDS E-SIGNING Assess/Plan/Problems-Billing Assessment: A 72 y/o female with PMHx mutliple spine surgeries, who apparently was found laying on her kitchen floor for unknown period of time after she sustained a fall at home that was unwitnessed and mechanism of action unclear - Patient Problems (1) Fall Current Visit: Yes Status: Acute Priority: High Comment: - Patient has been unstable ambulating recently - Head and neck CT negative for any acute process - Thoracic and lumbar spine with no acute injury. - PT eval - discussed placement to [facility], patient and son agreed to "[facility]" (2) Rhabdomyolysis Current Visit: No Status: Acute Priority: High Comment: - In setting of falling and laying on floor for unknown period of time - Gentle hydration - Monitor Cr/BUN (3) Pressure ulcer, head Current Visit: Yes Status: Acute Priority: High Comment: - Local wound care and dressing changes - Wound care consult appreciated (4) Elevated troponin Current Visit: No Status: Acute Comment: - Appears chronic - Also expected to be elevated with increased creatinine kinase - EKG with no significant ST changes - No chest pain (5) Leukocytosis Current Visit: No Status: Acute Code(s): D72.829 - ELEVATED WHITE BLOOD CELL COUNT, UNSPECIFIED SNOMED Code(s): 873409165 Comment: - suspect reactive stress respone. no obvious signs of infection. - Recieved a dose of Ancef in ED, repeat CBC tomorrow, hold off Abx for now (6) HTN (hypertension) Current Visit: No Status: Acute Comment: - Continue Diltiazem, hold HCTZ for now (7) DVT prophylaxis Current Visit: No Status: Acute Comment: - Heparin subQ (8) Full code status Current Visit: No Status: Acute Status and Disposition: Inpatient, anticipate discharge when medically stable to SNF.
[2018-04-02] MEDS: Potassium Chlor TAB* 20 MEQ TAB.ER PO SCH (10:58)
[2018-04-02] MEDS: Nystatin TOP POWDER* 15 GM BTL TOPICAL SCH ×2 (11:10→19:53)
--- NOTE | 2018-04-02 15:37 | RAD ---
HISTORY: Unwitnessed fall, altered mental status COMPARISONS: CT dated June 23, 2017 VIEWS: 3 , Frontal, lateral, and coned-down lateral sacral views of the lumbar spine FINDINGS: There is transitional last lumbar type vertebral body which will be labeled L5 for the purposes of counting and to be consistent with the previous CT examination. ALIGNMENT: There is a mild levoscoliotic curvature of the spine. VERTEBRAL BODIES: There is diffuse osteopenia. The patient is status post percutaneous vertebral augmentation and spinal fusion with screws at T10, T11, L1, and L2. There is no hardware failure or osteolysis. There is been interval development of a compression deformity of L3, which is of indeterminate acuity. There is partial sacralization of the L5 vertebral body. JOINTS: There is facet osteoarthritis most pronounced at L3-L4, L4-L5, and L5-S1 INTERVERTEBRAL DISCS: There is diffuse loss of intervertebral disc height. SOFT TISSUE: Unremarkable. OTHER: The pelvis is unremarkable. The lung bases are clear. IMPRESSION: 1. STATUS POST SPINAL FUSION. 2. OSTEOPENIA. 3. DEGENERATIVE DISC DISEASE AND OSTEOARTHRITIS. 4. 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 THERE IS NO OSSEOUS RETROPULSION. 5. SCOLIOSIS.
--- NOTE | 2018-04-02 15:38 | RAD ---
HISTORY: Fall, altered mental status COMPARISONS: CT of the L-spine dated June 23, 2017 VIEWS: 3, Frontal and lateral views of the thoracic spine. FINDINGS: ALIGNMENT: There is a mild scoliotic curvature of the spine. VERTEBRAL BODIES: There is diffuse osteopenia. As noted on the previous examination compatible screws are noted at T10 and T11, with the vertebral body cage at T12. There is no hardware failure or osteolysis. JOINTS: Unremarkable. INTERVERTEBRAL DISCS: There is diffuse loss of intervertebral disc height. SOFT TISSUE: Unremarkable OTHER: The visualized lungs are clear. IMPRESSION: 1. OSTEOPENIA. 2. POSTSURGICAL CHANGE. 3. DEGENERATIVE DISC DISEASE.
[2018-04-03] MEDS: NS 0.9% w/ 20 Meq KCL 1000 ML* 1,000 ML IV SCH (06:00)
[2018-04-03] MEDS: Heparin VIAL(*) 5000 UNITS/ML VIAL (FIVE THOUSAND) SUBCUT SCH ×3 (06:02→21:12)
[2018-04-03 06:08] LABS: ABS Basophils 0.1 10^3/ul (0-0.2); ABS Eosinophils 0.4 10^3/ul (0-0.6); ABS Lymphocytes 2.7 10^3/ul (1.0-4.8); ABS Monocytes 0.7 10^3/ul (0-0.8); ABS Neutrophils 6.1 10^3/ul (1.5-7.7); ABS Nucleated RBC 0 10^3/ul; Hematocrit 37 % (35-47); Hemoglobin 12.3 g/dl (12.0-16.0); Lymphocyte % 27.2 % (25-47); Mean Corpuscular HGB Conc 34 g/dl (31-36); Mean Corpuscular Hemoglobin 32 pg (27-31); Mean Corpuscular Volume 96 fL (80-97); Mean Platelet Volume 8.6 um3 (7.4-10.4); Nucleated Red Blood Cells % 0; Platelet Count 364 10^3/ul (150-450); Red Blood Count 3.82 10^6/ul (4.0-5.4); Red Cell Distribution Width 17 % (10.5-15); White Blood Count 10.1 10^3/ul (3.5-10.8)
[2018-04-03 06:24] LABS: EGFR Non-African American 73.3 (>60)
[2018-04-03] MEDS: fentaNYL Patch Check Q Shift 1 NOTE SCH ×3 (07:08→19:22)
[2018-04-03] MEDS: Omeprazole CAP* 20 MG PO SCH (07:09)
[2018-04-03] MEDS: Gabapentin CAP(*) 300 MG PO SCH ×3 (08:22→21:12)
[2018-04-03] MEDS: Nystatin TOP POWDER* 15 GM BTL TOPICAL SCH ×2 (08:23→21:18)
[2018-04-03] MEDS: Atorvastatin* 20 MG TAB PO SCH (08:23)
[2018-04-03] MEDS: Famotidine TAB* 20 MG PO SCH ×2 (08:23→21:12)
[2018-04-03] MEDS: Diltiazem CD CAP* 240 MG PO SCH (08:23)
[2018-04-03] MEDS: Hydrochlorothiazide TAB* 25 MG PO SCH (08:23)
[2018-04-03] MEDS: Potassium Chlor TAB* 20 MEQ TAB.ER PO SCH (08:23)
--- NOTE | 2018-04-03 13:31 | PN ---
Subjective Date of Service: 04/03/18 Interval History: Patient was seen and examined at bedside. Reports feeling better overall, still c/o of headaches, but when asked where, she points to sides of her neck. Denies weakness, numbness, visual changes, chest pain or SOB. Son concerned about her slurred speech which seems to be worse today. She has been eating well, denies any dysphagia or difficulty swallowing. Discussed imaging with patient and her son, no evidence of any acute injury. PT evaluation was done, patient able to ambulate with help. Son discussing placement plans with case manager specialist, considering Medicaid application to cover [facility] if indicated. Family History: Unchanged from Admission Social History: Unchanged from Admission Past Medical History: Unchanged from Admission Objective Active Medications: Albuterol (Ventolin 2.5 Mg/3 Ml Neb.Joyce*) 2.5 mg INH Q4H PRN PRN Reason: SOB/WHEEZING Atorvastatin Calcium (Lipitor*) 20 mg PO DAILY [facility] Last Admin: 04/03/18 08:23 Dose: 20 mg Diltiazem HCl (Cardizem Cd Cap*) 240 mg PO DAILY [facility] Last Admin: 04/03/18 08:23 Dose: 240 mg Famotidine (Pepcid Tab*) 40 mg PO BID [facility] Last Admin: 04/03/18 08:23 Dose: 40 mg Fentanyl (Duragesic Patch 25 Mcg/Hr*) 25 mcg TRANSDERM Q72H [facility] Last Admin: 04/01/18 20:52 Dose: 25 mcg Gabapentin (Neurontin Cap(*)) 600 mg PO TID [facility] Last Admin: 04/03/18 13:05 Dose: 600 mg Heparin Sodium (Porcine) (Heparin Vial(*)) 5,000 units SUBCUT Q8HR [facility] Last Admin: 04/03/18 13:04 Dose: 5,000 units Hydrochlorothiazide (Hydrodiuril Tab*) 25 mg PO QAM [facility] Last Admin: 04/03/18 08:23 Dose: 25 mg Potassium Chloride/Sodium Chloride (Ns 0.9% W/ 20 Meq Kcl 1000 Ml*) 1,000 mls @ 50 mls/hr IV PER RATE [facility] Last Admin: 04/03/18 06:00 Dose: 50 mls/hr Potassium Chloride (Potassium Chloride 10 Meq/50 Ml Ivpremix*) 10 meq in 50 mls @ 50 mls/hr IV Q2H [facility] Stop: 04/03/18 16:27 Naproxen (Naprosyn Tab*) 250 mg PO Q8H PRN PRN Reason: PAIN Nystatin (Nystatin Top Powder*) 1 applic TOPICAL BID [facility] Last Admin: 04/03/18 08:23 Dose: 1 applic Omeprazole (Prilosec Cap*) 20 mg PO DAILY@0730 [facility] Last Admin: 04/03/18 07:09 Dose: 20 mg Pharmacy Profile Note (Fentanyl Patch Check Q Shift) 1 note N/A 0700,1900 [facility] Last Admin: 04/03/18 07:08 Dose: 1 note Potassium Chloride (Klor Con Er Tab*) 20 meq PO DAILY [facility] Last Admin: 04/03/18 08:23 Dose: 20 meq Silver Sulfadiazine (Silvadine 1%*) 1 applic TOPICAL 0300 [facility] Vital Signs - 8 hr 04/03/18 04/03/18 04/03/18 08:00 08:07 08:22 Temperature 99.3 F Pulse Rate 81 Respiratory 17 18 17 Rate Blood Pressure 138/71 (mmHg) O2 Sat by Pulse 95 Oximetry 04/03/18 04/03/18 10:20 13:05 Temperature Pulse Rate Respiratory 15 16 Rate Blood Pressure (mmHg) O2 Sat by Pulse Oximetry Oxygen Devices in Use Now: None Appearance: Appears comfortable and in NAD Eyes: No Scleral Icterus, PERRLA Ears/Nose/Mouth/Throat: Clear Oropharnyx, Mucous Membranes Moist Neck: Trachea Midline, - - Neck exam with no tenderness noted. Passive movement does not elicit pain. Respiratory: Symmetrical Chest Expansion and Respiratory Effort, Clear to Auscultation Cardiovascular: NL Sounds; No Murmurs; No JVD, RRR Abdominal: NL Sounds; No Tenderness; No Distention Extremities: No Edema Skin: No Rash or Ulcers Neurological: Alert and Oriented x 3, NL Sensation, NL Muscle Strength and Tone Nutrition: Taking PO's Result Diagrams: 04/03/18 05:46 04/03/18 05:46 Additional Lab and Data: Total Creatinine Kinase 457 Microbiology and Other Data: RUN DATE: 04/02/18 [facility] LAB LIVE PAGE 1 RUN TIME: [address] [place] [id number] Specimen Inquiry Name: MARK DEL TORO : [address]: Tahir Rodriguez MD Acct: [id number] Unit: [id number] AGE: 72 Location: [place] [address] Re04/01/18 SEX: F Status: ADM IN SPEC: [id number] JOSE: 04/01/[address]: Uriel Higginbotham MD REQ: [id number] RECD: 04/01/18 _ STATUS: COMP OTHR DR: Jennifer Connor [facility] SOURCE: URINE SPDESC: ORDERED: Urine Culture Procedure Result Reported Site Urine Culture Final 04/02/18- 1606 ML No Growth (<1,000 CFU/mL) * ML - Main Lab . Blood cultures, no growth on day 1 Diagnostic Imaging: Patient Name: MARK DEL TORO Medical Record#: [id number] Ordering Physician: Alec LARSON Acct.#: [id number] : 1945 Age: 72 Sex: F Location: [address] [place] [address] MEDICAL/TELEMETRY Exam Date: 04/02/18 1447 ADM Status: ADM IN Order Information: SP LUMBAR AP/LAT 2-3 VIEWS Accession Number: [id number] CPT: 17347 HISTORY: Unwitnessed fall, altered mental status COMPARISONS: CT dated June 23, 2017 IMPRESSION: 1. STATUS POST SPINAL FUSION. 2. OSTEOPENIA. 3. DEGENERATIVE DISC DISEASE AND OSTEOARTHRITIS. 4. 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 THERE IS NO OSSEOUS RETROPULSION. 5. SCOLIOSIS. <Electronically signed by Avtar Hay MD in OV> 04/02/18 1534 Dictated By: Avtar Hay MD Dictated Date/Time: 04/02/18 153 Transcribed Date/Time: 04/02/18 153 Copy to: Patient Name: MARK DEL TORO Medical Record#: [id number] Ordering Physician: Uriel Higginbotham MD Acct.#: [id number] : 1945 Age: 72 Sex: F Location: EMERGENCY DEPARTMENT Exam Date: 04/01/18 1514 ADM Status: REG ER Order Information: CT SPINE CERVICAL W/O Accession Number: [id number] CPT: 33937 HISTORY: Found down, fall COMPARISONS: November 30, 2016 TECHNIQUE: Multiple contiguous axial CT scans were obtained of the cervical spine without intravenous contrast, with coronal and sagittal multiplanar reformations. IMPRESSION: 1. SCOLIOSIS. 2. POST SURGICAL CHANGE. 3. DEGENERATIVE DISC DISEASE AND OSTEOARTHRITIS. 4. NO ACUTE OSSEOUS INJURY TO THE CERVICAL SPINE <Electronically signed by Avtar Hay MD in OV> 04/01/181554 Dictated By: Avtar Hay MD Dictated Date/Time: 04/01/181554 Transcribed Date/Time: 04/01/181550 Copy to: Patient Name: MARK DEL TORO Medical Record#: [id number] Ordering Physician: Uriel Higginbotham MD Acct.#: [id number] : 1945 Age: 72 Sex: F Location: EMERGENCY DEPARTMENT Exam Date: 04/01/18 1458 ADM Status: REG ER Order Information: CT BRAIN WO Accession Number: [id number] CPT: 31621 HISTORY: Found down, fall COMPARISONS: MRI dated October 31, 2017 TECHNIQUE: Multiple contiguous axial CT scans were obtained of the head without intravenous contrast. IMPRESSION: NO ACUTE INTRACRANIAL PATHOLOGY. CHRONIC SMALL VESSEL ISCHEMIC CHANGES <Electronically signed by Avtar Hay MD in OV> 04/01/18 1551 Dictated By: Avtar Hay MD Dictated Date/Time: 04/01/18 155 Transcribed Date/Time: 04/01/18 1550 Copy to: EKG Data: EKG INTERPRETATION ECG Report Patient Name MARK DEL TORO Birthdate 1945 Sex F Order Number [id number] Date of ECG 04/01/2018 15:12:06 Interpretation Atrial fibrillation.V-rate 97-100, irreg A-activity Left bundle branch block.QRSd>120, broad/notched R - ABNORMAL ECG - ECG NEEDS E-SIGNING Assess/Plan/Problems-Billing Assessment: A 72 y/o female with PMHx mutliple spine surgeries, who apparently was found laying on her kitchen floor for unknown period of time after she sustained a fall at home that was unwitnessed and mechanism of action unclear - Patient Problems (1) Fall Current Visit: Yes Status: Acute Priority: High Comment: - Patient has been unstable ambulating recently - Head and neck CT negative for any acute process - Thoracic and lumbar spine with no acute injury. - PT eval - discussed placement to [facility] patient and son agreed to "[facility]" - EEG done today, no epiliptical activities. - Discussed with Dr. Berry for consultation. Slurred speech and neck stiffness not improving, await neurology input. (2) Rhabdomyolysis Current Visit: No Status: Acute Priority: High Comment: - In setting of falling and laying on floor for unknown period of time - Gentle hydration - Monitor Cr/BUN (3) Pressure ulcer, head Current Visit: Yes Status: Acute Priority: High Comment: - Local wound care and dressing changes - Wound care consult appreciated (4) Elevated troponin Current Visit: No Status: Acute Comment: - Appears chronic - Also expected to be elevated with increased creatinine kinase - EKG with no significant ST changes - No chest pain (5) Leukocytosis Current Visit: No Status: Acute Code(s): D72.829 - ELEVATED WHITE BLOOD CELL COUNT, UNSPECIFIED SNOMED Code(s): 831877030 Comment: - suspect reactive stress respone. no obvious signs of infection. - resolved today - Recieved a dose of Ancef in ED, repeat CBC tomorrow, hold off Abx for now (6) HTN (hypertension) Current Visit: No Status: Acute Comment: - Continue Diltiazem, hold HCTZ for now (7) DVT prophylaxis Current Visit: No Status: Acute Comment: - Heparin subQ (8) Full code status Current Visit: No Status: Acute (9) Hypokalemia Current Visit: Yes Status: Acute Comment: - KCL IV runs, as well as PO supplements - check lytes in AM Status and Disposition: Inpatient, anticipate discharge when medically stable to SNF.
[2018-04-03] MEDS: KCL 10 MEQ/50 ML IVPREMIX* 10 MEQ/50 ML BAG IV SCH ×2 (14:24→17:03)
[2018-04-03] MEDS: Naproxen TAB* 250 MG PO PRN (17:10)
--- NOTE | 2018-04-03 22:32 | RAD ---
Indication: Dysarthria. Found down. Assess for stroke. Comparison: April 01, 2018 CT and October 31, 2017 MRI. Technique: [place] 1.5 Denise TA697L with GEM suite. MRI brain without contrast. Report: Diffusion series is negative for acute or subacute ischemia. Subtle foci of signal loss at the bilateral basal ganglia without change compared with the 2017 exam which may reflect subtle basal ganglia calcification or hemosiderin deposition due to previous punctate hemorrhage. Mild prominence of the cerebral sulci and ventricles reflecting atrophy. Unremarkable basal cisterns. Small chronic lacunar infarct at the RIGHT basal ganglia. Moderate burden of increased T2 signal in the periventricular and subcortical white matter of the cerebral hemispheres. No extra-axial lesion or fluid collection evident. Unremarkable orbital contents. Preserved major intracranial flow-voids. No suspicious calvarial or skull base lesion evident. Grossly clear paranasal sinuses and RIGHT mastoid air spaces. Mild LEFT mastoid effusions as on the prior exam. IMPRESSION: 1. No evidence for acute or subacute ischemia or mass effect. 2. Noted white matter signal abnormalities are most suspicious for chronic small vessel ischemic disease however advanced demyelinating disease could have a similar appearance. There is no significant interval change compared with the October 31, 2017 exam. 3. Mild LEFT mastoid effusions as on the prior exam.
--- NOTE | 2018-04-04 01:51 | CONS ---
CONSULTATION REPORT: DATE OF CONSULT: 04/03/18 REQUESTING PROVIDER: [employer]. REASON FOR CONSULT: Neck stiffness, dysarthria. HISTORY OF PRESENT ILLNESS: Alejandrina Willoughby is a 72-year-old woman with a history of multiple spine surgeries, most recent in June of 2017, who is brought into the emergency department on 04/01/18, after being found down at her home. There was concern that she was potentially down in her home, unable to get up off the floor, for 6 days. Her son lives in [facility] and had last seen her 7 days ago, did her food shopping, and then apparently was not able to get in touch with her during the week and so went to the house on 04/01/18 , when he found her on the floor. She was apparently in very poor condition, covered in her own urine and excrement. She had pressure wounds in her occiput as well as the C6-7 areas, as well as the sacrum. She was dehydrated and delirious and was not able to give any history as to the events which led to her condition. Her son reports that this has happened a couple of times in the past where she has fallen for unclear reasons. She has apparently been evaluated by Dr. De La Paz from my office with EEG in the fall. Her mental status has improved since her initial admission, but she still is not at her baseline. In addition, her son states that her speech is garbled, which is also not her baseline. She has also had some neck stiffness since she was brought in. Her son reports that when he found her, her head was positioned with her chin towards her chest. It has been thought that this has led to muscle spasm and the patient does indicate that though she has neck pain, she is regaining range of motion in her neck. Neurology consultation was requested to evaluate these problems. PAST MEDICAL HISTORY: 1. Cervical spine disease, status post fusion, lumbar spine disease, status post surgeries, including placement of cage. 2. Scoliosis. 3. Sjogren's syndrome. 4. Insomnia. 5. Anxiety. 6. Hypertension. 7. Ángel's thyroiditis. 8. Hyperlipidemia. 9. Basal cell carcinoma. 10. T12 vertebral fracture. 11. History of atrial fibrillation. HOME MEDICATIONS: 1. Cod liver oil. 2. Hydrochlorothiazide 25 mg daily. 3. Melatonin 3 mg at bedtime as needed. 4. Pantoprazole 40 mg daily. 5. Atorvastatin 20 mg daily. 6. Famotidine 40 mg twice daily. 7. Fentanyl patch 75 mcg q.72 hours. 8. Restasis drops. 9. Celebrex twice daily. 10. Prednisone 30 mg daily. 11. Gabapentin 600 mg 3 times daily. 12. Diltiazem 240 mg daily. ALLERGIES: BUPROPION cause altered status. HYDROCODONE causes nausea. DECONGESTANTS cause hyperactivity. ANESTHESIA causes vomiting. Also listed are PHENYLPROPANOLAMINE, IODINE, and CHLORPHENIRAMINE. FAMILY HISTORY: There is a brother with MS, father with lung cancer, mother with asthma. SOCIAL HISTORY: She lives alone in [facility]. Her son lives in [facility]. She is a former smoker. No reported alcohol use. REVIEW OF SYSTEMS: She reports headache in the posterior aspect of her head as well as some neck pain and some buttock pain. She denies any chest pain. She does not have any swallowing difficulties. No abdominal pain. Otherwise as per the HPI. PHYSICAL EXAMINATION: Vital Signs: Temperature 98.8, blood pressure 121/60, heart rate 78, oxygen saturation 95% on room air. On general examination, she is in no acute distress. She had an Adelso wrap type bandage around her head, which she took off while I was in the room. At the time of my evaluation, her heart was in a regular rate and rhythm, with no clear murmurs. There were no carotid bruits. The lungs were clear to auscultation. She is reported to have pressure ulcers at her sacrum, C6-7, as well as the occiput, which I did not visualize. The rest of her skin appeared intact. On neurologic examination, she was able to say that she was in [facility], but when asked what type of facility she was in, she said it was a correction. She was able to state the name of her building. She was oriented to the month and the year, but not the exact date or day of the week. She accurately stated her age. She was able to describe the cookie theft picture on the stroke cards, name all objects, and was able to read the phrases, but her speech at times is garbled and is difficult to understand. She registered 3/3 objects, but after a period of about of 5 minutes of distraction she was not able to recall any of the objects. On cranial nerve exam, pupils were equal, round, and reactive from 3 to 2 mm bilaterally. Versions were full, without nystagmus. Orellana are full to confrontation. Facial sensation and musculature are full and symmetric. Hearing is intact to voice. The palate elevates symmetrically and the tongue is midline. She does appear to have dry mucous membranes. On motor examination , she had normal bulk and tone in the upper and lower extremities, with full strength. There was no pronator drift. She seems to potentially have some mild asterixis. Sensation was intact to light touch. Reflexes were 2+ in the upper extremities and knees, difficult to elicit at the ankles, with downgoing toes. Ibacmt-er-fqiu was intact without ataxia. I did not try to ambulate her. DIAGNOSTIC STUDIES/LAB DATA: On admission, her CBC showed a white blood cell count of 15.7, which is down to 10.1 today, hematocrit 37, hemoglobin 12.3, platelet count of 364. Her CMP this morning is notable for a low potassium of 3 , glucose of 104, calcium is 8.5, slightly low total protein of 6.2. Her troponin peaked at 0.14 on 04/01/18. CK was 457 on 04/01/18. Urinalysis showed 2+ ketones, positive urobilinogen, negative for signs or infection. Coagulation studies were normal. I reviewed her brain CT which shows evidence of small vessel ischemic changes. She is tilted in the scanner and it is difficult to tell whether there could be any other acute changes, but it seems that potentially there was some hypodensity in the right frontal region, which could be new compared to the last brain CT. She had CT of her cervical spine and x-rays of her thoracic and lumbar spine, as well as a shoulder x-ray. The lumbar spine showed a compression fracture at L3 of indeterminate age, otherwise shows evidence of spinal fusion, osteopenia, degenerative disk disease, and osteoarthritis, as well as scoliosis. Her thoracic x-ray showed osteopenia and screws noted at T10 and T12, as well as a vertebral body cage at T12 and degenerative disk disease, and the C-spine CT again showed scoliosis, dysraphic defect of the posterior arch of C1, as well as post surgical changes. Her MRI scan of the brain from November of 2016 was reviewed and shows evidence of small vessel ischemic changes in the bilateral cerebral hemispheres, but there was nothing acute at that time. IMPRESSION: Alejandrina Willoughby is a 72-year-old woman who was found down at her home for some period of days and came in with encephalopathy as well as dysarthria. She has been improving, but remains dysarthric. She otherwise does not have any focal findings on her examination, but I question whether some of the changes on her CT scan could be subacute in nature. We will try to get MRI scan of the brain, but she has extensive hardware in her spine and so we will have to make sure this is all MRI compatible. She had an EEG earlier today, which showed evidence of mild encephalopathy, but no epileptiform discharges. I think likely the neck stiffness is related to her positioning and prolonged downtime as well. [id number]/[facility]PS #: [id number] MTDD
[2018-04-04] MEDS ORDERED: Silver Sulfadiazine 1%* 85 GM TOPICAL SCH (03:00)
[2018-04-04] MEDS: Heparin VIAL(*) 5000 UNITS/ML VIAL (FIVE THOUSAND) SUBCUT SCH (06:14)
[2018-04-04] MEDS: NS 0.9% w/ 20 Meq KCL 1000 ML* 1,000 ML IV SCH (06:16)
[2018-04-04 06:36] LABS: ABS Basophils 0.1 10^3/ul (0-0.2); ABS Eosinophils 0.3 10^3/ul (0-0.6); ABS Lymphocytes 3.2 10^3/ul (1.0-4.8); ABS Neutrophils 5.1 10^3/ul (1.5-7.7); ABS Nucleated RBC 0 10^3/ul; Eosinophil % 3.5 % (0-6); Hematocrit 32 % (35-47); Lymphocyte % 32.4 % (25-47); Mean Corpuscular HGB Conc 35 g/dl (31-36); Mean Corpuscular Hemoglobin 33 pg (27-31); Mean Corpuscular Volume 95 fL (80-97); Mean Platelet Volume 8.6 um3 (7.4-10.4); Nucleated Red Blood Cells % 0; Platelet Count 385 10^3/ul (150-450); Red Blood Count 3.36 10^6/ul (4.0-5.4); Red Cell Distribution Width 16 % (10.5-15); White Blood Count 9.7 10^3/ul (3.5-10.8)
[2018-04-04 06:36] LABS: EGFR Non-African American 80.5 (>60)
[2018-04-04] MEDS: fentaNYL Patch Check Q Shift 1 NOTE SCH (07:07)
[2018-04-04] MEDS: Potassium Chlor TAB* 20 MEQ TAB.ER PO SCH (09:34)
[2018-04-04] MEDS: Naproxen TAB* 250 MG PO PRN (09:34)
[2018-04-04] MEDS: Gabapentin CAP(*) 300 MG PO SCH (09:34)
[2018-04-04] MEDS: Hydrochlorothiazide TAB* 25 MG PO SCH (09:34)
[2018-04-04] MEDS: Diltiazem CD CAP* 240 MG PO SCH (09:34)
[2018-04-04] MEDS: Famotidine TAB* 20 MG PO SCH (09:35)
[2018-04-04] MEDS: Omeprazole CAP* 20 MG PO SCH (09:35)
[2018-04-04] MEDS: Atorvastatin* 20 MG TAB PO SCH (09:35)
[2018-04-04] MEDS: Nystatin TOP POWDER* 15 GM BTL TOPICAL SCH (09:35)
--- NOTE | 2018-04-04 10:07 | EEG ---
ELECTROENCEPHALOGRAPHY REPORT: DATE OF STUDY: 04/03/18 LOCATION: The patient is an inpatient. REQUESTING PROVIDER: Mireya López. HISTORY: This is a 72-year-old woman who was admitted on 04/01/18 after she was found down on the fl oor for potentially 6 days. She was lethargic, difficult to arouse, delirious with altered mental st atus. Her son stated that she had a similar episode about 1-1/2 years ago. EEG is requested to [facility] for epileptiform abnormalities. MEDICATIONS: 1. Ibuprofen. 2. Klor-Con. 3. Hydrochlorothiazide. 4. Diltiazem. 5. Atorvastatin. 6. Omeprazole. 7. Famotidine. 8. Fentanyl patch. 9. Heparin. 10. Gabapentin. DESCRIPTION: The waking background showed appropriate organization with clearly defined anterior to posterior voltage and frequency gradients. There was a well defined posterior dominant rhythm of 7 H z, which was symmetrical and showed normal reactivity but is slower than expected for age. Anteriorl y, there is an expected pattern of lower voltage, irregular, mixed faster frequencies. Hyperventilation and photic stimulation were not performed. Attenuation of the occipital rhythm accompanied drowsiness. The sleep background was appropriately o rganized with well-developed sleep spindles and vertex waves. The sleep transient showed appropriate morphology, bilaterally synchronous and symmetrical. Throughout the recording, there were no epileptiform discharges, focal features, paroxysmal features, or significant interhemispheric asymmetries. IMPRESSION: This is a mildly abnormal waking and sleep EEG due to the presence of a mildly slow post erior dominant rhythm. These findings are suggestive of a mild, nonspecific, diffuse encephalopathy. There are no epileptiform abnormalities. [id number]/[facility] #: [id number]
[2018-04-04 13:25] VITALS: BP 139/78
--- NOTE | 2018-04-04 13:44 | DS ---
CC: NEO Daniels* DATE OF ADMISSION: 04/01/2018. DATE OF DISCHARGE: 04/04/2018. ADMITTING PHYSICIAN: Dr. Pretty Galarza. ATTENDING HOSPITALIST: Dr. Jerrod Daily* (dictated by NEO Bertrand). PRIMARY CARE PHYSICIAN: Dr. Swenson. ADMISSION DIAGNOSES: 1. Fall at home. 2. Cervical spinal stenosis. 3. Spinal degeneration. 4. Scoliosis. 5. Anxiety and depression. 6. Hypertension. 7. Ángel thyroiditis. 8. Hyperlipidemia. 9. History of T12 vertebral compression fracture. 10. History of A-fib. DISCHARGE DIAGNOSES: 1. Fall at home. 2. Cervical spinal stenosis. 3. Spinal degeneration. 4. Scoliosis. 5. Anxiety and depression. 6. Hypertension. 7. Ángel thyroiditis. 8. Hyperlipidemia. 9. History of T12 vertebral compression fracture. 10. History of A-fib. CONSULTATIONS: Dr. Berry from Neurology. PROCEDURES: None. BRIEF MEDICAL HISTORY: Ms. Willoughby is a pleasant, 72-year-old female who was brought to the emergency room on 04/01/2018 after she was found on her kitchen floor at home. According to her son, the patient has been living in her apartment and her son lives in [place], who comes once a week to check on her and make sure she has her groceries and all her needs. She does have visiting nurse services as well. The patient's son states that he has not been able to get in touch with his mother during the past week and he went to the house today and found her on the floor. Apparently, she was done for an undetermined period of time and found to have evidence of urine and stools on the floor. He said that the food that he brought the week prior was still in her refrigerator indicating that she might have been on the floor for actually a few days. The patient was very lethargic and delusional upon presentation to the ER. She was found to be in poor condition and has some pressure wounds on the back of her head, as well as the back of her neck and sacral area. She was obviously dehydrated and delirious. She received fluid resuscitation in the ED and had some imaging, including CT scans of the head and C- spine, as well as chest x- rays that revealed no evidence of any acute injury. The patient had laboratory work-up that showed leukocytosis with a white count of 15,000, as well as chemical panel revealing elevated creatinine kinase of 457, as well as troponin at baseline of 0.05. Given her clinical condition, we discussed admitting the patient under the Hospitalist Service. HOSPITAL COURSE: The patient was admitted under the Hospitalist Service on . She was kept on the telemetry floor for close observation. She did relatively well on the next morning after fluid resuscitation and p.o. fluid and food intake. Her only complaint was occasional bilateral neck pain. She does have a chronic pain issue with her entire spine with a history of scoliosis and prior surgery history of lumbar and cervical fusions. The patient continued to have some slurred speech that the son has mentioned has been more than her baseline, for which a neurologic consult was obtained by Dr. Berry. X-rays of her T-spine and L- spine revealed no evidence of any acute injury, just degenerative disk disease and osteoarthritis. The patient continued to improve slowly on a daily basis and Dr. Berry performed an electroencephalogram that revealed no evidence of seizure activity. We followed that with a brain MRI the following day that revealed no evidence of acute ischemic infarct area. The patient continued to improve and according to her son, they have been discussing placement in a senior living given the fact that she has been physically slowing down and has more needs living by herself at home. Production Laborer and returned case inspector consultation was obtained. There was a bed opening at [facility] which I think the patient will benefit greatly from doing physical therapy on a daily basis. Her home medication was resumed and her pain was well-tolerated using her analgesics and pain patch on a daily basis. The patient will be discharged to [facility] and will follow-up with her primary care physician next week. DISCHARGE MEDICATIONS: 1. Lipitor 20 mg p.o. daily. 2. Celebrex 100 mg p.o. daily. 3. Cod liver oil one cap p.o. daily. 4. Diltiazem 240 mg p.o. daily. 5. Cyclosporin ophthalmic solution 0.05 one drop in both eyes once daily. 6. Pepcid 20 mg p.o. b.i.d. 7. Fentanyl patch 75 mcg transdermal patch q.3 days. 8. Gabapentin 600 mg p.o. t.i.d. 9. Hydrochlorothiazide 25 mg p.o. daily. 10. Melatonin 3 mg p.o. at bedtime as needed for insomnia. 11. Nystatin powder apply to skin folds as instructed. 12. Protonix 40 mg p.o. daily. 13. Potassium Chloride 20 mEq p.o. daily. 14. Prednisone 30 mg p.o. daily. 15. Silvadene cream apply to superficial pressure ulcers at the posterior head, neck, and sacral area once daily. NEO BERTRAND [id number]/[facility] #: [id number] DONY
--- NOTE | 2018-04-07 00:21 | ED ---
Zhao Miller Jennifer, scribed for Uriel Higginbotham MD on 04/01/18 at 1459 . Syncope/Near Syncope - HPI Summary HPI Summary: The patient is a 72 year old female found on the floor for unknown amount of time by her son this afternoon. The patient lives in [facility] independent living. Her son last visited her one week ago, but reports he has been calling her all week with no response. Son found her this afternoon but the patient does not know how long she was there due to confusion. The patient has a very limited recollection of what happened and believes she just returned from a trip to [place]. EMS estimates the patient was there no more than 2-3 days because she didnt appear dehydrated. Son reports patient is baseline. The patient additionally defecated and urinated on herself while she was on the ground and has a non-bleeding wound at the base of her head. Patient also complains of neck pain. Patient denies abdominal pain, nausea, vomiting, chest pain, weakness , and numbness. LEVEL 5 CAVEAT: HPI LIMITED DUE TO CONFUSION. - History Of Current Complaint Hx Obtained From: Patient, EMS Onset/Duration: Other - Unknown Context: Unwitnessed Activity At Onset: Unknown - Allergies/Home Medications Allergies/Adverse Reactions: Allergies Allergy/AdvReac Type Severity Reaction Status Date / Time acetaminophen [From Vicodin] Allergy Nausea Verified 04/01/18 14:54 bupropion [From Wellbutrin] Allergy Altered Verified 04/01/18 14:54 Mental Status chlorpheniramine Allergy Unknown Verified 04/01/18 14:54 Reaction Details hydrocodone Allergy Nausea Verified 04/01/18 14:54 iodine Allergy See Comment Verified 04/01/18 14:54 phenylpropanolamine Allergy See Comment Verified 04/01/18 14:54 anesthesia Allergy Vomiting Uncoded 04/01/18 16:23 decongestants Allergy Hyperactivi Uncoded 04/01/18 16:23 ty Home Medications: Home Medications Cod Liver Oil 1 cap PO DAILY 04/01/18 [History Confirmed 04/01/18] Cyclosporine 0.05% OPHTH (NF) [Restasis 0.05% OPHTH] 1 drop BOTH EYES BID [History Confirmed 04/01/18] Gabapentin CAP(*) [Neurontin 300 CAP(*)] 600 mg PO TID MDD 1800 mg 04/01/18 [ History Confirmed 04/01/18] Hydrochlorothiazide TAB* [Hydrodiuril TAB*] 25 mg PO QAM 04/01/18 [History Confirmed 04/01/18] Melatonin (NF) 3 mg PO BEDTIME PRN 04/01/18 [History Confirmed 04/01/18] Pantoprazole TAB (NF) [Protonix TAB (NF)] 40 mg PO DAILY 04/01/18 [History Confirmed 04/01/18] celeCOXIB CAP* [Celebrex CAP*] 100 mg PO 0830,199904/01/18 [History Confirmed 04/01/18] dilTIAZem HCl [Cartia Xt] 240 mg PO DAILY 04/01/18 [History Confirmed 04/01/18] fentaNYL PATCH 75 MCG/HR* [Duragesic PATCH 75 Mcg/Hr*] 75 mcg TRANSDERM Q72H [History Confirmed 04/01/18] predniSONE TAB* [Deltasone TAB*] 30 mg PO DAILY 04/01/18 [History Confirmed ] PMH/Surg Hx/FS Hx/Imm Hx Endocrine/Hematology History: Reports: Other Endocrine/Hematological Disorders - Hx Lupus Denies: Hx Diabetes, Hx Thyroid Disease Cardiovascular History: Reports: Hx Hypercholesterolemia, Hx Hypertension, Other Cardiovascular Problems/Disorders - LBBB- BENIGN Denies: Hx Pacemaker/ICD Respiratory History: Denies: Hx Asthma, Hx Chronic Obstructive Pulmonary Disease (COPD) GI History: Reports: Hx Gastroesophageal Reflux Disease, Hx Hiatal Hernia, Other GI Disorders - DIVERTICULITIS Denies: Hx Ulcer History: Denies: Hx Renal Disease Musculoskeletal History: Reports: Hx Arthritis - BACK, HIPS, Hx Back Problems - Hx back pain, Other Musculoskeletal History - DDD, S/P CERVICAL FUSION, CERVICAL SPINAL STENOSIS Sensory History: Reports: Hx Cataracts - LILY, Hx Contacts or Glasses Denies: Hx Hearing Aid Opthamlomology History: Reports: Hx Cataracts - LILY, Hx Contacts or Glasses Neurological History: Denies: Hx CVA Psychiatric History: Reports: Hx Anxiety - R/T TMJ Denies: Hx Panic Disorder - Cancer History Cancer Type, Location and Year: SKIN CARCINOMA Hx Chemotherapy: No Hx Radiation Therapy: No - Surgical History Surgery Procedure, Year, and Place: CSP FUSED 1998 [place]. RIGHT LEG SURGERY, HARDWARE REMOVED 1999 [place]. cataracts. TUBAL LIGATION. 06/2017 -BACK SURGERY WITH CAGE/RODS-KIERSTEN Hx Anesthesia Reactions: Yes - AGITATION Infectious Disease History: No Infectious Disease History: Denies: Hx Clostridium Difficile, Hx Hepatitis, Hx Human Immunodeficiency Virus (HIV), Hx of Known/Suspected MRSA, Hx Known/Suspected VRE, Hx Known/ Suspected VRSA, History Other Infectious Disease, Traveled Outside the [place] in Last 30 Days - Family History Known Family History: Positive: Hypertension, Other - GERD, stroke (mother) - Social History Alcohol Use: None Hx Substance Use: No Substance Use Type: Reports: None Hx Tobacco Use: Yes Smoking Status (MU): Light Every Day Tobacco Smoker Type: Cigarettes Amount Used/How Often: 1 PACK A DAY Length of Time of Smoking/Using Tobacco: 50 YRS Have You Smoked in the Last Year: Yes Review of Systems ENT: Other - wound at base of head, non-bleeding Negative: Chest Pain Negative: Abdominal Pain, Vomiting, Nausea Positive: Other - Neck pain Neurological: Other - Fall, confusion Negative: Weakness, Numbness All Other Systems Reviewed And Are Negative: Yes Physical Exam - Summary Physical Exam Summary: Appearance: Well-appearing, Well-nourished Skin: Warm Eyes: Normal HENT: Large dark ulceration on posterior scalp which is tender to palpation, no surround erythema. Dry mucous membranes. Neck: Supple, nontender. Neck tilted to her left, limited UMESH, consistent with baseline according to the son. Respiratory: Clear to auscultation Cardiovascular: Normal S1, S2. No murmurs. Normal distal pulses in tibial and radial bilaterally. Abdomen: Soft, nontender Musculoskeletal: Normal, Strength/ROM Intact Neurological: Normal, A&Ox2 Psychiatric: Normal General: No acute distress Triage Information Reviewed: Yes Vital Signs On Initial Exam: Initial Vitals Temp Pulse Resp BP Pulse Ox 98.9 F 99 16 182/108 91 04/01/18 14:45 04/01/18 14:45 04/01/18 14:45 04/01/18 14:45 04/01/18 14:45 Vital Signs Reviewed: Yes Diagnostics - Vital Signs Vital Signs Temp Pulse Resp BP Pulse Ox 04/01/18 14:45 98.9 F 99 16 182/108 91 - Laboratory Lab Results: Lab Results 04/01/18 04/01/18 04/01/18 Range/Units 15:40 15:40 15:40 WBC 15.7 H (3.5-10.8) 10^3/ul RBC 4.25 (4.0-5.4) 10^6/ul Hgb 13.7 (12.0-16.0) g/dl Hct 41 (35-47) % MCV 96 (80-97) fL MCH 32 H (27-31) pg MCHC 34 (31-36) g/dl RDW 16 H (10.5-15) % Plt Count 463 H (150-450) 10^3/ul MPV 9.0 (7.4-10.4) um3 Neut % (Auto) 83.1 H (38-83) % Lymph % (Auto) 8.7 L (25-47) % Rock % (Auto) 7.6 H (0-7) % Eos % (Auto) 0.4 (0-6) % Baso % (Auto) 0.2 (0-2) % Absolute Neuts (auto) 12.8 H (1.5-7.7) 10^3/ul Absolute Lymphs (auto) 1.3 (1.0-4.8) 10^3/ul Absolute Monos (auto) 1.2 H (0-0.8) 10^3/ul Absolute Eos (auto) 0.1 (0-0.6) 10^3/ul Absolute Basos (auto) 0 (0-0.2) 10^3/ul Absolute Nucleated RBC 0 10^3/ul Nucleated RBC % 0 INR (Anticoag Therapy) 0.94 (0.77-1.02) APTT 33.7 (26.0-36.3) seconds Sodium 145 (139-145) mmol/L Potassium 3.1 L (3.5-5.0) mmol/L Chloride 102 (101-111) mmol/L Carbon Dioxide 28 (22-32) mmol/L Anion Gap 15 H (2-11) mmol/L BUN 23 (6-24) mg/dL Creatinine 0.84 (0.51-0.95) mg/dL Est GFR ( Amer) 85.2 (>60) Est GFR (Non-Af Amer) 66.3 (>60) BUN/Creatinine Ratio 27.4 H (8-20) Glucose 107 H (70-100) mg/dL Lactic Acid (0.5-2.0) mmol/L Calcium 9.3 (8.6-10.3) mg/dL Total Bilirubin 0.80 (0.2-1.0) mg/dL AST 28 (13-39) U/L ALT 20 (7-52) U/L Alkaline Phosphatase 61 (34-104) U/L Total Creatine Kinase 457 H (10-223) U/L Troponin I 0.05 H* (<0.04) ng/mL Total Protein 7.7 (6.4-8.9) g/dL Albumin 4.1 (3.2-5.2) g/dL Globulin 3.6 (2-4) g/dL Albumin/Globulin Ratio 1.1 (1-3) Urine Color Urine Appearance Urine pH (5-9) Ur Specific [place] (1.010-1.030) Urine Protein (Negative) Urine Ketones (Negative) Urine Blood (Negative) Urine Nitrate (Negative) Urine Bilirubin (Negative) Urine Urobilinogen (Negative) Ur Leukocyte Esterase (Negative) Urine WBC (Auto) (Absent) Urine RBC (Auto) (Absent) Urine Bacteria (Absent) Urine Glucose (Negative) Blood Type Antibody Screen 04/01/18 04/01/18 04/01/18 Range/Units 15:40 15:40 18:35 WBC (3.5-10.8) 10^3/ul RBC (4.0-5.4) 10^6/ul Hgb (12.0-16.0) g/dl Hct (35-47) % MCV (80-97) fL MCH (27-31) pg MCHC (31-36) g/dl RDW (10.5-15) % Plt Count (150-450) 10^3/ul MPV (7.4-10.4) um3 Neut % (Auto) (38-83) % Lymph % (Auto) (25-47) % Rock % (Auto) (0-7) % Eos % (Auto) (0-6) % Baso % (Auto) (0-2) % Absolute Neuts (auto) (1.5-7.7) 10^3/ul Absolute Lymphs (auto) (1.0-4.8) 10^3/ul Absolute Monos (auto) (0-0.8) 10^3/ul Absolute Eos (auto) (0-0.6) 10^3/ul Absolute Basos (auto) (0-0.2) 10^3/ul Absolute Nucleated RBC 10^3/ul Nucleated RBC % INR (Anticoag Therapy) (0.77-1.02) APTT (26.0-36.3) seconds Sodium (139-145) mmol/L Potassium (3.5-5.0) mmol/L Chloride (101-111) mmol/L Carbon Dioxide (22-32) mmol/L Anion Gap (2-11) mmol/L BUN (6-24) mg/dL Creatinine (0.51-0.95) mg/dL Est GFR ( Amer) (>60) Est GFR (Non-Af Amer) (>60) BUN/Creatinine Ratio (8-20) Glucose (70-100) mg/dL Lactic Acid 0.7 (0.5-2.0) mmol/L Calcium (8.6-10.3) mg/dL Total Bilirubin (0.2-1.0) mg/dL AST (13-39) U/L ALT (7-52) U/L Alkaline Phosphatase (34-104) U/L Total Creatine Kinase (10-223) U/L Troponin I (<0.04) ng/mL Total Protein (6.4-8.9) g/dL Albumin (3.2-5.2) g/dL Globulin (2-4) g/dL Albumin/Globulin Ratio (1-3) Urine Color Yellow Urine Appearance Clear Urine pH 6.0 (5-9) Ur Specific [place] 1.024 (1.010-1.030) Urine Protein 2+(100 mg/dl) A (Negative) Urine Ketones 2+ A (Negative) Urine Blood Negative (Negative) Urine Nitrate Negative (Negative) Urine Bilirubin Negative (Negative) Urine Urobilinogen Positive A (Negative) Ur Leukocyte Esterase Negative (Negative) Urine WBC (Auto) Trace(0-5/hpf) (Absent) Urine RBC (Auto) Trace(0-2/hpf) (Absent) Urine Bacteria Absent (Absent) Urine Glucose Negative (Negative) Blood Type O Positive Antibody Screen Negative Result Diagrams: 04/04/18 06:11 04/04/18 06:10 Lab Statement: Any lab studies that have been ordered have been reviewed, and results considered in the medical decision making process. - Radiology Shoulder XR Xray Interpretation: No Acute Changes - NO ACUTE OSSEOUS INJURY. IF SYMPTOMS PERSIST, RECOMMEND REPEAT IMAGING. Dr. Higginbotham has reviewed this report. Radiology Interpretation Completed By: Radiologist CXR Xray Interpretation: No Acute Changes - NO ACTIVE CARDIOPULMONARY DISEASE. Dr. Higginbotham has reviewed this report. Radiology Interpretation Completed By: Radiologist - CT C-Spine CT CT Interpretation: No Acute Changes - 1. SCOLIOSIS. 2. POST SURGICAL CHANGE. 3. DEGENERATIVE DISC DISEASE AND OSTEOARTHRITIS. 4. NO ACUTE OSSEOUS INJURY TO THE CERVICAL SPINE. Dr. Higginbotham has reviewed this report. CT Interpretation Completed By: Radiologist Brain CT CT Interpretation: No Acute Changes - NO ACUTE INTRACRANIAL PATHOLOGY. CHRONIC SMALL VESSEL ISCHEMIC CHANGES. Dr. Higginbotham has reviewed this report. CT Interpretation Completed By: Radiologist - EKG 1512 EKG Rhythm: Atrial Fibrillation - [address] Segment: Non-Specific - discordant ST changes EKG Interpretation: LBBB, not meeting Sgarbossa criteria Course/Dx - Diagnoses Provider Diagnoses: Altered mental status, unspecified - Physician Notifications Discussed Care of Patient With: Pretty Galarza Time Discussed With Above Provider: 17:50 Instructed by Provider To: Admit As Inpatient Discharge - Sign-Out/Discharge Documenting (check all that apply): Discharge/Admit/Transfer - Discharge Plan Condition: Stable Disposition: ADMITTED TO [facility] - Billing Disposition and Condition Condition: STABLE Disposition: [facility] The documentation as recorded by the Zhao mcdonald Jennifer accurately reflects the service I personally performed and the decisions made by Neftaly giraldo Dong, MD.
== END 2018-04-04 14:00 | DRG 564 ==
LOC: ED 14:43 → MEDTELE 18:40
PROVIDERS: ADMIT Internal Medicine; ATTEND Internal Medicine
DX: T79.6XXA Traumatic ischemia of muscle, initial encounter (principal); G93.40 Encephalopathy, unspecified; I48.91 Unspecified atrial fibrillation; L89.159 Pressure ulcer of sacral region, unspecified stage; L89.819 Pressure ulcer of head, unspecified stage; D72.829 Elevated white blood cell count, unspecified; E87.6 Hypokalemia; E86.0 Dehydration; I10 Essential (primary) hypertension; W19.XXXA Unspecified fall, initial encounter; R74.8 Abnormal levels of other serum enzymes; M47.9 Spondylosis, unspecified; M41.9 Scoliosis, unspecified; M35.00 Sjogren syndrome, unspecified; G47.00 Insomnia, unspecified; F41.9 Anxiety disorder, unspecified; E06.3 Autoimmune thyroiditis; E78.5 Hyperlipidemia, unspecified; C44.91 Basal cell carcinoma of skin, unspecified; R47.1 Dysarthria and anarthria; M48.02 Spinal stenosis, cervical region; M50.30 Other cervical disc degeneration, unspecified cervical region; Y92.009 Unspecified place in unspecified non-institutional (private) residence as the place of occurrence of the external cause; Z87.891 Personal history of nicotine dependence; Z79.52 Long term (current) use of systemic steroids; Z79.899 Other long term (current) drug therapy; Z82.69 Family history of other diseases of the musculoskeletal system and connective tissue; Z82.5 Family history of asthma and other chronic lower respiratory diseases; Z80.1 Family history of malignant neoplasm of trachea, bronchus and lung
CPT/HCPCS: 36415; 70450; 70551; 71045; 72070; 72100; 72125; 80053; 81003; 81015; 82550; 82553; 83605; 84484; 85025; 85610; 85730; 86850; 86900; 86901; 87040; 87086; 93005; 95819; 99285; 99406; A9270-GY; G8978-GP-CK; G8979-GP-CJ; G8987-GO-CL; G8988-GO-CI; G8989-GO-CI; J0696; J1644; J3480

== ENCOUNTER 2018-04-13 18:04 | Emergency (ER) | payer MEDICARE ==
[2018-04-13 19:12] LABS: Hematocrit 35 % (35-47); Hemoglobin 11.5 g/dl (12.0-16.0); Mean Corpuscular HGB Conc 33 g/dl (31-36); Mean Corpuscular Hemoglobin 32 pg (27-31); Mean Corpuscular Volume 96 fL (80-97); Mean Platelet Volume 7.5 um3 (7.4-10.4); Platelet Count 570 10^3/ul (150-450); Red Blood Count 3.62 10^6/ul (4.0-5.4); Red Cell Distribution Width 16 % (10.5-15); White Blood Count 17.5 10^3/ul (3.5-10.8)
--- NOTE | 2018-04-13 19:34 | RAD ---
HISTORY: Fall, head trauma COMPARISONS: April 01, 2018 TECHNIQUE: Multiple contiguous axial CT scans were obtained of the head without intravenous contrast. FINDINGS: HEMORRHAGE/INFARCT: There is no hemorrhage or acute infarct. MASSES/SHIFT: There is no mass or shift. EXTRA-AXIAL SPACES: There are no extra-axial fluid collections. SULCI AND VENTRICLES: The sulci and ventricles are normal in size and position for the patient's stated age. CEREBRUM: There is hypoattenuation of the periventricular and subcortical white matter. BRAINSTEM: There are no focal parenchymal abnormalities. CEREBELLUM: There are no focal parenchymal abnormalities. VESSELS: The vessels are grossly normal. PARANASAL SINUSES: The paranasal sinuses are clear. ORBITS: The orbits are unremarkable. BONES AND SOFT TISSUE: There is soft tissue swelling along the left parietal scalp. OTHER: None IMPRESSION: NO ACUTE INTRACRANIAL PATHOLOGY. CHRONIC SMALL VESSEL ISCHEMIC CHANGE
[2018-04-13 19:35] LABS: EGFR Non-African American 46.1 (>60)
--- NOTE | 2018-04-13 19:35 | RAD ---
HISTORY: Fall, head injury COMPARISONS: April 01, 2018 TECHNIQUE: Multiple contiguous axial CT scans were obtained of the cervical spine without intravenous contrast, with coronal and sagittal multiplanar reformations. FINDINGS: BRAIN: The visualized brain is unremarkable CENTRAL CANAL: Evaluation of the central canal is limited on CT technique; however, there is no obvious canalicular mass or epidural hemorrhage. ALIGNMENT: The alignment is normal, without subluxation or dislocation. VERTEBRAL BODIES: Incidentally noted is a dysraphic defect of the posterior arch of C1. There is postsurgical change to C4, C5, and C6. There is multilevel anterolateral marginal osteophyte formation. There is no displaced fracture. There is diffuse osteopenia. JOINTS: There is uncovertebral and facet osteoarthritis. MUSCULATURE: Unremarkable INTERVERTEBRAL DISCS: There is diffuse loss of intervertebral disc height. AXIAL IMAGES: On axial images, there is no significant osseous neural foraminal area or central canal stenosis. SOFT TISSUES: The visualized soft tissues of the neck are unremarkable. The prevertebral fat stripe is preserved. OTHER: None. IMPRESSION: 1. OSTEOPENIA. 2. DEGENERATIVE DISC DISEASE AND OSTEOARTHRITIS. 3. POSTSURGICAL CHANGE. 4. NO ACUTE OSSEOUS INJURY TO THE CERVICAL SPINE.
[2018-04-13 19:48] LABS: ABS Basophils 0 10^3/ul (0-0.2); ABS Eosinophils 0 10^3/ul (0-0.6); ABS Lymphocytes 0.6 10^3/ul (1.0-4.8); ABS Monocytes 0.6 10^3/ul (0-0.8); ABS Neutrophils 16.3 10^3/ul (1.5-7.7); ABS Nucleated RBC 0 10^3/ul; Eosinophil % 0 % (0-6); Lymphocyte % 3.2 % (25-47); Nucleated Red Blood Cells % 0
[2018-04-13] MEDS ORDERED: Lidocaine 1% INJ* 10 MG/ML 30 ML SDV ONE (20:08)
[2018-04-13] MEDS ORDERED: Tetan/Diph/Pertus SYR(Tdap)* 0.5 ML SYR(BOOSTRIX) use SYR IM ONE (21:11)
[2018-04-13] MEDS ORDERED: Morphine VIAL* 4 MG/ML VIAL (1 ml vial) IV ONE ×2 (21:17→23:45)
--- NOTE | 2018-04-13 21:28 | RAD ---
HISTORY: Fall, left-sided rib pain COMPARISONS: None relevant VIEWS: 7, Frontal view of the chest with frontal and oblique views of the left hemithorax FINDINGS: There are multiple minimally displaced fractures of the left hemithorax, including the left fifth, sixth, seventh, and eighth ribs. There is no appreciable pneumothorax. The patient is status post spinal fusion. IMPRESSION: MULTIPLE LEFT-SIDED RIB FRACTURES. NO APPRECIABLE PNEUMOTHORAX.
[2018-04-13] MEDS ORDERED: NS 0.9% 1000 ML* 1,000 ML IV SCH (21:30)
[2018-04-13 22:10] LABS: Urine Appearance Clear; Urine Blood 1+ (Negative); Urine Color Yellow; Urine Ketones Negative (Negative); Urine Protein Negative (Negative); Urine Specific Gravity 1.014 (1.010-1.030); Urine Urobilinogen Negative (Negative)
--- NOTE | 2018-04-13 23:12 | ED ---
I, Tatyana Vickers, scribed for Della Fontanez MD on 04/13/18 at 2256 . Progress - Progress Note Progress Note: Pt is signed out from Dr. Verdin, pending dispo plan. Re-Evaluation - Re-Evaluation First Eval Re-Evaluation Time: 22:56 Change: Improved Comment: Spoke with pt, who states that pain is better. Reports that she tripped over a sneaker and landed on her left side. Course/Dx - Course Course Of Treatment: 72 y/o F, signed out from Dr. Verdin awaiting dispo plan, complains of left rib pain s/p tripping over sneaker. Pt was seen by hospitalist mid level, Diony Haynes, who stated that he dictated consult in pt' s chart. Pt is a trauma case and therefore cannot be admitted to [facility] because she needs trauma center. Spoke with trauma center at [facility]. Pt accepted by Dr. Nj to [facility] ED. - Diagnoses Provider Diagnoses: Fracture of multiple ribs of left side Discharge - Sign-Out/Discharge Documenting (check all that apply): Discharge/Admit/Transfer - Discharge Plan Condition: Stable Disposition: [facility] Referrals: Nikolas PABON-C,Jennifer Perry [Primary Care Provider] - The documentation as recorded by the Rancho mcdonald Tiffany accurately reflects the service I personally performed and the decisions made by me, Della Fontanez MD.
[2018-04-14 00:11] VITALS: BP 177/89
--- NOTE | 2018-04-14 21:28 | CONS ---
CC: [facility] * CONSULTATION REPORT: DATE OF CONSULT: 04/13/18 - EMERGENCY DEPT REQUESTING PHYSICIANS FOR CONSULT: Dr. Verdin and Dr. Fontanez from the emergency room. ATTENDING PHYSICIAN WHILE IN THE HOSPITAL: Dr. Jerrod Daily (report dictated by Diony Haynes NP). PRIMARY CARE PROVIDER: [facility]. REASON FOR MEDICAL CONSULTATION: Evaluation for admission to the hospital. CHIEF COMPLAINT: Fall. HISTORY OF PRESENT ILLNESS: Mrs. Willoughby is a 72-year-old female patient, who was actually just in our hospital couple of weeks ago for evaluation of fall. The patient was discharged to [facility]. Today at [facility], according to the patient, she had visitors there. There was a 2-year-old that she said trying to leave the facility and she became concerned, she was rushing and ran to prevent the child from leaving and she sustained a fall. She said she fell over. She tripped over 2 shoes and she fell backwards. She said she hit her head on the way down. She states that she hit her head on the floor. Fall was witnessed. There were no reports of loss of consciousness, but she does state that she is feeling lightheaded now and she says that she has been feeling dizzy. She fell, landed basically on her left side. The prison staff called 911 immediately. She sustained a significant laceration to the head. She said she had no chest pain prior to or after. No reports of loss of consciousness. Again, no shortness of breath. She came in to the ED, was evaluated. It was noted she has significant again laceration to her head. In addition to this, she had 4 rib fractures to her left ribs. Because of this, we were asked to evaluate for admission. PAST MEDICAL HISTORY: Significant for: 1. Cervical spinal stenosis. 2. Degenerative disk disease. 3. Scoliosis. 4. Anxiety. 5. Depression. 6. Ángel's thyroiditis. 7. Hypertension. 8. Hyperlipidemia. 9. History of T12 compression fracture. 10. AFib. 11. She also has a history of possible scleroderma. PAST SURGICAL HISTORY: She said she has had cataract surgery. HOME MEDICATIONS: Include: 1. Prednisone 30 mg daily. 2. Fentanyl patch 75 mcg transdermal every 72 hours. 3. Diltiazem CD 240 mg daily. 4. Celebrex 100 mg daily. 5. Silvadene 1 application topically daily. 6. Potassium 20 mEq daily. 7. Protonix 40 mg daily. 8. Nystatin powder 1 application topically twice a day. 9. Melatonin 3 mg at bedtime as needed. 10. Hydrochlorothiazide 25 mg daily. 11. Neurontin 600 mg p.o. t.i.d. 12. Pepcid 40 mg p.o. b.i.d. 13. Restasis 1 drop both eyes b.i.d. 14. Cod liver oil 1 capsule p.o. daily. 15. Lipitor 20 mg daily. ALLERGIES TO MEDICATIONS: Include TYLENOL, BUPROPION, HYDROCODONE, IODINE, PHENYLPROPANOLAMINE, ANESTHESIA, DECONGESTANTS, and CHLORPHENIRAMINE. FAMILY HISTORY: Mother had asthma and she had father with lung cancer. SOCIAL HISTORY: She is a smoker. She was smoking for about 50 years. She does not drink alcohol. She was residing at [facility]. Surrogate decision maker is her son. REVIEW OF SYSTEMS: There is no documented fever. She denies having any significant weight change. There is no double vision. No ear discharge. There is no rhinorrhea. There is no sore throat, no thyroid enlargement. She denied having any chest pain. No orthopnea, nocturnal dyspnea. No abdominal pain. No nausea, no vomiting, no dysuria, no frequency, no seizure, no loss of consciousness, no pruritus, no skin ulcerations. Review of 14 systems completed , all others negative. PHYSICAL EXAM: Vital Signs: Blood pressure 138/82, pulse 77, respirations 18, O2 saturations 92%, temperature 98.1. General: At this time, Ms. Willoughby is a 72 -year- old female patient. She is sitting in the ED stretcher. She does not appear to be in any acute distress. HEENT: Atraumatic with the exception she has a significant laceration noted to the left occipital area of her head, which is stapled. There is a significant amount of hematoma. She does have a unstageable pressure ulcer noted to the cervical spine posteriorly as well just about C3-C4, which she says is chronic. Otherwise atraumatic. Eyes: EOMs are intact. Sclerae anicteric and not pale. Neck: Supple. Throat: Oral mucosa appears to be dry. No oropharyngeal erythema. Heart: Sounds S1, S2. She has regular rate and rhythm. No murmurs, rubs, or gallops. Lungs: Clear to auscultation. No wheezes, rales or rhonchi. Abdomen: Soft, flat, nontender. Bowel sounds present. Extremities: Pulses were 2+ throughout. She is moving all 4 extremities with 5/5 strength. Neurologically, the patient is awake. She is alert, she is oriented to person, place, but not to time. Her speech was clear. Tongue is midline. Cinder Pit Crane Operator were equal. She had no gross focal deficits. Skin: Again, she has laceration on to the left occipital area. In addition to this, she has a pressure ulcer noted to the back of her head, which is again pressure ulcer probably is unstageable. Otherwise, skin intact. DIAGNOSTIC STUDIES/LAB DATA: The labs today revealing WBC of 15.5, RBC of 3.62 , hemoglobin 11.5, hematocrit 35, platelet count of 570. Sodium 135, potassium 5, chloride 97, bicarb 30, BUN 27, creatinine 1.15 calcium 9.6. Total bili 0.4 , AST 15, ALT 15, alk phos 3, CK 93, albumin 3.8. Urine showed 1+ blood, 3+ rbc 's. She had imaging in the ED. She had a brain CT, which showed no acute intracranial pathology, chronic small vessel ischemic change. She had a cervical spine CT, showed osteopenia, degenerative disk disease, and osteoarthritis. Postsurgical change, no acute osseous injury to the cervical spine. There was a rib x-ray obtained today, which showed multiple left-sided rib fractures. No appreciable pneumothorax. He had fractures including the fifth, sixth, seventh, and eighth ribs. In addition to this, she had an EKG obtained today as well, which does show a normal sinus rhythm today. She had inverted T waves in V4, 5, and 6. V4 is new, they are not new in V5 and 6. She does appear to have a left bundle branch block, which is not new. Old medical records reviewed. ASSESSMENT AND PLAN: Mrs. Willoughby is a 72-year-old female patient with multiple medical problems coming in our emergency department today with complaints of a fall that was mechanical. On evaluation in the ED, she was found to have multiple rib fractures on the left side. We were asked to evaluate for admission. Recommendations at this point are: For the left rib fracture, she is at significant risk for complications given her age. She has an increased risk of mortality given the fact that she has got greater than 3 rib fractures on that left side, they are minimally displaced and the fact that she also has a history of long-term smoking increases the risk for complications as well. I did touch base with our surgeon on-call. I also touched base with our media relations specialist on-call. It was felt that the patient would benefit from having backup at a trauma center given the extent of the rib fractures in case there were any complications. I did discuss this with my attending Dr. Daily, he was in agreement. It was felt that she would again be benefitted transfer to a tertiary center where there was thoracic backup in case again any complications arise from these significant fractures. So therefore my recommendation is to transfer the patient. Patient prefers to be transferred to [facility]. I did make these recommendations to Dr. Fontanez. I would recommend for the leukocytosis again panculturing her and I would defer further management to tertiary care center for the rib fractures. Again, she is at risk for pulmonary contusion. TIME SPENT: Time spent on the consult was 60 minutes; greater than half the time was spent [id number] with the patient obtaining my history and physical, other half the time spent going over the plan of care with the patient and implementing plan of care. I did discuss the plan of care with my attending, Dr. Daily; he was in agreement with the plan. I also again ran the case with 2 specialists. DIONY HAYNES, CARINE [id number]/[facility] #: [id number] DONY
--- NOTE | 2018-04-15 09:49 | ED ---
Shiela Miller Elizabeth, scribed for Francisco Verdin MD on 04/13/18 at 1907 . Complex/Multi-Sys Presentation - HPI Summary HPI Summary: This patient is a 72 year old F BIBA to [facility] with a chief complaint of left rib pain and laceration to the back of her head following a fall from a standing position that occurred earlier today. The patient fell at the intermediate and the fall was witnessed. Per triage report, witnesses report that the patient tripped over her shoes and fell backward onto the floor and hit her head. The patient rates the pain 9/10 in severity. Symptoms aggravated by nothing. Symptoms alleviated by nothing. Patient reports no LOC. The patient notes that she fell 1 week ago, also hitting her head and causing a laceration. Patient denies taking any bloodthinners. - History Of Current Complaint Chief Complaint: EDHeadInjury Time Seen by Provider: 04/13/18 18:16 Hx Obtained From: Patient Onset/Duration: Sudden Onset, Lasting Hours, Still Present Timing: Constant Severity Currently: Moderate Severity Initially: Moderate Location: Pain At: - back of head, left side of ribs Aggravating Factor(s): nothing Alleviating Factor(s): nothing Associated Signs And Symptoms: Positive: Recent Trauma - fall from standing position, Other - laceration to back of head - Allergies/Home Medications Allergies/Adverse Reactions: Allergies Allergy/AdvReac Type Severity Reaction Status Date / Time acetaminophen [From Vicodin] Allergy Nausea Verified 04/01/18 14:54 bupropion [From Wellbutrin] Allergy Altered Verified 04/01/18 14:54 Mental Status chlorpheniramine Allergy Unknown Verified 04/01/18 14:54 Reaction Details hydrocodone Allergy Nausea Verified 04/01/18 14:54 iodine Allergy See Comment Verified 04/01/18 14:54 phenylpropanolamine Allergy See Comment Verified 04/01/18 14:54 anesthesia Allergy Vomiting Uncoded 04/01/18 16:23 decongestants Allergy Hyperactivi Uncoded 04/01/18 16:23 ty PMH/Surg Hx/FS Hx/Imm Hx Endocrine/Hematology History: Reports: Other Endocrine/Hematological Disorders - Hx Lupus Denies: Hx Diabetes, Hx Thyroid Disease Cardiovascular History: Reports: Hx Hypercholesterolemia, Hx Hypertension, Other Cardiovascular Problems/Disorders - LBBB- BENIGN Denies: Hx Pacemaker/ICD Respiratory History: Reports: Hx Pleural Effusion Denies: Hx Asthma, Hx Chronic Obstructive Pulmonary Disease (COPD) GI History: Reports: Hx Gastroesophageal Reflux Disease, Hx Hiatal Hernia, Other GI Disorders - DIVERTICULITIS Denies: Hx Ulcer History: Denies: Hx Renal Disease Musculoskeletal History: Reports: Hx Arthritis - BACK, HIPS, Hx Back Problems - Hx back pain, Other Musculoskeletal History - DDD, S/P CERVICAL FUSION, CERVICAL SPINAL STENOSIS Sensory History: Reports: Hx Cataracts - LILY, Hx Contacts or Glasses Denies: Hx Hearing Aid Opthamlomology History: Reports: Hx Cataracts - LILY, Hx Contacts or Glasses Neurological History: Reports: Hx Headaches Denies: Hx CVA, Hx Dementia, Hx Seizures Psychiatric History: Reports: Hx Anxiety - 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 RIGHT LEG SURGERY, HARDWARE REMOVED 1999 [place]. cataracts. TUBAL LIGATION. 06/2017 -BACK SURGERY WITH CAGE/RODS-[facility] Anesthesia Reactions: Yes - AGITATION Infectious Disease History: No Infectious Disease History: Denies: Hx Clostridium Difficile, Hx Hepatitis, Hx Human Immunodeficiency Virus (HIV), Hx of Known/Suspected MRSA, Hx Shingles, Hx Tuberculosis, Hx Known/ Suspected VRE, Hx Known/Suspected VRSA, History Other Infectious Disease, Traveled Outside the in Last 30 Days - Family History Known Family History: Positive: Hypertension, Other - GERD, stroke (mother) - Social History Alcohol Use: None Hx Substance Use: No Substance Use Type: Reports: None Hx Tobacco Use: Yes Smoking Status (MU): Light Every Day Tobacco Smoker Type: Cigarettes Amount Used/How Often: 1 PACK A DAY Length of Time of Smoking/Using Tobacco: 50 YRS Have You Smoked in the Last Year: Yes Review of Systems Negative: Fever Positive: Chest Pain - left side rib pain Negative: Vomiting Skin: Other - laceration to back of head Positive: Headache - back of head All Other Systems Reviewed And Are Negative: Yes Physical Exam - Summary Physical Exam Summary: VITAL SIGNS: Reviewed. GENERAL: Patient is a well-developed and nourished FEMALE who is lying comfortable in the stretcher. Patient is not in any acute respiratory distress. HEAD AND FACE: No ecchymosis, hematomas or skull depressions. No sinus tenderness. 3.5 cm laceration to the occipital region of the head. EYES: PERRLA, EOMI x 2, No injected conjunctiva, no nystagmus. EARS: Hearing grossly intact. Ear canals and tympanic membranes are within normal limits. MOUTH: Oropharynx within normal limits. NECK: Supple, trachea is midline, no adenopathy, no JVD, no carotid bruit, no c- spine tenderness, neck with full ROM. Healing wound on the left side of the neck. CHEST: Symmetric, no tenderness at palpation LUNGS: Clear to auscultation bilaterally. No wheezing or crackles. CVS: Regular rate and rhythm, S1 and S2 present, no murmurs or gallops appreciated. ABDOMEN: Soft, tenderness to the left rib cage. No signs of distention. No rebound no guarding, and no masses palpated. Bowel sounds are normal. Decubitus ulcer in the lumbosacral area which is clean, dry, and intact. EXTREMITIES: FROM in all major joints, no edema, no cyanosis or clubbing. NEURO: Alert and oriented x 3. No acute neurological deficits. Speech is normal and follows commands. SKIN: Dry and warm Triage Information Reviewed: Yes Vital Signs On Initial Exam: Initial Vitals Temp Pulse Resp BP Pulse Ox 98.1 F 74 18 148/80 92 04/13/18 18:17 04/13/18 18:17 04/13/18 18:17 04/13/18 18:17 04/13/18 18:17 Vital Signs Reviewed: Yes Procedures - Laceration/Wound Repair #1 Location: head - left occipital region Description: Linear Length, Depth and Shape: 3.5 cm Laceration/Wound Explored: clean, no foreign body removed Closure: Single Layer Suture Type: Nylon Number of Sutures: 10 Sterile Dressing Applied?: Yes Diagnostics - Vital Signs Vital Signs Temp Pulse Resp BP Pulse Ox 04/13/18 18:17 98.1 F 74 18 148/80 92 - Laboratory Lab Results: Lab Results 04/13/18 04/13/18 04/13/18 Range/Units 18:56 18:56 21:57 WBC 17.5 H (3.5-10.8) 10^3/ul RBC 3.62 L (4.0-5.4) 10^6/ul Hgb 11.5 L (12.0-16.0) g/dl Hct 35 (35-47) % MCV 96 (80-97) fL MCH 32 H (27-31) pg MCHC 33 (31-36) g/dl RDW 16 H (10.5-15) % Plt Count 570 H D (150-450) 10^3/ul MPV 7.5 (7.4-10.4) um3 Neut % (Auto) 93.2 H (38-83) % Lymph % (Auto) 3.2 L (25-47) % Scott % (Auto) 3.5 (0-7) % Eos % (Auto) 0 (0-6) % Baso % (Auto) 0.1 (0-2) % Absolute Neuts (auto) 16.3 H (1.5-7.7) 10^3/ul Absolute Lymphs (auto) 0.6 L (1.0-4.8) 10^3/ul Absolute Monos (auto) 0.6 (0-0.8) 10^3/ul Absolute Eos (auto) 0 (0-0.6) 10^3/ul Absolute Basos (auto) 0 (0-0.2) 10^3/ul Absolute Nucleated RBC 0 10^3/ul Nucleated RBC % 0 Hypochromasia 1+ Sodium 135 L (139-145) mmol/L Potassium 5.0 (3.5-5.0) mmol/L Chloride 97 L (101-111) mmol/L Carbon Dioxide 30 (22-32) mmol/L Anion Gap 8 (2-11) mmol/L BUN 27 H (6-24) mg/dL Creatinine 1.15 H (0.51-0.95) mg/dL Est GFR ( Amer) 59.3 (>60) Est GFR (Non-Af Amer) 46.1 (>60) BUN/Creatinine Ratio 23.5 H (8-20) Glucose 154 H (70-100) mg/dL Calcium 9.6 (8.6-10.3) mg/dL Total Bilirubin 0.40 (0.2-1.0) mg/dL AST 15 (13-39) U/L ALT 15 (7-52) U/L Alkaline Phosphatase 53 (34-104) U/L Total Creatine Kinase 93 (10-223) U/L Total Protein 6.9 (6.4-8.9) g/dL Albumin 3.8 (3.2-5.2) g/dL Globulin 3.1 (2-4) g/dL Albumin/Globulin Ratio 1.2 (1-3) Urine Color Yellow Urine Appearance Clear Urine pH 6.0 (5-9) Ur Specific [place] 1.014 (1.010-1.030) Urine Protein Negative (Negative) Urine Ketones Negative (Negative) Urine Blood 1+ A (Negative) Urine Nitrate Negative (Negative) Urine Bilirubin Negative (Negative) Urine Urobilinogen Negative (Negative) Ur Leukocyte Esterase Negative (Negative) Urine WBC (Auto) Trace(0-5/hpf) (Absent) Urine RBC (Auto) 3+(>10/hpf) A (Absent) Ur Squamous Epith Cells Present A (Absent) Urine Bacteria Absent (Absent) Hyaline Casts Present A (Absent) Urine Glucose Negative (Negative) Result Diagrams: 04/13/18 18:56 04/13/18 18:56 Lab Statement: Any lab studies that have been ordered have been reviewed, and results considered in the medical decision making process. - Radiology Left Ribs XR Xray Interpretation: Positive (See Comments) - IMPRESSION: MULTIPLE LEFT-SIDED RIB FRACTURES. NO APPRECIABLE PNEUMOTHORAX. Dr. Verdin has reviewed this report. Radiology Interpretation Completed By: Radiologist - CT CT Brain CT Interpretation: No Acute Changes - IMPRESSION: NO ACUTE INTRACRANIAL PATHOLOGY. CHRONIC SMALL VESSEL ISCHEMIC CHANGE. Dr. Verdin has reviewed this report. CT Interpretation Completed By: Radiologist CT Cervical Spine CT Interpretation: No Acute Changes - IMPRESSION: 1. OSTEOPENIA. 2. DEGENERATIVE DISC DISEASE AND OSTEOARTHRITIS. 3. POSTSURGICAL CHANGE. 4. NO ACUTE OSSEOUS INJURY TO THE CERVICAL SPINE. Dr. Verdin has reviewed this report. CT Interpretation Completed By: Radiologist - EKG 19:31 Cardiac Rate: NL - at 71 BPM EKG Rhythm: Sinus Rhythm EKG Interpretation: Sinus Rhythm, LBBB EKG Comparison: No Significant Change - from EKG on 04/01/18 Re-Evaluation - Re-Evaluation 1st re-eval Re-Evaluation Time: 20:30 Change: Improved Comment: The 3.5 cm laceration to the left occipital region was closed with 10 sutures. The patient has a healing wound on the left side of the neck and a decubitus ulcer in the lumbosacral area which is clean, dry, and intact. Complex Multi-Symp Course/Dx Assessment/Plan: This patient is a 72-year-old female who presents to the emergency department with a chief complaint of an accidental fall. She reports that she fell backwards and now she is complaining of a headache and left rib cage pain. No LOC. Blood test results with a WBC count of 17.5, platelets of 570, sodium 135 BUN is [address] impression: No acute intracranial pathology, chronic small vessel ischemic change present. Cervical spine CT impression: Osteopenia, degenerative disc disease and osteoarthritis. Postsurgical changes. No acute osseous injury of the cervical spine. X-ray of the ribs: Multiple rib fractures. Laceration in the scalp was repaired without any complications. Patient was given Morphine for the pain. Re-evaluated the patient multiple times and she reports feeling better. Patient feeling better after Morphine but she still ? tib pain 4-5/10. I believe patient needs to be admitted for pain control. This time I discussed my physical exam, findings and test results with Dr. Sifuentes from the hospitalist services. He reported that he is going to. The patient first before admission. Therefore the patient will be signed out to Dr. Fontanez at shift change. Patient is hemodynamically stable alert and 3 - Diagnoses Provider Diagnoses: Fracture of multiple ribs of left side, Accidental fall, Scalp laceration, Head contusion - Physician Notifications Discussed Care Of Patient With: Jerrod Daily Time Discussed With Above Provider: 21:30 Instructed by Provider To: Will See In ED Discharge - Sign-Out/Discharge Documenting (check all that apply): Sign-Out Patient Signing out patient TO: Della Fontanez - Discharge Plan Condition: Stable Disposition: TRANS HIGHER LVL OF CARE FAC Discharge Disposition Comment: Patient is signed out to Dr. Fontanez from Dr. Verdin upon shift change. Referrals: Nikolas NARAYAN,Jennifer Perry [Primary Care Provider] - - Billing Disposition and Condition Condition: STABLE Disposition: EMTALA The documentation as recorded by the Shiela mcdonald Elizabeth accurately reflects the service I personally performed and the decisions made by , Francisco Verdin MD.
== END 2018-04-14 00:10 | disposition short-term general hospital (02) ==
LOC: ED 18:04
DX: S22.49XA Multiple fractures of ribs, unspecified side, initial encounter for closed fracture (principal); S00.93XA Contusion of unspecified part of head, initial encounter; S01.91XA Laceration without foreign body of unspecified part of head, initial encounter; R07.81 Pleurodynia; F17.210 Nicotine dependence, cigarettes, uncomplicated; R51 Headache; W19.XXXA Unspecified fall, initial encounter; Y92.129 Unspecified place in nursing home as the place of occurrence of the external cause
CPT/HCPCS: 12002; 36415; 70450; 72125; 80053; 81003; 81015; 82550; 85025; 87077; 87086; 87186; 90471; 90715; 93005; 96374; 99285; J2270

== ENCOUNTER 2018-11-17 10:37 | Inpatient (IN) | payer MEDICARE, MEDICAID ==
--- NOTE | 2018-11-17 10:47 | ED ---
Respiratory - History of Current Complaint Stated Complaint: SHORT OF BREATH - Allergy/Home Medications Allergies/Adverse Reactions: Allergies Allergy/AdvReac Type Severity Reaction Status Date / Time acetaminophen [From Vicodin] Allergy Nausea Verified 04/01/18 14:54 bupropion [From Wellbutrin] Allergy Altered Verified 04/01/18 14:54 Mental Status chlorpheniramine Allergy Unknown Verified 04/01/18 14:54 Reaction Details hydrocodone Allergy Nausea Verified 04/01/18 14:54 iodine Allergy See Comment Verified 04/01/18 14:54 phenylpropanolamine Allergy See Comment Verified 04/01/18 14:54 anesthesia Allergy Vomiting Uncoded 04/01/18 16:23 decongestants Allergy Hyperactivi Uncoded 04/01/18 16:23 ty PMH/Surg Hx/FS Hx/Imm Hx Endocrine/Hematology History: Reports: Other Endocrine/Hematological Disorders - Hx Lupus Denies: Hx Diabetes, Hx Thyroid Disease Cardiovascular History: Reports: Hx Hypercholesterolemia, Hx Hypertension, Other Cardiovascular Problems/Disorders - LBBB- BENIGN Denies: Hx Pacemaker/ICD Respiratory History: Reports: Hx Pleural Effusion Denies: Hx Asthma, Hx Chronic Obstructive Pulmonary Disease (COPD) GI History: Reports: Hx Gastroesophageal Reflux Disease, Hx Hiatal Hernia, Other GI Disorders - DIVERTICULITIS Denies: Hx Ulcer History: Denies: Hx Renal Disease Musculoskeletal History: Reports: Hx Arthritis - BACK, HIPS, Hx Back Problems - Hx back pain, Other Musculoskeletal History - DDD, S/P CERVICAL FUSION, CERVICAL SPINAL STENOSIS Sensory History: Reports: Hx Cataracts - LILY, Hx Contacts or Glasses Denies: Hx Hearing Aid Opthamlomology History: Reports: Hx Cataracts - LILY, Hx Contacts or Glasses Neurological History: Reports: Hx Headaches Denies: Hx CVA, Hx Dementia, Hx Seizures Psychiatric History: Reports: Hx Anxiety - R/T TMJ Denies: Hx Panic Disorder - Cancer History Cancer Type, Location and Year: SKIN CARCINOMA Hx Chemotherapy: No Hx Radiation Therapy: No - Surgical History Surgery Procedure, Year, and Place: CSP FUSED 1998 [place]. RIGHT LEG SURGERY, HARDWARE REMOVED 1999 [place]. cataracts. TUBAL LIGATION. 06/2017 -BACK SURGERY WITH CAGE/RODS-[facility] Anesthesia Reactions: Yes - AGITATION Infectious Disease History: Denies: Hx Clostridium Difficile, Hx Hepatitis, Hx Human Immunodeficiency Virus (HIV), Hx of Known/Suspected MRSA, Hx Shingles, Hx Tuberculosis, Hx Known/ Suspected VRE, Hx Known/Suspected VRSA, History Other Infectious Disease - Family History Known Family History: Positive: Hypertension, Other - GERD, stroke (mother) - Social History Alcohol Use: None Hx Substance Use: No Substance Use Type: Reports: None Hx Tobacco Use: Yes Smoking Status (MU): Light Every Day Tobacco Smoker Type: Cigarettes Amount Used/How Often: 1 PACK A DAY Length of Time of Smoking/Using Tobacco: 50 YRS Have You Smoked in the Last Year: Yes Discharge - Discharge Plan Referrals: Nikolas NARAYAN,Jennifer Perry [Primary Care Provider] - - Attestation Statements Document Initiated by Scribe: Yes
[2018-11-17] MEDS ORDERED: Albuterol/Ipratropium NEB.SOL* Albuterol 2.5 MG/Ipratropium 0.5 MG 3 ML INH ONE ×2 (10:49→12:34)
[2018-11-17] MEDS ORDERED: NS 0.9% 500 ML* 500 ML IV ONE (10:49)
[2018-11-17] MEDS ORDERED: methylPREDNISolone 125 MG* 2 ML VIAL IV ONE (10:50)
--- NOTE | 2018-11-17 10:54 | ED ---
Shortness of Breath - HPI Summary HPI Summary: A 72 y/o female brought in by ambulance presents to the ED c/o SOB and cough. In the ED room, the patient has a pulse of 104 BPM and O2 saturation of 93%. As per triage, "Patient nurse at [facility] stated that patient sat's were in the 80's and BP was low. Patient on 2L with sats in 90's BP WNL, HR". As per nurse, the patient has a history of bronchitis who recently started smoking. Patient has a cough and has no fever. According to the patient, has had SOB and cough for the past week, coupled with mild abdominal pain. Her cough is productive with yellow flem. She had a Influenza shot and noted that a nebulizer usually helps her SOB. - History of Current Complaint Chief Complaint: EDShortnessOfBreath Hx Obtained From: Patient Onset/Duration: Sudden Onset, Lasting Weeks - 1 WEEK, Still Present Timing: Constant Current Severity: None Dyspnea At: Rest Aggrevating Factors: Nothing Alleviating Factors: Nothing Associated Signs & Symptoms: Cough (Productive) - YELLOW FLEM - Allergy/Home Medications Allergies/Adverse Reactions: Allergies Allergy/AdvReac Type Severity Reaction Status Date / Time acetaminophen [From Vicodin] Allergy Nausea Verified 04/01/18 14:54 bupropion [From Wellbutrin] Allergy Altered Verified 04/01/18 14:54 Mental Status chlorpheniramine Allergy Unknown Verified 04/01/18 14:54 Reaction Details hydrocodone Allergy Nausea Verified 04/01/18 14:54 iodine Allergy See Comment Verified 04/01/18 14:54 phenylpropanolamine Allergy See Comment Verified 04/01/18 14:54 anesthesia Allergy Vomiting Uncoded 04/01/18 16:23 decongestants Allergy Hyperactivi Uncoded 04/01/18 16:23 ty Home Medications: Home Medications Acetaminophen [Tylenol Extra Strength] 1,000 mg PO Q6HR PRN 11/17/18 [History Confirmed 11/17/18] Cholecalciferol TAB* [Vitamin D TAB*] 50,000 unit PO MONTHLY 11/17/18 [History Confirmed 11/17/18] Cod Liver Oil 1 cap PO DAILY 11/17/18 [History Confirmed 11/17/18] Cyanocobalamin TAB* [Vitamin B12 TAB*] 500 mcg PO DAILY 11/17/18 [History Confirmed 11/17/18] DOXYcycline CAP(*) [DOXYcycline 100MG CAP(*)] 100 mg PO BID 11/17/18 [History Confirmed 11/17/18] Escitalopram (NF) [Lexapro 10 mg (NF)] 10 mg PO QAM 11/17/18 [History Confirmed 11/17/18] Famotidine TAB* [Pepcid 20 MG TAB*] 40 mg PO DAILY 11/17/18 [History Confirmed 11/17/18] Hydrochlorothiazide TAB* [Hydrodiuril TAB*] 25 mg PO QAM 11/17/18 [History Confirmed 11/17/18] Ipratropium/Albuterol Sulfate [Iprat-Albut 0.5-3(2.5) mg/3 ml] 3 ml INH TID 03/02 [History Confirmed 11/17/18] Levothyroxine TAB* [Synthroid TAB*] 112 mcg PO QAM 11/17/18 [History Confirmed 11/17/18] Naproxen Sodium [Aleve] 220 mg PO Q8HR 11/17/18 [History Confirmed 11/17/18] diPHENhydraMINE PO* [Benadryl PO 25 MG TAB*] 25 mg PO BEDTIME 11/17/18 [History Confirmed 11/17/18] dilTIAZem HCl [Diltiazem 24Hr ER] 240 mg PO DAILY 11/17/18 [History Confirmed ] guaiFENesin ER TAB [Mucinex*] 600 mg PO BID 11/17/18 [History Confirmed 11/17/18 ] predniSONE TAB* [Deltasone 20 MG TAB*] 20 mg PO DAILY 11/17/18 [History Confirmed 11/17/18] traMADol TAB* [Ultram*] 50 mg PO Q6HR PRN 11/17/18 [History Confirmed 11/17/18] PMH/Surg Hx/FS Hx/Imm Hx Endocrine/Hematology History: Reports: Other Endocrine/Hematological Disorders - Hx Lupus Denies: Hx Diabetes, Hx Thyroid Disease Cardiovascular History: Reports: Hx Hypercholesterolemia, Hx Hypertension, Other Cardiovascular Problems/Disorders - LBBB- BENIGN Denies: Hx Pacemaker/ICD Respiratory History: Reports: Hx Pleural Effusion Denies: Hx Asthma, Hx Chronic Obstructive Pulmonary Disease (COPD) GI History: Reports: Hx Gastroesophageal Reflux Disease, Hx Hiatal Hernia, Other GI Disorders - DIVERTICULITIS Denies: Hx Ulcer History: Denies: Hx Renal Disease Musculoskeletal History: Reports: Hx Arthritis - BACK, HIPS, Hx Back Problems - Hx back pain, Other Musculoskeletal History - DDD, S/P CERVICAL FUSION, CERVICAL SPINAL STENOSIS Sensory History: Reports: Hx Cataracts - LILY, Hx Contacts or Glasses Denies: Hx Hearing Aid Opthamlomology History: Reports: Hx Cataracts - LILY, Hx Contacts or Glasses Neurological History: Reports: Hx Headaches Denies: Hx CVA, Hx Dementia, Hx Seizures Psychiatric History: Reports: Hx Anxiety - R/T TMJ Denies: Hx Panic Disorder - Cancer History Cancer Type, Location and Year: SKIN CARCINOMA Hx Chemotherapy: No Hx Radiation Therapy: No - Surgical History Surgery Procedure, Year, and Place: CSP FUSED 1998 [place]. RIGHT LEG SURGERY, HARDWARE REMOVED 1999 [place]. cataracts. TUBAL LIGATION. 06/2017 -BACK SURGERY WITH CAGE/[facility] Anesthesia Reactions: Yes - AGITATION Infectious Disease History: No Infectious Disease History: Denies: Hx Clostridium Difficile, Hx Hepatitis, Hx Human Immunodeficiency Virus (HIV), Hx of Known/Suspected MRSA, Hx Shingles, Hx Tuberculosis, Hx Known/ Suspected VRE, Hx Known/Suspected VRSA, History Other Infectious Disease, Traveled Outside the in Last 30 Days - Family History Known Family History: Positive: Hypertension, Other - GERD, stroke (mother) - Social History Alcohol Use: None Hx Substance Use: No Substance Use Type: Reports: None Hx Tobacco Use: Yes Smoking Status (MU): Light Every Day Tobacco Smoker Type: Cigarettes Amount Used/How Often: 1 PACK A DAY Length of Time of Smoking/Using Tobacco: 50 YRS Have You Smoked in the Last Year: Yes Review of Systems Negative: Fever, Chills Positive: Other - NEGATIVE: DOUBLE VISION. Negative: Blurred Vision Negative: Sore Throat, Ear Ache Negative: Chest Pain Positive: Shortness Of Breath, Cough - PRODUCTIVE WITH YELLOW FLEM Positive: Abdominal Pain - MILD, Other - NEGATIVE: BLOOD IN STOOL, CONSTIPATION Negative: dysuria, hematuria Positive: Other - NEGATIVE: NECK PAIN AND BACK PAIN. Negative: Edema Negative: Rash, Bruising Negative: Headache Negative: Anxious, Depressed All Other Systems Reviewed And Are Negative: No Physical Exam - Summary Physical Exam Summary: Appearance: Alert, conversive, nontoxic appearing Skin: Warm, dry, no mottling, no rashes, no contusions HEENT: EOMI, PERRL, moist mucous membranes Neck: No masses on the neck, supple Respiratory: breath sounds present, no rales. Patient has rhonchi and wheezing. Cardiovascular: RRR, pulses are symmetrical in both lower and upper extremities Abdomen: Soft, non-tender Bowel Sounds: Present Musculoskeletal: No CVA tenderness, no obvious deformity, moving all extremities in a grossly normal manner Neurological: A&Ox3, CN II-XII Intact, moving all extremities symmetrically Psychiatric: Normal affect and mood Triage Information Reviewed: Yes Vital Signs On Initial Exam: Initial Vitals Temp Pulse Resp BP Pulse Ox 98.0 F 102 20 165/65 93 11/17/18 10:45 11/17/18 10:45 11/17/18 10:45 11/17/18 10:45 11/17/18 10:45 Vital Signs Reviewed: Yes Diagnostics - Vital Signs Vital Signs Temp Pulse Resp BP Pulse Ox 11/17/18 10:45 98.0 F 102 20 165/65 93 - Laboratory Result Diagrams: 11/17/18 11:11 11/17/18 11:11 Lab Statement: Any lab studies that have been ordered have been reviewed, and results considered in the medical decision making process. - Radiology CXR Radiology Interpretation Completed By: Radiologist Summary of Radiographic Findings: 1. HYPERINFLATION SUGGESTIVE OF COPD. 2. THERE IS PATCHY ATELECTASIS VERSUS EARLY CONSOLIDATION OF THE LEFT LUNG BASE. ED PHYSICIAN REVIEWED THIS RADIOLOGY REPORT. - EKG 1058 Cardiac Rate: Tachycardia - 101 BPM EKG Rhythm: Sinus Tachycardia - 101 BPM Summary of EKG Findings: LBBB, PRLONGED QTc AND QRS, NON-STEMI Re-Evaluation - Re-Evaluation First Eval Re-Evaluation Time: 12:32 Change: Unchanged Comment: PATIENT NOTED THAT SHE HAS BEEN SMOKING SINCE EARLY SEPTEMBER. SHE HAS HAD SOB AND COUGH FOR THE PAST WEEK PRODUCING YELLOW FLEM. Course/Dx - Course Course Of Treatment: A 72 y/o female brought in by ambulance presents to the ED c/o SOB and cough. In the ED room, the patient has a pulse of 104 BPM and O2 saturation of 93%. According to the patient, has had SOB and cough for the past week, coupled with mild abdominal pain. Her cough is productive with yellow flem. Physical examination findings significant for patient has rhonchi and wheezing present. A CXR revealed 1. Hyperinflation suggestive of COPD. 2. There is a adán atelectasis versus early consolidation of the left lung base. An EKG revealed sinus tachycardia of 101 BPM, LBBB, prolonged QTc and QRS, non-stemi. Hematology, Chemistry, and serology screens were done. No significant laboratory abnormalities were found except hyperglycemia of 102 mg/dL. Troponin I was 0.07. Influenza screens were negative. Patient care was discussed with hospitalist, Dr. Jerrod Daily, who accepts patient for admission. Patient will be admitted with a diagnosis of COPD exacerbation and pneumonia. Patient is agreeable with this plan. - Diagnoses Provider Diagnoses: COPD exacerbation, Pneumonia - Physician Notifications Discussed Care of Patient With: Jerrod Daily Time Discussed With Above Provider: 13:05 Instructed by Provider To: Other - ACCEPTS PATIENT FOR ADMISSION. Discharge - Sign-Out/Discharge Documenting (check all that apply): Patient Departure - ADMIT, Sign-Out Patient - NEHA Signing out patient TO: Jerrod Daily Receiving patient FROM: Roselyn Marcus - Discharge Plan Condition: Stable Disposition: ADMITTED TO [facility] Referrals: Nikolas NARAYAN,Jennifer Perry [Primary Care Provider] - - Billing Disposition and Condition Condition: STABLE Disposition: Admitted to [facility] - Attestation Statements Document Initiated by Amparo: Yes Documenting Scribe: Juan Ward Provider For Whom Sandieibe is Documenting (Include Credential): Roselyn Marcus MD Scribe Attestation: Juan Miller scribed for Roselyn Marcus MD on 11/17/18 at 1603. Scribe Documentation Reviewed: Yes Provider Attestation: The documentation as recorded by the Juan mcdonald accurately reflects the service I personally performed and the decisions made by me, Roselyn Marcus MD Status of Scribe Document: Viewed
[2018-11-17] MEDS ORDERED: Ketorolac INJ* 30 MG/ML 1 ML VIAL IV PUSH ONE (10:55)
[2018-11-17 11:36] LABS: ABS Basophils 0.1 10^3/ul (0-0.2); ABS Eosinophils 0.1 10^3/ul (0-0.6); ABS Lymphocytes 2.5 10^3/ul (1.0-4.8); ABS Monocytes 1.4 10^3/ul (0-0.8); ABS Neutrophils 9.1 10^3/ul (1.5-7.7); ABS Nucleated RBC 0 10^3/ul; Eosinophil % 0.7 %; Hematocrit 35 % (35-47); Hemoglobin 10.9 g/dl (12.0-16.0); Lymphocyte % 18.7 %; Mean Corpuscular HGB Conc 31 g/dl (31-36); Mean Corpuscular Hemoglobin 27 pg (27-31); Mean Corpuscular Volume 85 fL (80-97); Mean Platelet Volume 7.4 fL (7.4-10.4); Nucleated Red Blood Cells % 0; Platelet Count 544 10^3/ul (150-450); Red Cell Distribution Width 16 % (10.5-15); White Blood Count 13.2 10^3/ul (3.5-10.8)
[2018-11-17 11:41] LABS: Albumin 3.4 g/dL (3.2-5.2); BUN/Creatinine Ratio 26.7 (8-20); EGFR Non-African American 75.5 (>60); Globulin 3.5 g/dL (2-4); Total Bilirubin 0.3 mg/dL (0.2-1.0); Total Protein 6.9 g/dL (6.4-8.9)
[2018-11-17] MEDS ORDERED: cefTRIAXone(*) 1 GM in NS 0.9% 50 ML* 50 ML IVPB ONE (11:44)
[2018-11-17] MEDS ORDERED: Azithromycin TAB* 250 MG PO ONE (11:44)
[2018-11-17] MEDS ORDERED: cefTRIAXone(*) 1 GM ADVAN/BAG ONE (12:25)
[2018-11-17] MEDS ORDERED: Albuterol 2.5 MG/3 ML NEB.SOL* (0.083%) INH PRN (14:53)
[2018-11-17] MEDS ORDERED: Melatonin 3 MG TAB PO PRN (14:54)
[2018-11-17] MEDS ORDERED: traMADol TAB* 50 MG PO PRN (14:54)
[2018-11-17] MEDS ORDERED: Acetaminophen TAB* 325 MG PO PRN (15:35)
[2018-11-17] MEDS ORDERED: NS 0.9% 1000 ML* 1,000 ML IV SCH (16:30)
[2018-11-17] MEDS: Albuterol/Ipratropium NEB.SOL* Albuterol 2.5 MG/Ipratropium 0.5 MG 3 ML INH SCH (18:55)
--- NOTE | 2018-11-17 19:01 | HP ---
CC: Seferino Curry * HISTORY AND PHYSICAL: DATE OF ADMISSION: 11/17/18 PRIMARY CARE PROVIDER: Seferino Curry providers. ATTENDING PHYSICIAN: Dr. Jerrod Daily * (dictated by Abril Freitas NP). CHIEF COMPLAINT: Cough. Per Seferino Cee, the patient also had shortness of breath , hypoxia, hypotension, and confusion. HISTORY OF PRESENT ILLNESS: Ms. Willoughby is a 72-year-old female with past medical history significant for depression, anxiety, hypertension, insomnia, skin cancer, hyperlipidemia, GERD, an L3 fracture, emphysema, left bundle- branch block, sick sinus syndrome, scoliosis, and past history of multiple pressure injuries after being down for 4 days, around March 2018. According to Ms. Willoughby, she had been in her usual state of health when on 11/10/18, she developed a cough. She was seen 2 days ago by the nurse practitioner at the facility, who felt that she could have a pneumonia and started her on doxycycline. On 11/14/18, she had been noted to have a temperature of 101.3 according to the nursing notes. At that time, she was also complaining of a cough with yellow-green mucus and requiring intermittent oxygen due to hypoxia. She was started on doxycycline on 11/15/18 and has been taking doxycycline since. She denies fevers, chills, chest pain. She continues to report a productive cough with green mucus. She denies shortness of breath, nausea, vomiting, diarrhea. She is reporting abdominal discomfort when coughing, but no abdominal discomfort when she is not coughing. She is reporting stress incontinence when coughing. She denies lightheadedness, dizziness. She reports having no appetite at this time. [facility] to the emergency room for evaluation for rule out pneumonia, shortness of breath, dyspnea, hypoxia, hypotension, and confusion. While in the emergency room, she received 2 DuoNebs, azithromycin, ceftriaxone, Toradol, Solu-Medrol in a 500 mL bolus. She had labs showing white blood cell count 13.2, troponin of 0.07, BNP of 282. She had a chest x-ray showing hyperinflation suggestive of COPD, patchy atelectasis versus early consolidation of the left lung base. She had influenza A and B negative. An EKG showing a sinus tachycardia with a left bundle-branch block. She was requiring 2 to 4 L of oxygen while in the emergency room. She continued to have slight tachycardia, but was not tachypneic. She was found to be afebrile. The hospitalists were asked to evaluate the patient for admission. PAST MEDICAL HISTORY: 1. Depression. 2. Hypertension. 3. Anxiety. 4. Insomnia. 5. Basal cell skin carcinoma. 6. Hyperlipidemia. 7. GERD. 8. L3 fracture. 9. Emphysema. 10. Left bundle-branch block. 11. Sick sinus syndrome. 12. Scoliosis. 13. Sjogren's syndrome. 14. Ángel's thyroiditis. 15. T12 vertebral fracture. 16. History of AFib. PAST SURGICAL HISTORY: 1. Status post lumbar spine surgery, cage noted on chest x-ray. 2. Status post tubal ligation. 3. Status post ACDF at C4-5 and C5-6. HOME MEDICATIONS: Include: 1. Tramadol 50 mg every 6 hours as needed for pain. 2. Acetaminophen 1000 mg oral every 6 hours as needed for pain. 3. Prednisone 20 mg oral daily. 4. Cyclosporine 0.05% ophthalmic 1 drop to both eyes twice daily. 5. Mucinex 600 mg oral twice daily. 6. Potassium chloride 20 mEq oral daily. 7. Melatonin 3 mg oral daily at bedtime as needed for sleep. 8. Lexapro 10 mg oral every morning. 9. Levothyroxine 112 mcg oral every morning. 10. Ipratropium/albuterol sulfate 0.5/3, 3 mL inhalation 3 times daily. 11. Hydrochlorothiazide 25 mg oral every morning. 12. Gabapentin 600 mg oral 3 times daily. 13. Famotidine 40 mg oral daily. 14. Doxycycline 100 mg oral twice daily. 15. Diltiazem 240 mg oral daily. 16. Vitamin B12 500 mcg oral daily. 17. Cod liver oil 1 capsule oral daily. 18. Vitamin D 50,000 units oral monthly. 19. Benadryl 25 mg oral daily at bedtime. 20. Celebrex 100 mg oral twice daily. 21. Atorvastatin 20 mg oral daily. 22. Naproxen 220 mg oral every 8 hours. ALLERGIES: 1. WELLBUTRIN. 2. HYDROCODONE. 3. IODINE. 4. ANESTHESIA causes vomiting. 5. DECONGESTANTS cause hyperactivity. 6. PHENYLPROPANOLAMINE. 7. CHLORPHENIRAMINE. FAMILY HISTORY: The patient's mother with a history of heart disease. She denies any family history of diabetes. Her father had a history of lung cancer. SOCIAL HISTORY: Until recently, she was a former smoker with 2-rtxi-g-day, 50- year smoking history. She has recently starting smoking again, smoking 3 quarters of a pack on the weekends and 2 cigarettes daily when at the half-way. She denies alcohol, recreational drug use. Her son, Som Willoughby, will be her surrogate decision maker in the event she is unable to make decisions for herself. REVIEW OF SYSTEMS: I performed an 11-point review of systems. All the pertinent positives and negatives are mentioned in the history of present illness. The remaining review of systems are negative. PHYSICAL EXAMINATION GENERAL APPEARANCE: The patient is alert, pleasant, and appears to be in no acute distress. VITAL SIGNS: Temperature 98.0, heart rate 105, respiratory rate 16, O2 sat 97% on 3 L, blood pressure 151/96. HEENT: Normocephalic, atraumatic. Pupils are equal and reactive to light. Extraocular movements are intact. NECK: There is no lymphadenopathy noted. RESPIRATORY: There is no accessory muscle use. The lungs have some expiratory wheezing noted in the upper lobes and she was noted to have crackles in the left lung base. CARDIOVASCULAR: Regular rate and rhythm. Tachycardic. S1, S2 present. There are no murmurs, rubs, or gallops heard. ABDOMEN: Soft, nondistended. She has some mild tenderness to the right upper middle area. Her bowel sounds are present x4. EXTREMITIES: There is trace bilateral lower extremity, DP and PT pulses are 1+ and symmetric. MUSCULOSKELETAL: There is no clubbing or cyanosis noted. The patient exhibits good strength in all extremities. NEUROLOGIC: She is alert and oriented x4. Cranial nerves II through XII are grossly intact. PSYCHOLOGIC: She is calm and cooperative. SKIN: There are no rashes or abnormalities seen. DIAGNOSTIC STUDIES/LAB DATA: Sodium 140, potassium 4.0, chloride 102, CO2 28, BUN 20, creatinine 0.75, glucose 102. White blood cell count 13.2, hemoglobin 10.9, hematocrit 35, platelet count 544. Troponin 0.07, BNP 282. Influenza A and B negative. EKG shows a sinus tach, rate of 101 and a left bundle-branch block. This EKG is similar to previous from 04/13/18. At that time, she had T-wave inversion in V5 and V6, which has since resolved. Chest x-ray from today. Radiologist's impression: Hyperinflation suggestive of COPD. Patchy atelectasis versus early consolidation left lung base. IMPRESSION: Ms. Willoughby is a 72-year-old female with past medical history significant for depression, hypertension, anxiety, insomnia, skin cancer, hyperlipidemia, gastroesophageal reflux disease, emphysema, left bundle-branch block, who presented to the emergency room from [facility] with concerns for hypoxia and possible pneumonia. She will be admitted for community-acquired pneumonia as an observation. ASSESSMENT/PLAN: 1. Community-acquired pneumonia. We will treat the patient with ceftriaxone, azithromycin. I will get a sputum culture. We will check her urine for Legionella and S pneumoniae antigens. We will recheck a CBC in the morning. She will have albuterol as needed. I am going to place her on prednisone 40 mg oral daily. She is currently afebrile, has mild leukocytosis, slightly tachycardic, no tachypnea. She was noted to be slightly hypoxic with oxygen saturations in the high 80s on room air and the mid 90s on oxygen. She is influenza A and B negative. We will continue her on Mucinex b.i.d. 2. Chronic obstructive pulmonary disease. The patient has a history of emphysema. I do not feel that she has a chronic obstructive pulmonary disease exacerbation at this time as she does not have significant wheezing, but as noted above, we will place her on some prednisone for her pneumonia in addition to antibiotics and she will have albuterol nebulizers as needed. 3. Hypertension. She has been slightly hypertensive. I suspect she did not receive her blood pressure medications today. Continue her on her home medication of diltiazem. For today, I would like to hold her hydrochlorothiazide. This will be resumed tomorrow if she is doing well. We will monitor her blood pressures. If she remains hypertensive with systolics greater than 180, we will get her hydralazine today. 4. History of paroxysmal atrial fibrillation. She is not currently anticoagulated, I suspect due to her history of frequent falling. We will continue her on diltiazem. She is currently in a sinus tachycardia, no atrial fibrillation. 5. Elevated troponin. Troponin 0.07. This likely is her baseline. I will do 1 more troponin today. 6. Anemia. She appears to be near her baseline anemia. 7. Chronic pain with scoliosis. We will continue her on her tramadol and acetaminophen as needed. We will continue her on her Celebrex. 8. Hypoxia. She has previously been noted to be hypoxic with oxygen saturations in the 80s. I suspect this is likely her baseline with her underlying chronic obstructive pulmonary disease, but we will give her supplemental oxygen as needed to keep oxygen saturations greater than 88%. 9. Anxiety/depression. We will continue her on her home Lexapro. 10. Hypothyroidism. She will be continued on levothyroxine. 11. Insomnia. We will continue her on melatonin as needed. 12. Gastroesophageal reflux disease. We will continue her on her home famotidine or hospital auto-substitute. 13. Fluids, electrolytes, and nutrition: Heart-healthy diet. 14. Code status: Full code. 15. DVT prophylaxis: She is a highest risk. We will have her on subcu heparin and TEDs. 16. Disposition: Observation. TIME SPENT: Time for this admission was approximately 60 minutes, greater than half of that was spent with the patient discussing medications, past medical history, the events leading to her arrival today, and performing a physical examination. The case has been reviewed with the attending, Dr. Daily, who agrees with the plan of care. ABRIL FREITAS, CARINE [id number]/CPS #: [id number] DONY
[2018-11-17] MEDS: celeCOXIB CAP* 100 MG PO SCH (20:22)
[2018-11-17] MEDS: Gabapentin CAP(*) 300 MG PO SCH (20:22)
[2018-11-17] MEDS: guaiFENesin ER TAB 600 MG PO SCH (20:22)
[2018-11-17] MEDS: CMC:Cyclosporine 0.05% OPHTH (NF) 0.4 ML VIAL BOTH EYES SCH (21:29)
[2018-11-17] MEDS: Heparin VIAL(*) 5000 UNITS/ML VIAL (FIVE THOUSAND) SUBCUT SCH (21:33)
[2018-11-18] MEDS: Heparin VIAL(*) 5000 UNITS/ML VIAL (FIVE THOUSAND) SUBCUT SCH ×3 (05:44→21:13)
[2018-11-18] MEDS: Levothyroxine TAB* 112 MCG TAB PO SCH (05:44)
[2018-11-18 07:22] LABS: ABS Basophils 0 10^3/ul (0-0.2); ABS Eosinophils 0 10^3/ul (0-0.6); ABS Lymphocytes 1.2 10^3/ul (1.0-4.8); ABS Monocytes 0.9 10^3/ul (0-0.8); ABS Neutrophils 13.1 10^3/ul (1.5-7.7); ABS Nucleated RBC 0 10^3/ul; Eosinophil % 0 %; Hematocrit 33 % (35-47); Hemoglobin 10.3 g/dl (12.0-16.0); Lymphocyte % 7.7 %; Mean Corpuscular HGB Conc 32 g/dl (31-36); Mean Corpuscular Hemoglobin 27 pg (27-31); Mean Corpuscular Volume 84 fL (80-97); Mean Platelet Volume 7.7 fL (7.4-10.4); Nucleated Red Blood Cells % 0.1; Platelet Count 557 10^3/ul (150-450); Red Blood Count 3.89 10^6/ul (4.00-5.40); Red Cell Distribution Width 16 % (10.5-15); White Blood Count 15.2 10^3/ul (3.5-10.8)
[2018-11-18] MEDS: Albuterol/Ipratropium NEB.SOL* Albuterol 2.5 MG/Ipratropium 0.5 MG 3 ML INH SCH (07:33)
[2018-11-18 07:37] LABS: BUN/Creatinine Ratio 34.6 (8-20); Calcium 8.9 mg/dL (8.6-10.3); EGFR Non-African American 69.1 (>60)
[2018-11-18] MEDS ORDERED: NS 0.9% 1000 ML* 1,000 ML IV SCH (08:10)
[2018-11-18] MEDS ORDERED: Cholecalciferol TAB* 1000 UNITS PO SCH (09:00)
[2018-11-18] MEDS: Famotidine TAB* 20 MG PO SCH (10:28)
[2018-11-18] MEDS: Atorvastatin* 20 MG TAB PO SCH (10:29)
[2018-11-18] MEDS: Gabapentin CAP(*) 300 MG PO SCH ×3 (10:29→21:12)
[2018-11-18] MEDS: Azithromycin TAB* 250 MG PO SCH (10:29)
[2018-11-18] MEDS: predniSONE TAB* 20 MG PO SCH (10:31)
[2018-11-18] MEDS: Diltiazem CD CAP* 240 MG PO SCH (10:31)
[2018-11-18] MEDS: Potassium Chlor TAB* 20 MEQ TAB.ER PO SCH (10:31)
[2018-11-18] MEDS: Citalopram TAB* 20 MG PO SCH (10:31)
[2018-11-18] MEDS: Cyanocobalamin TAB* 500 MCG PO SCH (10:32)
[2018-11-18] MEDS: celeCOXIB CAP* 100 MG PO SCH ×2 (10:33→21:12)
[2018-11-18] MEDS: guaiFENesin ER TAB 600 MG PO SCH ×2 (10:34→21:13)
[2018-11-18] MEDS: CMC:Cyclosporine 0.05% OPHTH (NF) 0.4 ML VIAL BOTH EYES SCH ×2 (10:34→21:42)
[2018-11-18] MEDS: cefTRIAXone(*) 1 GM in NS 0.9% 50 ML* 50 ML IVPB SCH (12:18)
[2018-11-18] MEDS ORDERED: Diphenoxylat/Atrop 2.5-0.025M* 1 TAB PO ONE (14:48)
--- NOTE | 2018-11-18 16:33 | PN ---
Subjective Date of Service: 11/18/18 Interval History: pt reports she feels better today with less SOB. She continues to have wheezes, sputum production reporting her sputum has turned from yellow/green to white. Reports harsh cough. No fevers or chills. states her appetite is improving. No body aches/chills. Objective Active Medications: Acetaminophen (Tylenol Tab*) 975 mg PO Q6H PRN PRN Reason: FEVER/PAIN Albuterol (Ventolin 2.5 Mg/3 Ml Neb.Joyce*) 2.5 mg INH Q6H PRN PRN Reason: SOB/WHEEZING Atorvastatin Calcium (Lipitor*) 20 mg PO DAILY [facility] Last Admin: 11/18/18 10:29 Dose: 20 mg Azithromycin (Zithromax Tab*) 250 mg PO DAILY [facility] Stop: 11/22/18 08:59 Last Admin: 11/18/18 10:29 Dose: 250 mg Celecoxib (Celebrex Cap*) 100 mg PO BID [facility] Last Admin: 11/18/18 10:33 Dose: 100 mg Citalopram Hydrobromide (Celexa Tab*) 20 mg PO QAM [facility] Last Admin: 11/18/18 10:31 Dose: 20 mg Cyanocobalamin (Vitamin B12 Tab*) 500 mcg PO DAILY [facility] Last Admin: 11/18/18 10:32 Dose: 500 mcg Cyclosporine (Restasis 0.05% Oph) 1 drop BOTH EYES BID [facility]; Protocol Last Admin: 11/18/18 10:34 Dose: Not Given Diltiazem HCl (Cardizem Cd Cap*) 240 mg PO DAILY [facility] Last Admin: 11/18/18 10:31 Dose: 240 mg Famotidine (Pepcid Tab*) 40 mg PO DAILY [facility] Last Admin: 11/18/18 10:28 Dose: 40 mg Gabapentin (Neurontin Cap(*)) 600 mg PO TID [facility] Last Admin: 11/18/18 13:41 Dose: 600 mg Guaifenesin (Mucinex*) 600 mg PO BID [facility] Last Admin: 11/18/18 10:34 Dose: 600 mg Heparin Sodium (Porcine) (Heparin Vial(*)) 5,000 units SUBCUT Q8HR [facility] Last Admin: 11/18/18 13:44 Dose: 5,000 units Ceftriaxone Sodium 1 gm/ (Sodium Chloride) 50 mls @ 200 mls/hr IVPB Q24H [facility] Last Admin: 11/18/18 12:18 Dose: 200 mls/hr Sodium Chloride (Ns 0.9% 1000 Ml*) 1,000 mls @ 100 mls/hr IV PER RATE [facility] Stop: 11/19/18 18:09 Last Admin: 11/18/18 10:44 Dose: 100 mls/hr Levothyroxine Sodium (Synthroid Tab*) 112 mcg PO QAM@0600 [facility] Last Admin: 11/18/18 05:44 Dose: 112 mcg Melatonin (Melatonin) 3 mg PO BEDTIME PRN; Protocol PRN Reason: SLEEP Potassium Chloride (Klor Con Er Tab*) 20 meq PO DAILY [facility] Last Admin: 11/18/18 10:31 Dose: 20 meq Prednisone (Deltasone Tab*) 40 mg PO DAILY [facility] Last Admin: 11/18/18 10:31 Dose: 40 mg Tramadol HCl (Ultram*) 50 mg PO Q6HR PRN PRN Reason: PAIN Vital Signs - 8 hr 11/18/18 11/18/18 11/18/18 08:38 10:29 12:00 Temperature 97.9 F Pulse Rate 108 Respiratory 16 17 16 Rate Blood Pressure 156/80 (mmHg) O2 Sat by Pulse 92 Oximetry 11/18/18 11/18/18 11/18/18 12:22 13:41 15:30 Temperature 97.4 F Pulse Rate 99 Respiratory 20 17 16 Rate Blood Pressure 158/85 (mmHg) O2 Sat by Pulse 95 Oximetry Oxygen Devices in Use Now: Nasal Cannula Appearance: 72 yo female A+O x3 in NAD Eyes: No Scleral Icterus, PERRLA Ears/Nose/Mouth/Throat: Mucous Membranes Moist Respiratory: Symmetrical Chest Expansion and Respiratory Effort, - - insp and exp wheezing throughout; rhocnhi throughout; however there is good air movement Abdominal: NL Sounds; No Tenderness; No Distention, - - obese Extremities: No Edema, No Clubbing, Cyanosis Neurological: Alert and Oriented x 3, NL Sensation, NL Muscle Strength and Tone Lines/Tubes/Other Access: Clean, Dry and Intact Peripheral IV Nutrition: Taking PO's Result Diagrams: 11/18/18 06:55 11/18/18 06:55 Microbiology and Other Data: Microbiology 11/17/18 11:01 Influenza Types A,B Antigen - Final Nasal Specimen received for Influenza A/B Molecular testing Assess/Plan/Problems-Billing Assessment: 72 yo female with PMH of depression, HTN, anxiety, GERD, insomnia who resides at [place] and presented with hypoxia admitted for CAP - Patient Problems (1) Pneumonia Comment: Improving Flu negative continue azithro and ceftriaxone continue prednisone start Flutter valve Continue neb, inhlaers, mucinex smoking cessation sputum cx (2) HTN (hypertension) Comment: - Continue Diltiazem (3) Hypothyroid Comment: continue synthroid (4) DVT prophylaxis Comment: - Heparin subQ (5) Full code status Status and Disposition: inpatient for tx of pneumonia. DC back to [place] when medically stable.
[2018-11-19] MEDS: Levothyroxine TAB* 112 MCG TAB PO SCH (05:17)
[2018-11-19] MEDS: Heparin VIAL(*) 5000 UNITS/ML VIAL (FIVE THOUSAND) SUBCUT SCH ×3 (05:18→21:10)
[2018-11-19 07:36] LABS: BUN/Creatinine Ratio 36.4 (8-20); Calcium 9.1 mg/dL (8.6-10.3); EGFR Non-African American 54.8 (>60); Potassium 4.1 mmol/L (3.5-5.0)
[2018-11-19 07:37] LABS: Hematocrit 29 % (35-47); Hemoglobin 9.1 g/dl (12.0-16.0); Mean Corpuscular HGB Conc 31 g/dl (31-36); Mean Corpuscular Hemoglobin 26 pg (27-31); Mean Corpuscular Volume 84 fL (80-97); Mean Platelet Volume 7.9 fL (7.4-10.4); Platelet Count 523 10^3/ul (150-450); Red Cell Distribution Width 16 % (10.5-15); White Blood Count 21.5 10^3/ul (3.5-10.8)
[2018-11-19 08:12] LABS: ABS Basophils 0.1 10^3/ul (0-0.2); ABS Eosinophils 0 10^3/ul (0-0.6); ABS Lymphocytes 1.7 10^3/ul (1.0-4.8); ABS Monocytes 1.4 10^3/ul (0-0.8); ABS Neutrophils 18.2 10^3/ul (1.5-7.7); ABS Nucleated RBC 0 10^3/ul; Eosinophil % 0 %; Lymphocyte % 8.1 %; Nucleated Red Blood Cells % 0
[2018-11-19] MEDS: Famotidine TAB* 20 MG PO SCH (10:21)
[2018-11-19] MEDS: celeCOXIB CAP* 100 MG PO SCH ×2 (10:21→21:07)
[2018-11-19] MEDS: Gabapentin CAP(*) 300 MG PO SCH ×3 (10:21→21:09)
[2018-11-19] MEDS: Potassium Chlor TAB* 20 MEQ TAB.ER PO SCH (10:21)
[2018-11-19] MEDS: Atorvastatin* 20 MG TAB PO SCH (10:21)
[2018-11-19] MEDS: guaiFENesin ER TAB 600 MG PO SCH ×2 (10:21→21:07)
[2018-11-19] MEDS: Citalopram TAB* 20 MG PO SCH (10:22)
[2018-11-19] MEDS: Diltiazem CD CAP* 240 MG PO SCH (10:22)
[2018-11-19] MEDS: Azithromycin TAB* 250 MG PO SCH (10:22)
[2018-11-19] MEDS: predniSONE TAB* 20 MG PO SCH (10:22)
[2018-11-19] MEDS: Cyanocobalamin TAB* 500 MCG PO SCH (10:22)
[2018-11-19] MEDS: CMC:Cyclosporine 0.05% OPHTH (NF) 0.4 ML VIAL BOTH EYES SCH ×2 (10:29→21:07)
[2018-11-19] MEDS: cefTRIAXone(*) 1 GM in NS 0.9% 50 ML* 50 ML IVPB SCH (13:07)
--- NOTE | 2018-11-19 14:33 | PN ---
Subjective Date of Service: 11/19/18 Interval History: Pt reports beginning of cold sore. Feeling a little better today. Reports generalized fatigue. No SOB. Occasional cough with some sputum production. Denies fever/chills Objective Active Medications: Acetaminophen (Tylenol Tab*) 975 mg PO Q6H PRN PRN Reason: FEVER/PAIN Albuterol (Ventolin 2.5 Mg/3 Ml Neb.Joyce*) 2.5 mg INH Q6H PRN PRN Reason: SOB/WHEEZING Last Admin: 11/18/18 17:02 Dose: 2.5 mg Atorvastatin Calcium (Lipitor*) 20 mg PO DAILY [facility] Last Admin: 11/19/18 10:21 Dose: 20 mg Azithromycin (Zithromax Tab*) 250 mg PO DAILY [facility] Stop: 11/22/18 08:59 Last Admin: 11/19/18 10:22 Dose: 250 mg Celecoxib (Celebrex Cap*) 100 mg PO BID [facility] Last Admin: 11/19/18 10:21 Dose: 100 mg Citalopram Hydrobromide (Celexa Tab*) 20 mg PO QAM [facility] Last Admin: 11/19/18 10:22 Dose: 20 mg Cyanocobalamin (Vitamin B12 Tab*) 500 mcg PO DAILY [facility] Last Admin: 11/19/18 10:22 Dose: 500 mcg Cyclosporine (Restasis 0.05% Oph) 1 drop BOTH EYES BID [facility]; Protocol Last Admin: 11/19/18 10:29 Dose: Not Given Diltiazem HCl (Cardizem Cd Cap*) 240 mg PO DAILY [facility] Last Admin: 11/19/18 10:22 Dose: 240 mg Famotidine (Pepcid Tab*) 40 mg PO DAILY [facility] Last Admin: 11/19/18 10:21 Dose: 40 mg Gabapentin (Neurontin Cap(*)) 600 mg PO TID [facility] Last Admin: 11/19/18 13:07 Dose: 600 mg Guaifenesin (Mucinex*) 600 mg PO BID [facility] Last Admin: 11/19/18 10:21 Dose: 600 mg Heparin Sodium (Porcine) (Heparin Vial(*)) 5,000 units SUBCUT Q8HR [facility] Last Admin: 11/19/18 13:08 Dose: 5,000 units Ceftriaxone Sodium 1 gm/ (Sodium Chloride) 50 mls @ 200 mls/hr IVPB Q24H [facility] Last Admin: 11/19/18 13:07 Dose: 200 mls/hr Levothyroxine Sodium (Synthroid Tab*) 112 mcg PO QAM@0600 [facility] Last Admin: 11/19/18 05:17 Dose: 112 mcg Melatonin (Melatonin) 3 mg PO BEDTIME PRN; Protocol PRN Reason: SLEEP Potassium Chloride (Klor Con Er Tab*) 20 meq PO DAILY [facility] Last Admin: 11/19/18 10:21 Dose: 20 meq Prednisone (Deltasone Tab*) 40 mg PO DAILY [facility] Last Admin: 11/19/18 10:22 Dose: 40 mg Tramadol HCl (Ultram*) 50 mg PO Q6HR PRN PRN Reason: PAIN Vital Signs - 8 hr 11/19/18 11/19/18 11/19/18 07:49 08:38 08:39 Temperature 98.6 F Pulse Rate 73 75 Respiratory 16 14 Rate Blood Pressure 127/52 (mmHg) O2 Sat by Pulse 96 96 96 Oximetry 11/19/18 11/19/18 11/19/18 09:01 10:21 11:50 Temperature 98.5 F Pulse Rate 64 Respiratory 16 16 20 Rate Blood Pressure 129/56 (mmHg) O2 Sat by Pulse 98 Oximetry 11/19/18 11/19/18 13:01 13:07 Temperature Pulse Rate Respiratory 16 16 Rate Blood Pressure (mmHg) O2 Sat by Pulse Oximetry Oxygen Devices in Use Now: Nasal Cannula Appearance: 72 yo female laying in bed A+O x3 in NAD Eyes: No Scleral Icterus, PERRLA Ears/Nose/Mouth/Throat: NL Teeth, Lips, Gums, Mucous Membranes Moist Neck: NL Appearance and Movements; NL JVP Respiratory: Symmetrical Chest Expansion and Respiratory Effort, - - rhonchi b/ l Cardiovascular: NL Sounds; No Murmurs; No JVD, RRR, No Edema Abdominal: NL Sounds; No Tenderness; No Distention Extremities: No Edema, No Clubbing, Cyanosis Skin: No Rash or Ulcers, No Nodules or Sclerosis Neurological: Alert and Oriented x 3, NL Sensation, NL Muscle Strength and Tone Lines/Tubes/Other Access: Clean, Dry and Intact Peripheral IV Nutrition: Taking PO's Result Diagrams: 11/19/18 06:47 11/19/18 06:47 Microbiology and Other Data: Microbiology 11/17/18 11:01 Influenza Types A,B Antigen - Final Nasal Specimen received for Influenza A/B Molecular testing Assess/Plan/Problems-Billing Assessment: 72 yo female with PMH of depression, HTN, anxiety, GERD, insomnia who resides at [place] and presented with hypoxia admitted for CAP - Patient Problems (1) Pneumonia Comment: Slowly Improving Flu negative continue azithro and ceftriaxone continue prednisone start Flutter valve Continue neb, inhlaers, mucinex smoking cessation sputum cx (2) Herpes labialis without complication Comment: - give Valtrex x 2 doses - continue to monitor (3) Tobacco abuse Comment: current nicotine replacement tx provided (4) HTN (hypertension) Comment: - Continue Diltiazem (5) Hypothyroid Comment: continue synthroid (6) DVT prophylaxis Comment: - Heparin subQ (7) Full code status Status and Disposition: inpatient for tx of pneumonia. DC back to [place] when medically stable.
[2018-11-19] MEDS ORDERED: Loperamide CAP* 2 MG PO ONE ×2 (14:52→21:28)
[2018-11-19] MEDS: ValACYclovir (*) 1 GM TAB PO SCH (21:07)
[2018-11-20] MEDS: Levothyroxine TAB* 112 MCG TAB PO SCH (05:55)
[2018-11-20] MEDS: Heparin VIAL(*) 5000 UNITS/ML VIAL (FIVE THOUSAND) SUBCUT SCH (05:55)
[2018-11-20 07:32] LABS: Hematocrit 29 % (35-47); Hemoglobin 9.2 g/dl (12.0-16.0); Mean Corpuscular HGB Conc 32 g/dl (31-36); Mean Corpuscular Hemoglobin 27 pg (27-31); Mean Corpuscular Volume 84 fL (80-97); Mean Platelet Volume 7.7 fL (7.4-10.4); Platelet Count 540 10^3/ul (150-450); Red Blood Count 3.44 10^6/ul (4.00-5.40); Red Cell Distribution Width 16 % (10.5-15); White Blood Count 16.8 10^3/ul (3.5-10.8)
[2018-11-20 07:50] LABS: BUN/Creatinine Ratio 33.3 (8-20); Calcium 8.8 mg/dL (8.6-10.3); EGFR Non-African American 58.9 (>60); Potassium 4.1 mmol/L (3.5-5.0)
[2018-11-20 08:10] LABS: Immature Granulocytes 1 % (0-9); Lymphocytes % 20 %; Monocytes % 5 %; Myelocytes % 1 % (0-1); Neutrophil % 74 %
[2018-11-20 08:11] LABS: Polychromasia 1+
[2018-11-20 08:12] LABS: ABS Neutrophils 12.6 10^3/ul (1.5-7.7)
[2018-11-20] MEDS: Diltiazem CD CAP* 240 MG PO SCH (10:41)
[2018-11-20] MEDS: celeCOXIB CAP* 100 MG PO SCH (10:41)
[2018-11-20] MEDS: Gabapentin CAP(*) 300 MG PO SCH (10:41)
[2018-11-20] MEDS: Atorvastatin* 20 MG TAB PO SCH (10:42)
[2018-11-20] MEDS: Potassium Chlor TAB* 20 MEQ TAB.ER PO SCH (10:42)
[2018-11-20] MEDS: ValACYclovir (*) 1 GM TAB PO SCH (10:42)
[2018-11-20] MEDS: predniSONE TAB* 20 MG PO SCH (10:42)
[2018-11-20] MEDS: Azithromycin TAB* 250 MG PO SCH (10:42)
[2018-11-20] MEDS: Famotidine TAB* 20 MG PO SCH (10:42)
[2018-11-20] MEDS: guaiFENesin ER TAB 600 MG PO SCH (10:42)
[2018-11-20] MEDS: Citalopram TAB* 20 MG PO SCH (10:43)
[2018-11-20] MEDS: Cyanocobalamin TAB* 500 MCG PO SCH (10:43)
[2018-11-20] MEDS: CMC:Cyclosporine 0.05% OPHTH (NF) 0.4 ML VIAL BOTH EYES SCH (10:48)
[2018-11-20] MEDS ORDERED: Albuterol 2.5 MG/3 ML NEB.SOL* (0.083%) INH PRN (11:02)
[2018-11-20 12:42] VITALS: BP 136/69
[2018-11-20] MEDS: cefTRIAXone(*) 1 GM in NS 0.9% 50 ML* 50 ML IVPB SCH (13:00)
--- NOTE | 2018-11-20 13:43 | DS ---
CC: Providers at [facility] * DATE OF ADMISSION: 11/17/18 DATE OF DISCHARGE: 11/20/18 PRIMARY CARE PROVIDER: Providers at [facility]. PRINCIPAL DIAGNOSIS: Community-acquired pneumonia. SECONDARY DIAGNOSES: 1. Depression. 2. Hypertension. 3. Anxiety. 4. Insomnia. 5. Gastroesophageal reflux disease. 6. Chronic obstructive pulmonary disease. 7. Hypothyroidism. 8. History of atrial fibrillation. DISCHARGE MEDICATIONS: 1. Tylenol 1000 mg p.o. q.6 hours p.r.n. pain. 2. Lipitor 20 mg p.o. daily. 3. Azithromycin 250 mg p.o. daily x3 doses. 4. Cefpodoxime 200 mg p.o. q.12 hours x8 doses. 5. Celebrex 100 mg p.o. b.i.d. 6. Vitamin D 50,000 units p.o. monthly. 7. Cod liver oil one capsule p.o. daily. 8. Vitamin B12 500 mcg p.o. daily. 9. Restasis one drop to both eyes b.i.d. 10. Diltiazem ER 240 mg p.o. daily. 11. Benadryl 25 mg p.o. q.h.s. 12. Lexapro 10 mg p.o. daily. 13. Famotidine 40 mg daily. 14. Gabapentin 600 mg p.o. t.i.d. 15. Guaifenesin 600 mg p.o. b.i.d. x10 days, then b.i.d. p.r.n. 16. Hydrochlorothiazide 25 mg p.o. daily. 17. DuoNeb 1 neb inhale q.4 hours while awake x10 days and return to 1 neb inhale t.i.d. 18. Levothyroxine 112 mcg p.o. daily. 19. Melatonin 3 mg p.o. q.h.s. p.r.n. insomnia. 20. Naproxen 220 mg p.o. q.8 hours. 21. Potassium chloride 20 mEq p.o. daily. 22. Prednisone 40 mg p.o. daily x2 days and 30 mg x2 days, and 20 mg x2 days, and 10 mg x2 days. 23. Tramadol 50 mg p.o. q.6 hours p.r.n. pain. HOSPITAL COURSE: Ms. Willoughby is a 72-year-old female current resident of [facility], who presented to the emergency room with complaints of cough and recent diagnosis of pneumonia. The patient states her cough began on 11/10/18. On 11/15/18, she was seen by the nurse practitioner at the facility, who felt that she could likely have a pneumonia and therefore started her on doxycycline. On 11/14/18, she had a fever of 101.3. The patient continues to have cough, decreased appetite, and shortness of breath and therefore was sent to the emergency room for evaluation. The patient was ruled out for influenza. She was diagnosed with a probable community-acquired pneumonia and likely COPD without clear evidence for COPD exacerbation. The patient states over the next 2 days, she has had improvement in her shortness of breath and cough. She at this point feels that she is able to go back to [facility] to continue on antibiotic therapy and to receive nebulizer treatments. The patient is still mildly hypoxic and requiring 2 L of oxygen to maintain a saturation in the low 90s. Over time, as the patient improves from a respiratory standpoint, the O2 can likely be weaned off at [facility]. The patient will continue on Vantin times another 4 days and azithromycin for another 3 days. She will also be on a prednisone taper. There is no wheezing in the lungs at this time. She does state that she has had approximately 2 loose stools per day. She states she has been incontinent of the stool. She states she suddenly gets the urge to go and before she knows that she has had a bowel movement in bed. We did discuss trying schedule toileting to see if that helps with the incontinence. In terms of the patient's chronic medical conditions, her COPD seems to be not in exacerbation, though she will continue on prednisone as above. She is mildly hypertensive at this time, but her hydrochlorothiazide has been held and this would be resumed on discharge. She does have an elevated troponin chronically and this was the case this admission with the troponin being elevated at 0.07 on admission. This is within her range. On the day of discharge, the patient is awake, alert, and oriented sitting up in bed, appearing to be comfortable, drinking tea and in no acute distress. Her cardiac exam revealed a normal S1 and S2 with a regular rate and rhythm. Her lungs were clear. Her abdomen is soft, nontender, nondistended. Of note, the patient's hemoglobin dropped from 10.9 on admission down to 9.2. She did receive 2 liters of saline. Her hemoglobin has been stable over the last 2 days. This can be followed as an outpatient. I note her leukocytosis had worsened up until the 11/19/18. However, this is likely secondary to prednisone usage. The white blood cell count has trended down today. I recommend this patient have a CBC obtained on 11/27/17 to ensure that her lab abnormalities have normalized. Also, of note the patient's BUN is elevated. There has been no evidence of GI bleeding, though this also should be followed up. FOLLOWUP CONCERNS: The patient is being discharged back to [facility] today , 11/20/18. ACTIVITY LEVEL: As tolerated. DIET: Regular. CONDITION ON DISCHARGE: Stable. TIME SPENT: Thirty-five minutes was spent discharging this patient. [id number]/[facility] #: [id number] MTDD
== END 2018-11-20 14:00 | DRG 195 ==
LOC: ED 10:37 → MED 14:16 → OBSVTOIN 11-18 15:43
PROVIDERS: ADMIT Internal Medicine; ATTEND Hospitalist
DX: J18.9 Pneumonia, unspecified organism (principal); F32.9 Major depressive disorder, single episode, unspecified; I10 Essential (primary) hypertension; F41.9 Anxiety disorder, unspecified; G47.00 Insomnia, unspecified; K21.9 Gastro-esophageal reflux disease without esophagitis; E03.9 Hypothyroidism, unspecified; R09.02 Hypoxemia; R74.8 Abnormal levels of other serum enzymes; R15.9 Full incontinence of feces; E78.5 Hyperlipidemia, unspecified; J43.9 Emphysema, unspecified; I44.7 Left bundle-branch block, unspecified; M35.00 Sjogren syndrome, unspecified; I49.5 Sick sinus syndrome; M41.9 Scoliosis, unspecified; I48.0 Paroxysmal atrial fibrillation; D64.9 Anemia, unspecified; G89.29 Other chronic pain; M32.9 Systemic lupus erythematosus, unspecified; K44.9 Diaphragmatic hernia without obstruction or gangrene; M16.0 Bilateral primary osteoarthritis of hip; M46.90 Unspecified inflammatory spondylopathy, site unspecified; B00.1 Herpesviral vesicular dermatitis; F17.210 Nicotine dependence, cigarettes, uncomplicated; Z98.51 Tubal ligation status; Z98.1 Arthrodesis status; Z88.5 Allergy status to narcotic agent; Z88.8 Allergy status to other drugs, medicaments and biological substances; Z82.49 Family history of ischemic heart disease and other diseases of the circulatory system; Z85.828 Personal history of other malignant neoplasm of skin; Z99.81 Dependence on supplemental oxygen; Z98.42 Cataract extraction status, left eye; Z98.41 Cataract extraction status, right eye; Z83.79 Family history of other diseases of the digestive system; Z80.1 Family history of malignant neoplasm of trachea, bronchus and lung
CPT/HCPCS: 36415; 71045; 80048; 80053; 83880; 84145; 84484; 85025; 93005; 94640; 99284; 99406; A9270-GY; G0378; J0696; J1644; J1885; J2930; J7512

== ENCOUNTER 2021-05-04 04:58 | Inpatient (IN) ==
[2021-05-04] MEDS ORDERED: Tetan/Diph/Pertus SYR(Tdap) 0.5 ML SYR(BOOSTRIX) use SYR contains LATEX IM ONE (05:46)
[2021-05-04 05:50] LABS: ABS Basophils 0.1 10^3/ul (0-0.2); ABS Eosinophils 0.4 10^3/ul (0-0.6); ABS Lymphocytes 3.7 10^3/ul (1.0-4.8); ABS Monocytes 1.1 10^3/ul (0-0.8); ABS Neutrophils 5.9 10^3/ul (1.5-7.7); Eosinophil % 3.3 %; Hematocrit 43 % (35-47); Hemoglobin 14.5 g/dL (12.0-16.0); Lymphocyte % 33.3 %; Mean Corpuscular HGB Conc 34 g/dL (31-36); Mean Corpuscular Hemoglobin 32 pg (27-31); Mean Corpuscular Volume 94 fL (80-97); Mean Platelet Volume 7.6 fL (7.4-10.4); Platelet Count 385 10^3/uL (150-450); Red Blood Count 4.58 10^6 /uL (3.70-4.87); Red Cell Distribution Width 15 % (10-15); White Blood Count 11.2 10^3/uL (3.5-10.8)
[2021-05-04 05:56] LABS: Activated Partial Thrombo Time 39.5 seconds (26.0-38.0); INR 0.89 (0.82-1.09)
[2021-05-04 06:05] LABS: Albumin/Globulin Ratio 1.3 (1-3); Calcium 9.6 mg/dL (8.6-10.3); EGFR African American 68.2 (>60); EGFR Non-African American 56.4 (>60); Globulin 3.2 g/dL (2-4); Magnesium 1.8 mg/dL (1.9-2.7); Total Bilirubin 0.3 mg/dL (0.2-1.0); Total Protein 7.2 g/dL (6.4-8.9)
[2021-05-04 06:07] LABS: Potassium 3.6 mmol/L (3.5-5.0)
[2021-05-04 06:07] LABS: Urine Appearance Cloudy; Urine Bilirubin Negative (Negative); Urine Blood 1+ (Negative); Urine Color Yellow; Urine Glucose Negative (Negative); Urine Ketones Negative (Negative); Urine Nitrite Negative (Negative); Urine Protein Negative (Negative); Urine Specific Gravity 1.017 (1.002-1.030); Urine Urobilinogen Negative (Negative)
[2021-05-04 06:13] LABS: Urine Bacteria 1+ (Absent); Urine Red Blood Cell Absent (Absent); Urine Squamous Epithelial Cell Present (Absent); Urine White Blood Cell 2+(11-20/hpf) (Absent)
[2021-05-04 06:20] LABS: TSH Ultra Thyroid Stim Horm 5.83 mcIU/mL (0.34-5.60)
[2021-05-04] MEDS ORDERED: Magnesium Hydroxide LIQ 30 ML UDC PO PRN (08:04)
[2021-05-04] MEDS ORDERED: NS 0.9% 500 ml BAG 500 ML IV ONE (08:24)
[2021-05-04] MEDS ORDERED: Gadoteridol (CONTRAST) 279.3 MG/ML 10 ML IV ONE (13:47)
[2021-05-04] MEDS: Calcium Citrate 200 mg TAB PO SCH (22:02)
[2021-05-05 08:38] LABS: ABS Basophils 0.1 10^3/ul (0-0.2); ABS Eosinophils 0.2 10^3/ul (0-0.6); ABS Lymphocytes 1.9 10^3/ul (1.0-4.8); ABS Monocytes 0.9 10^3/ul (0-0.8); Eosinophil % 2.5 %; Hematocrit 45 % (35-47); Hemoglobin 14.8 g/dL (12.0-16.0); Mean Corpuscular HGB Conc 33 g/dL (31-36); Mean Corpuscular Hemoglobin 32 pg (27-31); Mean Corpuscular Volume 96 fL (80-97); Mean Platelet Volume 7.5 fL (7.4-10.4); Nucleated Red Blood Cells % 0.2; Platelet Count 336 10^3/uL (150-450); Red Blood Count 4.68 10^6 /uL (3.70-4.87); Red Cell Distribution Width 15 % (10-15); White Blood Count 8.1 10^3/uL (3.5-10.8)
[2021-05-05 08:50] LABS: Calcium 9.6 mg/dL (8.6-10.3); EGFR African American 99.8 (>60); EGFR Non-African American 82.5 (>60); Potassium 3.5 mmol/L (3.5-5.0)
[2021-05-05] MEDS: DULoxetine DR 60 mg CAP PO SCH (10:10)
[2021-05-05 10:43] LABS: HDL Cholesterol 58.4 mg/dL
[2021-05-05] MEDS: Calcium Citrate 200 mg TAB PO SCH ×2 (12:32→20:53)
[2021-05-06] MEDS: Calcium Citrate 200 mg TAB PO SCH ×2 (10:25→22:03)
[2021-05-06] MEDS: DULoxetine DR 60 mg CAP PO SCH (10:25)
[2021-05-07] MEDS: Calcium Citrate 200 mg TAB PO SCH ×2 (09:17→23:14)
[2021-05-07] MEDS: DULoxetine DR 60 mg CAP PO SCH (09:17)
[2021-05-08] MEDS: DULoxetine DR 60 mg CAP PO SCH (08:58)
[2021-05-08] MEDS: Calcium Citrate 200 mg TAB PO SCH (08:58)
[2021-05-08 12:53] VITALS: BP 141/65
== END 2021-05-08 15:15 ==
LOC: ED 04:58 → MEDTELE 04:58 → MED 05-05 01:03
PROVIDERS: ADMIT Hospitalist; ATTEND Hospitalist